=== PATIENT | female | born 1960 | race Caucasian/White ===

== ENCOUNTER → 2018-07-17 07:42 | Outpatient (CLI) | payer OTHER, SELFPAY ==
--- NOTE | 2018-07-17 07:45 | BI_ITS ---
MAMMOGRAPHY - BILATERAL SCREENING REASON FOR EXAM: Female, 57 years old. Routine annual screening examination. PERTINENT HISTORY: Aunt with breast cancer. TECHNIQUE: Digital bilateral breast tomasa (3D mammographic acquisition) in the CC and MLO projections. 2-D mediolateral oblique (MLO) and craniocaudad (CC) views of both breasts were obtained. CAD: Full Field Digital Mammography with Computer Added Detection was performed. COMPARISON: Comparison is made with prior examination of July 05, 2016 and April 12, 2012. FINDINGS: Breast Composition: The breasts are heterogeneously dense, which may obscure small masses. There are no dominant masses or suspicious calcifications. No other significant abnormalities are identified. There has been no significant change since the prior study. BI/SCREENING MAMM (CAD), BILAT IMPRESSION: Stable bilateral screening mammogram. Yearly follow-up mammogram recommended. (A) ASSESSMENT CATEGORY: BIRADS Category 1: Negative. A letter regarding these results will be sent to the patient by the facility within 30 days. Approximately 10% of breast cancers are not detected by mammography. A normal mammogram should not delay biopsy of a clinically suspicious abnormality. [id number] Electronically Signed: Willy Wheat MD at 9:36 EDT Tel [phone], Service support ,
--- NOTE | 2018-07-17 08:08 | BD_ITS ---
STUDY: DUAL ENERGY X-RAY ABSORPTIOMETRY / DXA REASON FOR EXAM: Female, 57 years old. The patient is postmenopausal. Loss of height. TECHNIQUE: Bone Mineral Density (BMD) measurements of lumbar spine and bilateral hips were obtained. COMPARISON: Comparison is made with prior study dated July 05, 2016. FINDINGS: Lumbar Spine (L1-L4): g/cm2 (0.990) / T-score (-1.5) / Z-score (-0.5) Findings are suggestive of osteopenia with a moderate fracture risk. Left Femur Total: g/cm2 (0.915) / T-score (-0.7) / Z-score (0.1) Left Femoral Neck: g/cm2 (0.883) / T-score (-1.1) / Z-score (0.0) Right Femur Total: g/cm2 (0.863) / T-score (-1.1) / Z-score (-0.3) Right Femoral Neck: g/cm2 (0.839) / T-score (-1.4) / Z-score (-0.3) The T-Scores on the most recent prior examination were: Lumbar Spine (L1-L4): There has been worsening of bone density since the previous examination. Left Femur Total: which represents a worsening of 8.1%. Right Femur Total: which represents a worsening of 5.7%. BD/Dexa Bone Density Study IMPRESSION: The patient is considered osteopenic as outlined below according to World Aram Organization (WHO) criteria with a moderate fracture risk. There has been worsening of bone density since the previous examination. Reference Information: The T-score is the number of standard deviations above or below the standard which is normal for young adults at their peak bone mineral density. The World Health Organization (WHO) interprets the T-scores as follows: Above -1 Normal bone density Between -1 and -2.5 Osteopenia Equal to / or below -2.5 Osteoporosis As a practical clinical guideline, osteopenia may be graded as follows: Mild -1 through -1.5 Moderate -1.6 through -2.0 Severe -2.1 through -2.4 The Z-score is the number of standard deviations above or below age-matched controls. A Z-score of less than -1.5 would be considered abnormal. References: 1. NIH Osteoporosis and Related Bone Diseases http://www.osteo.org 2. International Society for Clinical Densitometry http://www.iscd.org 3. National Osteoporosis Foundation http://www.nof.org Electronically Signed: Willy Wheat MD at 13:56 EDT Tel [phone], Service support ,
== END ==
PROVIDERS: Family Provider Internal Medicine; PCP Internal Medicine; Referring Provider Internal Medicine; Visit Provider Internal Medicine
DX: Z12.31 Encounter for screening mammogram for malignant neoplasm of breast (principal); Z78.0 Asymptomatic menopausal state
CPT/HCPCS: 77063; 77067; 77080

== ENCOUNTER → 2021-04-06 15:44 | Outpatient (CLI) | payer OTHER, SELFPAY ==
--- NOTE | 2021-04-06 15:47 | BI_ITS ---
MAMMOGRAPHY - BILATERAL SCREENING 3-D TOMOSYNTHESIS REASON FOR EXAM: Female, 60 years old. SCREENING PERTINENT HISTORY: No significant family history. TECHNIQUE: 2-D mammograms and 3-D Tomosynthesis of the breast (s) were performed. CAD was performed. COMPARISON: 07/17/2018. FINDINGS: Again noted heterogeneous prominence of the fibroglandular tissue without evidence of any spiculated lesion, microcalcifications, skin thickening or nipple retraction. No significant lymph nodes noted in the axillary areas on either side. The previously seen calcifications on the left are no longer detected in today''s examination BI/SCRN MAMM (CAD)W/YAHAIRA BILAT IMPRESSION: No mammographic signs of malignancy. Routine yearly mammograms recommended. ASSESSMENT CATEGORY: BIRADS Category 1: Negative. A letter regarding these results will be sent to the patient by the facility within 30 days. FOLLOW UP RECOMMENDATION: Yearly follow up mammogram recommended. (A) Approximately 10% of breast cancers are not detected by mammography. A normal mammogram should not delay biopsy of a clinically suspicious abnormality. Electronically Signed: Colten Brice, at 12:35 EDT Tel , Service support ,
--- NOTE | 2021-04-06 15:56 | BD_ITS ---
STUDY: DUAL ENERGY X-RAY ABSORPTIOMETRY / DXA REASON FOR EXAM: Female, 60 years old. Z780. Patient is postmenopausal. Loss of height. TECHNIQUE: Bone Mineral Density (BMD) measurements of lumbar spine and bilateral hips were obtained. COMPARISON: Comparison is made with prior study 07/17/2018. FINDINGS: Lumbar Spine (L1-L4): g/cm2 (0.945) / T-score (-2.0) / Z-score (-0.7) Findings are suggestive of osteopenia with a moderate fracture risk. Left Femur Total: g/cm2 (0.845) / T-score (-1.3) / Z-score (-0.3) Left Femoral Neck: g/cm2 (0.808) / T-score (-1.7) / Z-score (-0.4) Right Femur Total: g/cm2 (0.817) / T-score (-1.5) / Z-score (-0.6) Right Femoral Neck: g/cm2 (0.748) / T-score (-2.1) / Z-score (-0.8) The T-Scores on the most recent prior examination were: Lumbar Spine (L1-L4): There has been worsening of bone density since the previous examination. Left Femur Total: which represents a worsening of 7.7%. Right Femur Total: which represents a worsening of 5.3%. BD/Dexa Bone Density Study IMPRESSION: The patient is considered osteopenic as outlined below according to World Aram Organization (WHO) criteria with a moderate fracture risk. There has been worsening of bone density since the previous examination. Reference Information: The T-score is the number of standard deviations above or below the standard which is normal for young adults at their peak bone mineral density. The World Health Organization (WHO) interprets the T-scores as follows: Above -1 Normal bone density Between -1 and -2.5 Osteopenia Equal to / or below -2.5 Osteoporosis As a practical clinical guideline, osteopenia may be graded as follows: Mild -1 through -1.5 Moderate -1.6 through -2.0 Severe -2.1 through -2.4 The Z-score is the number of standard deviations above or below age-matched controls. A Z-score of less than -1.5 would be considered abnormal. References: 1. NIH Osteoporosis and Related Bone Diseases www osteo.org 2. International Society for Clinical Densitometry www iscd.org 3. National Osteoporosis Foundation www nof.org Electronically Signed: Willy Wheat MD at 8:31 EDT , Service support ,
== END ==
PROVIDERS: PCP Internal Medicine; Referring Provider Internal Medicine; Visit Provider Internal Medicine
DX: Z12.31 Encounter for screening mammogram for malignant neoplasm of breast (principal); Z78.0 Asymptomatic menopausal state
CPT/HCPCS: 77063; 77067; 77080

== ENCOUNTER → 2021-07-26 15:56 | Outpatient (CLI) | payer OTHER, SELFPAY ==
--- NOTE | 2021-07-26 15:59 | RAD_ITS ---
HISTORY: COUGH. TECHNIQUE: XR Chest 2 Views. # of images incl. paperwork: 2. COMPARISON: None. FINDINGS: CARDIOMEDIASTINAL STRUCTURES: Cardiac silhouette not enlarged. Mediastinal contour unremarkable. LUNGS: Radiographically clear. PLEURA: No pleural effusion or pneumothorax. OSSEOUS STRUCTURES: Unremarkable. RAD/Chest PA and Lateral IMPRESSION: No radiographic evidence of acute cardiopulmonary disease. at 1522 Reported and signed by: Bella Soares MD Electronically Signed: Bella Soares MD at 15:21 EDT Tel , Service support ,
== END ==
PROVIDERS: PCP Internal Medicine; Referring Provider Internal Medicine; Visit Provider Internal Medicine
DX: R05.9 Cough, unspecified (principal)
CPT/HCPCS: 71046

== ENCOUNTER → 2021-08-26 15:38 | Outpatient (CLI) | payer OTHER, SELFPAY ==
--- NOTE | 2021-08-26 15:45 | CT_ITS ---
STUDY: CTA CHEST REASON FOR EXAM: Female, 61 years old. PLEURITIC CHEST PAIN -- PE SUSPECTED,LOW/INTERMEDIATE PROB,NEG DDIMER RADIATION DOSAGE (If Supplied By Facility): CTDIvol = ( 4.27 ) mGy, DLP = ( 139.89 ) mGycm TECHNIQUE: The examination was performed with the intravenous administration of IV 75mL Isovue-370. Post-processing of the angiographic images was performed, with multiplanar reformation and 3D reconstruction. Individualized dose optimization techniques were used for this CT. COMPARISON: None. FINDINGS: Normal enhancement of the main pulmonary artery and right and left pulmonary arteries. Normal enhancement of the bilateral peripheral pulmonary arteries. There is no demonstrated pulmonary embolism. Normal thoracic aorta and visualized great vessels. There is no demonstrated aortic dissection. Normal heart and pericardium. Normal mediastinum. Normal hilar regions. Normal visualized trachea and bronchi. The lungs are well expanded. Mild right middle lobe scarring/atelectasis medially. Normal pleura. Normal chest wall structures. Normal osseous structures. Normal visualized upper abdomen. CT/CTA Chest W/WO Contrast IMPRESSION: No demonstrated pulmonary embolism or arterial dissection. Electronically Signed: Otis Hicks DO at 16:22 EST Tel [phone], Service support ,
[2021-08-26 16:01] LABS: CREATININE FINGERSTICK < 0.6 mg/dL (0.55-1.02); EGFR FINGERSTICK > 60.0000 mL/min (>60)
== END ==
PROVIDERS: PCP Internal Medicine; Referring Provider Internal Medicine; Visit Provider Internal Medicine
DX: R07.81 Pleurodynia (principal)
CPT/HCPCS: 71275; Q9967

== ENCOUNTER 2021-12-22 06:48 | Outpatient (CLI) | payer OTHER, SELFPAY ==
[2021-12-22] MEDS: Methacholine Chloride 18 ml neb kit INHALATION (07:06)
--- NOTE | 2021-12-22 12:59 | BRONCHALL_ITS ---
Bronchoprovocation Challenge Bronchoprovocation Challenge Bronchoprovocation Challenge: INTRODUCTION: The patient is a 61-year-old female who presents for a methacholine challenge secondary to a diagnosis of chronic cough. Respiratory therapy reported good patient effort. Contraindications for testing was reviewed with the patient. INTERPRETATION: Initial spirometry did not show any large airways obstructive ventilatory defect and preserved airflows throughout. The patient was then given progressively in creasing doses of methacholine in a standardized fashion. At no point during testing did the patient's FEV1 drop to the threshold criteria to be considered a positive test. IMPRESSION: Negative methacholine challenge.
== END 2021-12-22 23:59 | disposition home or self-care (01) ==
LOC: PSN 06:50
PROVIDERS: PCP Internal Medicine
DX: R05.3 Chronic cough (principal)
CPT/HCPCS: 94070; 95070

== ENCOUNTER → 2022-08-26 | Outpatient (CLI) | payer OTHER, SELFPAY ==
--- NOTE | 2022-08-26 13:16 | BI_ITS ---
MAMMOGRAPHY - BILATERAL SCREENING REASON FOR EXAM: Female, 62 years old. Routine annual screening examination. PERTINENT HISTORY: Mother with breast cancer. Aunts with breast cancer. TECHNIQUE: Digital bilateral breast yahaira (3D mammographic acquisition) in the CC and MLO projections. 2-D mediolateral oblique (MLO) and craniocaudad (CC) views of both breasts were obtained. CAD: Full Field Digital Mammography with Computer Added Detection was performed. COMPARISON: Comparison is made with prior study dated 04/06/2021 and 07/17/2008. FINDINGS: Breast Composition: The breasts are heterogeneously dense, which may obscure small masses. There are no dominant masses or suspicious calcifications. Stable small benign appearing bilateral axillary nodes. No other significant abnormalities are identified. There has been no significant change since the prior study. BI/SCRN MAMM (CAD)W/YAHAIRA BILAT IMPRESSION: Stable bilateral screening mammogram. Yearly follow-up mammogram recommended. (A) ASSESSMENT CATEGORY: BIRADS Category 2: Benign. A letter regarding these results will be sent to the patient by the facility within 30 days. Approximately 10% of breast cancers are not detected by mammography. A normal mammogram should not delay biopsy of a clinically suspicious abnormality. [id number] Electronically Signed: Willy Wheat MD at 14:51 EST ,
== END | disposition home or self-care (01) ==
LOC: OPBI 13:04
PROVIDERS: PCP Internal Medicine; Visit Provider Internal Medicine
DX: Z12.31 Encounter for screening mammogram for malignant neoplasm of breast (principal); Z80.3 Family history of malignant neoplasm of breast
CPT/HCPCS: 77063; 77067

== ENCOUNTER → 2022-09-12 | Outpatient (CLI) | payer SELFPAY ==
--- NOTE | 2022-09-12 15:51 | CT_ITS ---
INDICATION: Chronic cough for 14 months. Previous smoker (quit 22 years ago). EXAMINATION: CT CHEST WITH CONTRAST - CT Chest W/ Contrast Injection TECHNIQUE: Helically acquired images were obtained of the chest following IV contrast. A radiation dose optimization technique was used for this scan. IV Contrast dosage and agent: 100 mL of Isovue-300 COMPARISON: CTA of the chest, August 26, 2021. FINDINGS: LUNGS, PLEURA AND LARGE AIRWAYS: Lungs are well-expanded. There is minimal pleural thickening in the lung apices. There is a small nodular density in the left upper lobe along the horizontal fissure measuring approximately 6 mm in diameter (image 60, series 4). At the same level there is a smaller nodular density measuring 3 mm slightly more lateral. Minimal dependent changes in the anterior lingula. Lungs are otherwise clear. No focal mass or infiltrate No pleural effusion. THYROID: No thyroid lesions. HEART AND PERICARDIUM: Heart size is normal. No pericardial effusion. Minimal coronary artery calcifications. VESSELS: Thoracic aorta is not dilated. No aortic dissection. No obvious central pulmonary embolism although this study was not performed with the pulmonary embolism protocol. MEDIASTINUM AND GIOVANNI: No mediastinal or hilar adenopathy. Esophagus is unremarkable. No hiatal hernia. UPPER ABDOMEN: No acute pathology. BONES: No suspicious lytic or blastic abnormality. CT/Chest WITH Contrast IMPRESSION: Small nodular density in the left upper lobe. The area of consolidation.. Other smaller nodular densities are also noted. No evidence of acute cardiopulmonary disease. Electronically Signed: Alfredito De Jesus DO at 17:54 EST Reading Location ID and State: [address] [place] [address] Tel [phone], Service support ,
[2022-09-12 16:20] LABS: CREATININE FINGERSTICK < 0.9 mg/dL (0.55-1.02); EGFR FINGERSTICK > 60.0000 mL/min (>60)
== END | disposition home or self-care (01) ==
LOC: CT 15:50
PROVIDERS: PCP Internal Medicine; Referring Provider Internal Medicine; Visit Provider Internal Medicine
DX: R05.9 Cough, unspecified (principal)
CPT/HCPCS: 71260; Q9967

== ENCOUNTER → 2022-10-03 | Outpatient (CLI) | payer OTHER, SELFPAY ==
[2022-10-03 08:20] LABS: Erythrocyte Sedimentation Rate 5 mm/hr (0-30)
[2022-10-03 08:22] LABS: Absolute Lymphocyte Count 2.74 X10^3/uL (0.83-4.51); Absolute Neutrophil Count 3.6 X10^3/uL (2.0-7.7); Basophil# 0.03 X10^3/uL; Basophil% 0.4 % (0-1); Eosinophil# 0.14 X10^3/uL; Hematocrit 40.6 % (37-47); Hemoglobin 13.4 g/dL (12.0-15.0); Lymphocyte # 2.74 X10^3/ul (0.83-4.51); Lymphocyte % 38.5 % (19-41); Mean Corpuscular Hgb 29.2 pg (27.0-32.0); Mean Corpuscular Volume 88.5 fL (81-99); Mean Platelet Vol. 9.7 fl (6.2-12.0); Monocyte# 0.55 X10^3/uL; Monocyte% 7.7 % (0-10); NRBC Flagged by Analyzer 0 % (0-5); Neutrophil % 50.7 % (47-70); Platelet Count 311 K/mm3 (150-450); RBC Distribution Width CV 12.2 % (11.6-14.6); RBC Distribution Width SD 39.6 fl (35.1-43.9); Red Blood Count 4.59 M/mm3 (4.2-5.4); White Blood Count 7.1 K/mm3 (4.4-11.0)
[2022-10-05 22:06] LABS: Alternaria tenuis <0.10 kU/L (Class 0); Ash, White <0.10 kU/L (Class 0); Aspergillus fumigatus <0.10 kU/L (Class 0); Bermuda Grass <0.10 kU/L (Class 0); Birch <0.10 kU/L (Class 0); Black Walnut <0.10 kU/L (Class 0); Cat Hair / Dander,Stand <0.10 kU/L (Class 0); Cedar, Mountain <0.10 kU/L (Class 0); Cladosporium herbarum <0.10 kU/L (Class 0); Cockroach, American <0.10 kU/L (Class 0); Cottonwood <0.10 kU/L (Class 0); D farinae Mite <0.10 kU/L (Class 0); D pteronyssinus <0.10 kU/L (Class 0); Dog Epithelia <0.10 kU/L (Class 0); Elm, American White <0.10 kU/L (Class 0); Immunoglobulin E < 2 IU/mL (6-495); Maple/Box Elder <0.10 kU/L (Class 0); Mouse Urine <0.10 kU/L (Class 0); Mulberry, White <0.10 kU/L (Class 0); Oak, White <0.10 kU/L (Class 0); Pecan <0.10 kU/L (Class 0); Penicillium Notatum <0.10 kU/L (Class 0); Pigweed, Rough <0.10 kU/L (Class 0); Ragweed, Short/Common <0.10 kU/L (Class 0); Russian Thistle <0.10 kU/L (Class 0); Sheep Sorrel <0.10 kU/L (Class 0); Sycamore, American <0.10 kU/L (Class 0); Timothy Grass <0.10 kU/L (Class 0)
[2022-10-05 23:18] LABS: ANTINUCLEAR ANTIBODIES DIRECT Negative (Negative)
[2022-10-06 00:06] LABS: QNTFERON TB Mitogen Value > 10.00 IU/mL (.); QNTFERON TB Nil Value 0.01 IU/mL (.); QNTFERON TB1+ Ag Value 0.01 IU/mL (.); QNTFERON TB2+ Ag Value 0.01 IU/mL (.)
[2022-10-06 16:30] LABS: B. pertussis IgA < 1.0 index (0.0-0.9); B. pertussis IgM < 1.0 index (0.0-0.9); Immunoglobulin E < 2 IU/mL (6-495); QNTIFERON TB Positive Criteria Negative (Negative)
== END | disposition home or self-care (01) ==
LOC: PSN 08:02
PROVIDERS: PCP Internal Medicine; Referring Provider Internal Medicine; Visit Provider Internal Medicine
DX: R05.3 Chronic cough (principal); J47.9 Bronchiectasis, uncomplicated
CPT/HCPCS: 36415; 82785; 85025; 85652; 86003; 86038; 86225; 86235; 86480; 86615; 87633; C9803

== ENCOUNTER → 2022-10-26 | Outpatient (CLI) | payer OTHER, SELFPAY ==
--- NOTE | 2022-10-14 10:27 | ST.MBS ---
Modified Barium Swallow - Patient Information Study Date: 10/14/22 Study Time: 13:00 Diagnosis: Chronic cough (R05.3) Referring Physician: Ryan Turcios Reason for Referral: Objectively assess swallow function, assess risk for aspiration, and determine recommendations for least restrictive diet textures and compensatory strategies to improve safety of swallow. Medical History: The patient is a 62-year-old female with PMH including chronic cough and bronchiectasis. Due to chronic cough, modified barium swallow was recommended during her most recent pulmonology visit on 09/27/2022 to rule out microaspiration. - Penetration-Aspiration Scale Penetration-Aspiration Scale: OBJECTIVE ASSESSMENT OF SWALLOW FUNCTION (QUANTITATIVE ? PER TRIAL): PENETRATION / ASPIRATION SCALE (DAUGHERTY): 1 = does not enter airway 2 = enters airway/above vocal folds/ejected 3 = enters airway/above vocal folds/not ejected 4 = enters airway/contacts vocal folds/ejected 5 = enters airway/contacts vocal folds/not ejected 6 = enters airway/below vocal folds/ejected 7 = enters airway/below vocal folds/not ejected despite effort 8 = enters airway/below vocal folds/no effort VIDEOFLOROSCOPIC SCALE SCORE (DAUGHERTY): Grade I = aspiration of material that has penetrated into the laryngeal vestibule, intact cough reflex Grade II = aspiration < 10 % of the bolus, intact cough reflex Grade III = aspiration of < 10 % of the bolus, reduced cough reflex or aspiration of > 10 % of the bolus, intact cough reflex Grade IV = aspiration of > 10 % of the bolus, reduced cough reflex - Status Active ST Patient: Active - Contact Information [facility] Speech Therapy:: Marialuisa Claire M.A. [facility]-STORY ANALYST Speech-Language Pathologist [facility] [address] [place] [address] [email or web address] [phone] 10/14/22 10:28
--- NOTE | 2022-10-26 13:27 | ST.MBS ---
Modified Barium Swallow - Patient Information Study Date: 10/26/22 Study Time: 13:00 Direct Billable Minutes: 40 Total Minutes procedure & reportin Diagnosis: bronchiectasis; chronic cough Referring Physician: Ryan Turcios Reason for Referral: Chronic cough, with a small amount of bronchiectasis and scarring of the anterior peripheral right middle lobe. Cough occurred every winter for several years prior to developing a constant and mostly dry cough in June 2021. Referred for MBSS to r/o microaspiration. Medical History: chronic cough Current Diet Ordered: regular/thin Dentition: WNL Mental Status: WNL Respiratory Status: Oxygenating on Room Air - Penetration-Aspiration Scale Penetration-Aspiration Scale: OBJECTIVE ASSESSMENT OF SWALLOW FUNCTION (QUANTITATIVE ? PER TRIAL): PENETRATION / ASPIRATION SCALE (DAUGHERTY): 1 = does not enter airway 2 = enters airway/above vocal folds/ejected 3 = enters airway/above vocal folds/not ejected 4 = enters airway/contacts vocal folds/ejected 5 = enters airway/contacts vocal folds/not ejected 6 = enters airway/below vocal folds/ejected 7 = enters airway/below vocal folds/not ejected despite effort 8 = enters airway/below vocal folds/no effort VIDEOFLOROSCOPIC SCALE SCORE (DAUGHERTY): Grade I = aspiration of material that has penetrated into the laryngeal vestibule, intact cough reflex Grade II = aspiration < 10 % of the bolus, intact cough reflex Grade III = aspiration of < 10 % of the bolus, reduced cough reflex or aspiration of > 10 % of the bolus, intact cough reflex Grade IV = aspiration of > 10 % of the bolus, reduced cough reflex - Oral Phase Labial Seal: No Labial Escape Tongue Control During Bolus Hold: Cohesive bolus between tongue to palatal seal Bolus Preparation/Mastication: Slow prolonged chewing/mashing with complete recollection Bolus Transport/Lingual Motion: Slowed tongue motion Oral Residue: Residue collection on oral structures - Pharyngeal Phase Initiation of Pharyngeal Swallow: Bolus head at posterior angle of ramus at first hyoid excursion Soft Palate Elevation: No bolus between soft palate and pharyngeal wall Laryngeal Elevation: Comp. Superior move thyroid cart w/comp. apprx arytenoid cart-epig pet Anterior Hyoid Excursion: Partial anterior movement Epiglottic Movement: Complete inversion Laryngeal Vestibule Closure at Height of Swallow: Complete; no air/contrast in laryngeal vestibule Pharyngeal Stripping Wave: Present - complete Pharyngoesophageal Segment Opening: Complete distension and complete duration; no obstruction of flow Tongue Base Retraction: Trace column of contrast between tongue base & post. pharyngeal wall Pharyngeal Residue: Trace residue within or on pharyngeal structures - Esophageal Phase Esophageal Clearance: Esophageal retention - Diagnosis/Impression Diagnosis: oropharyngeal swallow is grossly WNL Impression: The oral phase is characterized by: -mildly prolonged mastication w/ slowed lingual motion for A-P bolus transportation -piecemeal deglutition pattern utilized w/ solid texture trial (functional) The pharyngeal phase is characterized by: -mild reduction in anterior hyoid excursion w/ resulting trace-mild vallecular residue retention -complete laryngeal vestibule closure during and after deglutition w/ no penetration or aspiration occurring across all trials assessed The esophageal phase is characterized by: -esophageal retention of pudding bolus noted, would consider further assessment via GI referral Chronic cough does not appear to be related to swallow function. Overall swallow function is grossly WNL. - Recommendations Diet: Regular Textures, Thin Liquids Recommend Repeat Modified Barium Swallow: No Need for Skilled Speech Therapy Services: No Recommended Referrals: GI Consult Education Completed: 1. Described result of evaluation., 2. Pt understands evaluation & agrees with goals and treatment plan. - Status Active ST Patient: Active - Contact Information [facility] Speech Therapy:: Karina Munson M.A., CCC-[employer] [place] [address] [place] [address] x [phone] [email or web address]
== END | disposition home or self-care (01) ==
LOC: RAD 12:45
PROVIDERS: PCP Internal Medicine; Referring Provider Internal Medicine; Visit Provider Internal Medicine
DX: R05.3 Chronic cough (principal); J47.9 Bronchiectasis, uncomplicated
CPT/HCPCS: 74230; 92611

== ENCOUNTER → 2022-12-02 | Outpatient (CLI) | payer OTHER, SELFPAY ==
--- NOTE | 2022-12-02 12:48 | CT_ITS ---
STUDY: CT CHEST WITHOUT CONTRAST REASON FOR EXAM: Female, 62 years old. Follow up lung nodule RADIATION DOSAGE (If Supplied By Facility): CTDIvol = ( 6.13 ) mGy, DLP = ( 205.36 ) mGycm TECHNIQUE: Transaxial imaging was performed without the administration of intravenous contrast material. Multiplanar coronal and sagittal images were reformatted. Individualized dose optimization techniques were used for this CT. COMPARISON: Comparison is made with prior study 09/12/2022. FINDINGS: CHEST Stable mild scarring at the lung apices slightly more prominent on the right side. The previously seen nodular densities in the anterior medial aspect of the right middle lobe have improved. Minimal residual scarring is seen at that site. There is also evidence of mild degree of bronchiectasis in the medial aspect of the right middle lobe. Stable mild scarring in the anterior medial aspect of the lingular segment of the left upper lobe. The previously seen tiny nodules in the posterior aspect of the lingular segment of the left upper lobe have resolved. There is no demonstrated pleural abnormality. There are calcifications of the coronary arteries. There are multiple small lymph nodes within the mediastinum, which are normal in size and morphology most compatible with reactive lymph hyperplasia. Normal hilar regions. Normal unenhanced pulmonary arteries. There is atherosclerotic calcification of the aortic arch. There are multi-level degenerative changes of the thoracic spine. Small hiatal hernia. CT/Chest without Contrast IMPRESSION: Since prior study, there is been improved aeration as described. No new abnormality is seen. Electronically Signed: Willy Wheat MD at 14:48 EST ,
== END | disposition home or self-care (01) ==
LOC: CT 12:46
PROVIDERS: PCP Internal Medicine; Referring Provider Internal Medicine; Visit Provider Internal Medicine
DX: R91.1 Solitary pulmonary nodule (principal)
CPT/HCPCS: 71250

== ENCOUNTER → 2023-08-02 | Outpatient (CLI) | payer OTHER, SELFPAY ==
[2023-08-02 10:30] LABS: Erythrocyte Sedimentation Rate 7 mm/hr (0-30)
[2023-08-02 10:31] LABS: Absolute Lymphocyte Count 1.44 X10^3/uL (0.83-4.51); Absolute Neutrophil Count 3.1 X10^3/uL (2.0-7.7); Basophil# 0.04 X10^3/uL; Basophil% 0.8 % (0-1); Eosinophil# 0.11 X10^3/uL; Eosinophils% 2.1 % (0-5); Hematocrit 41.4 % (37-47); Hemoglobin 13.2 g/dL (12.0-15.0); Lymphocyte # 1.44 X10^3/ul (0.83-4.51); Lymphocyte % 27.7 % (19-41); Mean Corp Hgb Conc 31.9 g/dL (32-36); Mean Corpuscular Hgb 28.8 pg (27.0-32.0); Mean Corpuscular Volume 90.4 fL (81-99); Mean Platelet Vol. 11.2 fl (6.2-12.0); Monocyte# 0.54 X10^3/uL; Monocyte% 10.4 % (0-10); NRBC Flagged by Analyzer 0 % (0-5); Neutrophil # 3.05 X10^3/uL (2.7-7.7); Neutrophil % 58.6 % (47-70); Platelet Count 280 K/mm3 (150-450); RBC Distribution Width CV 12.3 % (11.6-14.6); RBC Distribution Width SD 40.5 fl (35.1-43.9); Red Blood Count 4.58 M/mm3 (4.2-5.4); White Blood Count 5.2 K/mm3 (4.4-11.0)
[2023-08-02 10:47] LABS: Vitamin B12 370 pg/mL (211-911); Vitamin D,25 Hydroxy 27.3 ng/mL
[2023-08-02 11:03] LABS: AST(SGOT) 24 U/L (15-37); Alanine Aminotransfer ALT/SGPT 32 U/L (13-56); Albumin, Serum 3.4 g/dL (3.2-5.0); Alkaline Phosphatase 96 U/L (45-117); Anion Gap 4 (5-15); BUN 7 mg/dL (7-18); BUN/Creat Ratio 10.2 RATIO (10-20); CRP < 2.90 mg/L (0.0-3.0); Calcium,Total 8.7 mg/dL (8.5-10.1); Chloride 108 mmol/L (98-107); Cholesterol 201 mg/dL (200); Creatinine, Serum 0.69 mg/dL (0.55-1.02); EST Glomerular Filtration Rate 92 mL/min (>60); Est Glom Filt Rate - Afr Amer 111 mL/min (>60); Globulin 3.4 g/dL (2.2-4.2); Glucose 96 mg/dL (74-106); High Density Lipoprotein 71 mg/dL; Potassium 3.7 mmol/L (3.5-5.1); Protein, Total 6.8 g/dL (6.4-8.2); Rheumatoid Factor < 10.0 IU/mL (<15); Sodium Level 141 mmol/L (136-145); Thyroid Stim Hormone (TSH) 2.59 uIU/mL (0.358-3.74); Triglycerides 84 mg/dL; Very Low Density Lipoprotein 17 mg/dL (5-40)
[2023-08-03 13:08] LABS: ANTINUCLEAR ANTIBODIES DIRECT Negative (Negative)
[2023-08-04 16:09] LABS: Lyme IgG P18 Ab Absent (.); Lyme IgG P23 Ab Absent (.); Lyme IgG P28 Ab Absent (.); Lyme IgG P30 Ab Absent (.); Lyme IgG P39 Ab Absent (.); Lyme IgG P41 Ab Absent (.); Lyme IgG P45 Ab Absent (.); Lyme IgG P58 Ab Absent (.); Lyme IgG P66 Ab Absent (.); Lyme IgG P93 Ab Absent (.); Lyme IgG WB Interpretation Negative (.); Lyme IgM P23 Ab Absent (.); Lyme IgM P39 Ab Absent (.); Lyme IgM P41 Ab Absent (.); Lyme IgM WB Interpretation Negative (.)
== END | disposition home or self-care (01) ==
PROVIDERS: PCP Internal Medicine; Referring Provider Internal Medicine; Visit Provider Internal Medicine
DX: Z00.01 Encounter for general adult medical examination with abnormal findings (principal); E55.9 Vitamin D deficiency, unspecified; R53.83 Other fatigue; S10.96XA Insect bite of unspecified part of neck, initial encounter
CPT/HCPCS: 36415; 80053; 80061; 82306; 82607; 84443; 85025; 85652; 86038; 86140; 86431; 86617

== ENCOUNTER → 2023-11-22 | Outpatient (CLI) | payer OTHER, SELFPAY ==
--- NOTE | 2023-11-22 07:09 | BI_ITS ---
MAMMOGRAPHY - BILATERAL SCREENING REASON FOR EXAM: Female, 63 years old. Routine annual screening examination. PERTINENT HISTORY: Mother with breast cancer. Aunt with breast cancer. TECHNIQUE: Digital bilateral breast yahaira (3D mammographic acquisition) in the CC and MLO projections. 2-D mediolateral oblique (MLO) and craniocaudad (CC) views of both breasts were obtained. CAD: Full Field Digital Mammography with Computer Added Detection was performed. COMPARISON: Comparison is made with prior examination dated August 26, 2022 and April 06, 2021. FINDINGS: Breast Composition: The breasts are heterogeneously dense, which may obscure small masses. There are no dominant masses or suspicious calcifications. No other significant abnormalities are identified. There has been no significant change since the prior study. BI/SCRN MAMM (CAD)W/YAHAIRA BILAT IMPRESSION: Stable bilateral screening mammogram. Yearly follow-up mammogram recommended. (A) ASSESSMENT CATEGORY: BIRADS Category 1: Negative. A letter regarding these results will be sent to the patient by the facility within 30 days. Approximately 10% of breast cancers are not detected by mammography. A normal mammogram should not delay biopsy of a clinically suspicious abnormality. [id number] Electronically Signed: Willy Wheat MD at 8:49 EST ,
--- OUTSIDE RECORDS SUMMARY | 2023-11-22 07:11 | XMS RPT_ITS | CCD ---
Author Name Unknown Address [address] [place] [address] Organization [facility] Care Team Providers Care Outside Medical Sales Representative Name Role Phone Gisselle Huggins Unavailable Jonathan Rob Unavailable Sugey Peters Unavailable Unavailable Mirta Sanchez Unavailable Unavailable Unavailable Unavailable Ching Murphy Unavailable Unavailable Gisselle Huggins DO Unavailable Dr. Jonathan Rob Unavailable Luisa Naylor LPN Unavailable Unavailable Ching Murphy RN Unavailable Unavailable Fran LONDONO Sugey Unavailable Unavailable Mirta Sanchez Unavailable Unavailable Unavailable Unavailable Eve Bean CMA Unavailable Unavailable Gisselle Huggins DO Primary Care Provider GISSELLE HUGGINS DO Consulting Unavailable MOHAN, DR NESTOR Delaney Primary Care Unavaila ble MOHAN, DR NESTOR Delaney Attending Unavaila ble MOHAN, DR NESTOR Delaney Admitting Unavaila ble PROVIDER, UNKNOWN Consulting Unavailable MOHAN, DR NESTOR Delaney Admitting Unavaila ble GISSELLE HUGGINS DO Consulting Unavailable MOHAN, DR NESTOR Delaney Primary Care Unavaila ble MOHAN, DR NESTOR Delaney Attending Unavaila ble PROVIDER, UNKNOWN Consulting Unavailable MOHAN, DR NESTOR Delaney Admitting Unavaila ble MOHAN, DR NESTOR Delaney Primary Care Unavaila ble MOHAN, DR NESTOR Delaney Attending Unavaila ble MOHAN, DR NESTOR Delaney Primary Care Unavaila ble GISSELLE HUGGINS DO Consulting Unavailable MOHAN, DR NESTOR Delaney Attending Unavaila ble MOHAN, DR NESTOR Delaney Admitting Unavaila ble PROVIDER, UNKNOWN Consulting Unavailable Gisselle Huggins DO Unavailable Maurizio GATEHOUSE ATTENDANT, Jamari Unavailable Unavailable Fany Rivera Unavailable Fany Rivera Unavailable Too VÁZQUEZ, Kaylen Unavailable Unavailable Gisselle Huggins DO Primary Care Provider Kuldeep HEATH Dagmar Unavailable Unavailable Hamilton CEMENT OR CONCRETE FINISHING SUPERVISOR, Kayela Unavailable Unavailable Gisselle Huggins DO Attending Unavailable Gisselle Huggins DO Referring Unavailable Gisselle Huggins DO Consulting Unavailable Maciel Gerard Unavailable UNKNOWN, PROVIDER Attending Unavailable [place] GATEHOUSE ATTENDANT, Justin Unavailable Unavailable Luis VÁZQUEZ, JORGE Unavailable Unavailable JONAH GARIBAY Referring Unavailable GISSELLE HUGGISN Primary Care Unavailab JONAH Amado Attending Unavailable GISSELLE HUGGINS Primary Care Unavailab le Allergies Allergy Classification Reported Allergen(s) Allergy Type Date of Onset Reaction(s) Facility NEGATED: Highlighted row has been ruled out! (1 source) allergy to substance [facility] Work Phone: NEGATED: Highlighted row has been ruled out! (1 source) drug allergy 7 [facility] Work Phone: NEGATED: Highlighted row has been ruled out! (1 source) allergy to substance [facility] Work Phone: NEGATED: Highlighted row has been ruled out! (1 source) drug allergy 7 [facility] Work Phone: NEGATED: Highlighted row has been ruled out! (1 source) allergy to substance [facility] Work Phone: NEGATED: Highlighted row has been ruled out! (1 source) drug allergy 7 [facility] Work Phone: NEGATED: Highlighted row has been ruled out! (1 source) allergy to substance [facility] Work Phone: NEGATED: Highlighted row has been ruled out! (1 source) drug allergy 7 [facility] Work Phone: Medications Current Medications Medication Drug Class(es) Dates Sig (Normalized) Sig (Original) 14 actuat fluticasone furoate 0.1 mg/actuat / vilanterol 0.025 mg/actuat dry powder inhaler (13 sources) Corticosteroid, beta2-Adrenergic Agonist Start: 08-18-2022 End: 11-16-2022 fluticasone-vilant lit (BREO ELLIPTA) 100-25 mcg/dose inhaler Inhale 1 Inhalation as instructed once daily. 180 Each 3 08/18/2022 11/16/2022 Active Completed/Discontinued Medications Medication Drug Class(es) Dates Sig (Normalized) Sig (Original) [id number] 200 actuat albuterol 0.09 mg/actuat metered dose inhaler (18 sources) beta2-Adrenergic Agonist Start: 2021 End: 10-14-2021 ProAir HFA 108 (90 Base) MCG/ACT Inhalation Aerosol Solution 2 (two) Puff q6hr as needed cough and sob for 0 days Quantity: 1 {Unspecified} Refills: 1 Ordered: 14-Oct-2021 Melany Talbert LPN Start : 11-Aug-2021 End : 14-Oct-2021 Inactive Comments: Medication taken as needed. one inhaler Problems Active Problems Problem Classification Problem Date Documented Date Episodic/Chronic Chronic obstructive pulmonary disease and bronchiectasis (9 sources) Bronchiectasis; Translations: [Bronchiectasis, uncomplicated] Resolved: 07-31-2023 Chronic Chronic obstructive pulmonary disease and bronchiectasis (20 sources) Bronchitis; Translations: [Bronchitis] Resolved: 08-09-2021 07-27-2018 Episodic Coronary atherosclerosis and other heart disease (20 sources) Coronary atherosclerosis and other heart disease Fever of unknown origin (3 sources) Fever, unspecified; Translations: [Fever, unspecified] Onset: 10-05-2021 Episodic Headache, including migraine (20 sources) Headache; Translations: [Headache] Resolved: 11-26-2009 11-12-2014 Episodic Headache, including migraine (5 sources) Headache, including migraine; Translations: [Headache, unspecified] Onset: 10-05-2021 Immunizations and screening for infectious disease (20 sources) Need for prophylactic vaccination and inoculation against influenza; Translations: [Needs influenza immunization] 08-30-2018 Episodic Malaise and fatigue (20 sources) Fatigue; Translations: [Fatigue] 03-12-2021 Episodic Menopausal disorders (20 sources) Menopausal syndrome; Translations: [Menopausal flushing] Resolved: 11-12-2014 07-27-2018 Chronic Neoplasms of unspecified nature or uncertain behavior (20 sources) Neoplasm of uncertain behavior of skin; Translations: [Neoplasm of uncertain behavior of skin] Resolved: 04-06-2012 08-31-2015 Episodic Nutritional deficiencies (20 sources) Vitamin D deficiency, unspecified; Translations: [Unspecified vitamin D deficiency] 07-27-2018 Chronic Past or Other Problems Problem Classification Problem Date Documented Da te Episodic/Chronic Acute bronchitis (18 sources) Acute bronchitis Unclassified (19 sources) Influenza vaccination declined (Renamed from Refused influenza vaccine); Translations: [Influenza vaccination declined] 08-30-2018 Results Test Name Value Interpretation Reference Range Facil ity Vital Signs Date Time Vital Sign Value Performing Clinician Facility 07-31-2023 08:43-0400 Body height 152.4 cm JORGE Smith LPN [facility]; [facility] Work Phone: 07-31-2023 08:43-0400 Body mass index (BMI) [Ratio] 22.46 kg/m2 JORGE Smith LPN [facility]; [facility] Work Phone: 07-31-2023 08:43-0400 Body surface area Derived from formula 1.48 m2 JORGE Smith LPN [facility]; [facility] Work Phone: 07-31-2023 08:43-0400 Body temperature 97.9 [degF] JORGE Smith LPN [facility]; [facility] Work Phone: Encounters Encounter Date Encounter Type Care Provider Facility Start: 11-13-2023 End: 11-14-2023 [facility] Start: 11-08-2023 End: 11-08-2023 ambulatory JONAH GARIBAY Facility:[facility] Start: 07-31-2023 End: 07-31-2023 Office outpatient visit 25 minutes Gisselle Huggins DO Work Phone: [facility] Start: 07-31-2023 End: 07-31-2023 Patient encounter status Gisselle Huggins DO Work Phone: [facility]; [facility] Work Phone: Start: 07-31-2023 Review Gisselle Mccann n DO Work Phone: [facility] Start: 09-24-2022 End: 09-24-2022 ambulatory PROVIDER UNKNOWN Facility: Start: 09-21-2022 End: 09-22-2022 Office outpatient visit 10 minutes Gisselle Huggins DO Work Phone: [facility] Start: 09-19-2022 ambulatory Gissellehai Huggins DO [facility] Start: 09-16-2022 End: 09-16-2022 Annotation/Addendum Gisselle Huggins DO Work Phone: [facility] Start: 09-15-2022 Review Gisselle Cohno n DO Work Phone: [facility] Start: 09-15-2022 End: 09-16-2022 Office outpatient visit 10 minutes Gisselle Huggins DO Work Phone: [facility] Start: 08-18-2022 End: 08-18-2022 Patient encounter procedure Alba Cuellar CCC-CLINICAL PHLEBOTOMIST Work Phone: Otolaryngology Procedures Date Procedure Procedure Detail Performing Clinician Start: 12-02-2022 End: 12-02-2022 Chest without Contrast Procedure Note: See Note; NOTES: [facility] Imaging Services [address] [place] [id number] Chest without Contrast MR#: [id number] Acct: [id number] Name: SELENE ARGUETA Rep #: [id number] : 1960 F 62 From: Willy wynn MD PCP: Dr. Gisselle Huggins, DO Status: REG CLI Study: Chest without Contrast Date of Exam: 12/02/22 Exam# [id number] Ordering Dr: Ryan Turcios MD STUDY: CT CHEST WITHOUT CONTRAST REASON FOR EXAM: Female, 62 years old. Follow up lung nodule RADIATION DOSAGE (If Supplied By Facility): CTDIvol = ( 6.13 ) mGy, DLP = ( 205.36 ) mGycm TECHNIQUE: Transaxial imaging was performed without the administration of intravenous contrast material. Multiplanar coronal and sagittal images were reformatted. Individualized dose optimization techniques were used for this CT. COMPARISON: Comparison is made with prior study 09/12/2022. FINDINGS: CHEST Stable mild scarring at the lung apices slightly more prominent on the right side. The previously seen nodular densities in the anterior medial aspect of the right middle lobe have improved. Minimal residual scarring is seen at that site. There is also evidence of mild degree of bronchiectasis in the medial aspect of the right middle lobe. Stable mild scarring in the anterior medial aspect of the lingular segment of the left upper lobe. The previously seen tiny nodules in the posterior aspect of the lingular segment of the left upper lobe have resolved. There is no demonstrated pleural abnormality. There are calcifications of the coronary arteries. There are multiple small lymph nodes within the mediastinum, which are normal in size and morphology most compatible with reactive lymph hyperplasia. Normal hilar regions. Normal unenhanced pulmonary arteries. There is atherosclerotic calcification of the aortic arch. There are multi-level degenerative changes of the thoracic spine. Small hiatal hernia. CT/Chest without Contrast IMPRESSION: Since prior study, there is been improved aeration as described. No new abnormality is seen. Electronically Signed: Willy Wheat MD at 14:48 EST Reading Location ID and State: [address] [place] [address] , Service support , CC: Dr. Gisselle Huggins DO; Dr. Ryan Turcios MD Sequins Spooler: Signed Gisselle Huggins DO Work Phone: Start: 11-21-2022 End: 11-21-2022 Pulmonary Visit Report Procedure Note: See Note; NOTES: [facility] [place] [address] [place] [address] OFFICE VISIT Date of Service: 11/21/22 MR#: [id number] Acct: [id number] Name: SELENE ARGUETA Rep #: [id number] : 1960 Provider: Dr. Ryan figueroa MD Age/Sex: 62/F Location: [facility] Status: Signed Assessment and Plan Assessment and Plan (1) Bronchiectasis: Status: Chronic Comment: mild anteromedial right middle lobe (RML) bronchiectasis and <5mm probable inflammatory nodule in the anterior peripheral right middle lobe. Plan: Negative evaluation as summarized above. No further testing is necessary. Follow up here as needed a.? Stop inhalers including inhaled corticosteroids, which have not been effective, and increase her risk of recurrent pneumonia b.? Patient has been immunized for flu and pneumonia.??? Continue to have yearly recommended respiratory immunizations c.? Selene was advised to seek care for purulent respiratory infections within a few days of starting to produce more and/or purulent sputum, and early sputum C S followed by appropriate antibiotics, in order to rule out presence of resistant organisms and avoid progression of the small bronchiectatic area in the RML.??? She should have a lower threshold for use of antibiotics for acute bronchitis episodes with increased sputum, due to the presence of bronchiectasis d. Maintain smoke free. e. I would evaluate for cystic fibrosis variant if she declares herself with recurrent infections over the next 1-2 years, but do not think it is necessary at this time. f. Safe swallowing was reviewed with her today g. She was encouraged to remain smoke free. (2) Chronic cough: Status: Chronic Comment: 1.No evidence of swallowing disorder, except perhaps esophageal motility slowing. I don???t recommend GI evaluation at this time unless it becomes symptomatic. 2.No evidence of COPD, asthma, respiratory viral infection, tuberculosis, allergic or autoimmune disease (3) Lung nodule seen on imaging study: Status: Acute Comment: Less than 5 cm right middle lobe inflammatory infiltrate/nodule, This should be followed with a low dose chest CT in another year, due to her smoking history. I will review her old CT in radiology to assess stability. HPI 1 M FU Chief Complaint: cough follow up, no significant change since last visit, nonproductive. Details: 62-year-old female former [id number] smoker, quit 1999, patient of Gisselle Huggins DO returns for follow-up of anteromedial right middle lung mild bronchiectasis, anterior RML lung nodule and recurrent choking episodes/dry cough. ???Pulmonary and E[facility] evaluation at [facility] included a normal laryngoscopy and exhaled nitric oxide test.??? Methacholine challenge test was negative.??? Trial of prednisone August 2022 did not improve her cough. She was first seen here on 09/27/2022, when she was hoping that the cough would go away.? I prescribed AirDuo digihaler /14, 2 puffs BID, and continue fluticasone and salmeterol.?She never filled that but instead she tried Breo (from her brother) x 30 days and Trilogy (also from her brother) x 14 days, followed by a ???generic ellipta??? x 7 days, which did not produce any lasting relief.??? Currently, she still has an occasional dry cough, no sputum production (she was not able to produce a sputum for C S as I requested).??? Summarizing her extensive workup here since last visit: Modified barium swallow on October 26, 2022 ruled out aspiration.??? It showed overall swallowing function grossly normal. ???There was prolonged mastication, slowed lingual motion, piecemeal swallowing.??? Functional.??? Pharyngeal phase showed trace to mild vallecular residue retention but no penetration or aspiration.??? There was brief esophageal retention of pudding bolus, overall swallowing function was normal and likely not associated with chronic cough. Speech recommended regular textures, thin liquids, no need for speech therapy, but GI consult was recommended because of decreased esophageal phase. Sputum C S was not done.??? Full respiratory PCR was negative. Chest CT scan 09/12/2022 showed: ???Small nodular density in the left upper lobe. Other smaller nodular densities are also noted. No evidence of acute cardiopulmonary disease.??? IgG for pertussis was positive, but IgA and IgM were negative consistent with prior infection with pertussis.??? CBC differential including eosinophils, IgE. ESR, KESHAV RAST region 5, pertussis IgG and IgM, QuantiFERON gold TB, were negative.??? KESHAV and ESR were negative She had influenza and pneumonia immunization last visit. ??? PMFSH and allergies and meds reviewed for this visit. Intake Vital Signs 11/21/22 09:55 11/21/22 09:59 Height 5 ft 1 in 5 ft 1 in Weight: 113 lb BMI 21.3 BP 118/81 H Blood Pressure Location Lt brachial Position Sitting Respiration 18 Pulse 56 L Pulse Source Monitor Temp 97.5 F L Temperature Source Temporal Artery Pulse Oximetry (%) 98 Oxygen Delivery Method room air Intake Visit Reasons: 1 M FU Chief Complaint: bronchietisis 15 months Accompanied by: Self Allergies No Known Allergies Allergy (Verified 11/21/22 09:57) Medications ascorbic acid (vitamin C) 100 mg tablet 100 mg PO DAILY 09/27/22 [History Confirmed 11/21/22] cholecalciferol (vitamin D3) 25 mcg (1,000 unit) capsule 25 mcg PO DAILY 09/27/22 [History Confirmed 11/21/22] multivitamin 1 tab PO DAILY 09/27/22 [History Confirmed 11/21/22] PFSH Medical History (Updated 11/21/22 @ 11:[address] Ryan Turcios MD) Adult bronchiectasis BMI 20.0-20.9, adult BMI 21.0-21.9, adult Body mass index [BMI] 21.0-21.9, adult Breast cancer screening Chronic cough Cough Current non-smoker Disorders of magnesium metabolism Encounter for screening for malignant neoplasm of colon Encounter for screening mammogram for breast cancer Encounter for well adult exam with abnormal findings Fatigue Influenza vaccination declined Lung nodule seen on imaging study Menopause Need for prophylactic vaccination and inoculation against influenza Non-smoker Osteopenia Pharyngitis Post-menopausal Screening for hyperlipidemia Sinusitis, acute Vitamin D deficiency, unspecified Social History pets and animals: No history of recent travel: No (adriano 11-23 ) Smoking Status: Never smoker details: occ alchol use caffeine: Yes what type of physical activity do you participate in: other details: light exercise Review of Systems EETM Ear Nose Throat Mouth: No nasal discharge Resp Respiratory: Yes as per HPI, No shortness of breath at rest, No pain with cough, No chest congestion and Yes cough nonproductive, no response to recent inhaler trials with Trilogy and Breo Gastro Gastrointestional: Positive other (no aspiration) Exam Const Constitutional: Positive conversant, in no acute respiratory distress, healthy appearing and good hygiene; Negative dyspenic no cough throughout the visit. Head Head: Yes normocephalic mmm Eyes Eye: Positive clear conjunctiva Nose Nose: Yes external nose normal and Yes no nasal discharge Resp lung sounds: Positive clear to auscultation, good air exchange, normal expiratory time, normal respiratory effort and other; Negative wheezes, wheeze present on forced exhalation, rhonchi, rales or use of accessory muscles No cough during all respiratory maneuvers, including FVC. Cardio Cardiac: Positive regular rate Genitourinary: Positive deferred Musc Musculoskeletal: Positive other grossly normal, good coordination, able to get on/off exam table without difficulty. Skin Pulmonary Skin Exam: Positive intact; Negative rash Neuro Neurologic: Yes no focal neuro deficits, Yes conversant, Yes cooperative, Yes normal cognition, Yes normal concentration and Yes understands questions Psych Appearance: Positive grossly normal Affect: Positive normal affect (pleasant and appropriate, good insight.) Coding Level of Care Code Off vis,est,level 3 Diagnoses Bronchiectasis J47.9 Chronic cough R05.3 Lung nodule seen on imaging study R91.1 Time Spent (min) 45 Comment including at bedside, review of test results, personal review of imaging documentation 11/21/22 1126 <Electronically signed by Ryan Turcios MD> Date Ryan Turcios MD Cosigner Signature: Date (if applicable) CC: Dr. Gisselle Huggins, DO Gisselle Huggins DO Work Phone: Start: 10-26-2022 End: 10-26-2022 Modified Barium Swallow Study Procedure Note: See Note; NOTES: [facility] Speech Pathology [address] [place] [address] Modified Barium Swallow Study MR#: [id number] Acct: [id number] Name: SELENE ARGUETA Rep #: [id number] : 1960 62 From: Karina Munson M.A. [facility]- CLINICAL PHLEBOTOMIST Modified Barium Swallow - Patient Information Study Date: 10/26/22 Study Time: 13:00 Direct Billable Minutes: 40 Total Minutes procedure reportin Diagnosis: bronchiectasis; chronic cough Referring Physician: Ryan Turcios Reason for Referral: Chronic cough, with a small amount of bronchiectasis and scarring of the anterior peripheral right middle lobe. Cough occurred every winter for several years prior to developing a constant and mostly dry cough in June 2021. Referred for MBSS to r/o microaspiration. Medical History: chronic cough Current Diet Ordered: regular/thin Dentition: WNL Mental Status: WNL Respiratory Status: Oxygenating on Room Air - Penetration-Aspiration Scale Penetration-Aspiration Scale: OBJECTIVE ASSESSMENT OF SWALLOW FUNCTION (QUANTITATIVE ??? PER TRIAL): PENETRATION / ASPIRATION SCALE (DAUGHERTY): 1 = does not enter airway 2 = enters airway/above vocal folds/ejected 3 = enters airway/above vocal folds/not ejected 4 = enters airway/contacts vocal folds/ejected 5 = enters airway/contacts vocal folds/not ejected 6 = enters airway/below vocal folds/ejected 7 = enters airway/below vocal folds/not ejected despite effort 8 = enters airway/below vocal folds/no effort VIDEOFLOROSCOPIC SCALE SCORE (DAUGHERTY): Grade I = aspiration of material that has penetrated into the laryngeal vestibule, intact cough reflex Grade II = aspiration < 10 % of the bolus, intact cough reflex Grade III = aspiration of < 10 % of the bolus, reduced cough reflex or aspiration of > 10 % of the bolus, intact cough reflex Grade IV = aspiration of > 10 % of the bolus, reduced cough reflex - Oral Phase Labial Seal: No Labial Escape Tongue Control During Bolus Hold: Cohesive bolus between tongue to palatal seal Bolus Preparation/Mastication: Slow prolonged chewing/mashing with complete recollection Bolus Transport/Lingual Motion: Slowed tongue motion Oral Residue: Residue collection on oral structures - Pharyngeal Phase Initiation of Pharyngeal Swallow: Bolus head at posterior angle of ramus at first hyoid excursion Soft Palate Elevation: No bolus between soft palate and pharyngeal wall Laryngeal Elevation: Comp. Superior move thyroid cart w/comp. apprx arytenoid cart-epig pet Anterior Hyoid Excursion: Partial anterior movement Epiglottic Movement: Complete inversion Laryngeal Vestibule Closure at Height of Swallow: Complete; no air/contrast in laryngeal vestibule Pharyngeal Stripping Wave: Present - complete Pharyngoesophageal Segment Opening: Complete distension and complete duration; no obstruction of flow Tongue Base Retraction: Trace column of contrast between tongue base post. pharyngeal wall Pharyngeal Residue: Trace residue within or on pharyngeal structures - Esophageal Phase Esophageal Clearance: Esophageal retention - Diagnosis/Impression Diagnosis: oropharyngeal swallow is grossly WNL Impression: The oral phase is characterized by: -mildly prolonged mastication w/ slowed lingual motion for A-P bolus transportation -piecemeal deglutition pattern utilized w/ solid texture trial (functional) The pharyngeal phase is characterized by: -mild reduction in anterior hyoid excursion w/ resulting trace-mild vallecular residue retention -complete laryngeal vestibule closure during and after deglutition w/ no penetration or aspiration occurring across all trials assessed The esophageal phase is characterized by: -esophageal retention of pudding bolus noted, would consider further assessment via GI referral Chronic cough does not appear to be related to swallow function. Overall swallow function is grossly WNL. - Recommendations Diet: Regular Textures, Thin Liquids Recommend Repeat Modified Barium Swallow: No Need for Skilled Speech Therapy Services: No Recommended Referrals: GI Consult Education Completed: 1. Described result of evaluation., 2. Pt understands evaluation agrees with goals and treatment plan. - Status Active ST Patient: Active - Contact Information [facility] Speech Therapy:: Karina Munson M.A., CCC-CLINICAL PHLEBOTOMIST [address] [address] [phone] [email or web address] 10/26/22 1330 <Electronically signed by YOU Wolf M.A. C-CLINICAL PHLEBOTOMIST> Date/Time Karina Munson M.A. CCC-CLINICAL PHLEBOTOMIST Co-Signature Required for all Medicare patients Date/Time Co-Signature CC: Gisselle Huggins DO Work Phone: Start: 09-27-2022 End: 09-27-2022 Pulmonary Visit Report Procedure Note: See Note; NOTES: [facility] [place] [address] [place] [address] OFFICE VISIT Date of Service: 09/27/22 MR#: [id number] Acct: [id number] Name: SELENE ARGUETA Rep #: [id number] : 1960 Provider: Dr. Ryan figueroa MD Age/Sex: 62/F Location: [facility] [place].PMW Status: Signed Assessment and Plan Assessment and Plan (1) Chronic cough: Status: Chronic Comment: Chronic cough, with a small amount of bronchiectasis and scarring of the anterior peripheral right middle lobe. Cough occurred every winter for several years prior to developing a constant and mostly dry cough in June 2021. She also has a current aspiration history that needs further evaluation. Extensive work-up has been negative thus far, as has multiple clinical trials of various medications including steroids, Tessalon, omeprazole, and Cepacol. She is annoyed with the cough and would just like it to go away. She is interested in trying an inhaler, like Breo that was successful her brother. -Modified barium swallow with speech therapy, to rule out microaspiration. If found, may need further evaluation for abnormal swallowing in a 62-year-old -Sputum culture and sensitivity. -Respiratory PCR, CBCd to look for eosinophilia, IgE, ESR, KESHAV, RAST region 5, Pertussis IgG and IgM -QuantiFERON gold TB test, (my clinical suspicion of active TB is low) -Pneumonia and influenza vaccinations were given during today's visit -Inhaler training with a trial of Airduo Digihaler 113/14 2 puffs twice daily fluticasone and salmeterol. -Follow-up in 1 month -I like to compare her chest x-ray from 2002, as well as review her 2 CT scans with radiology here. I will call her if the testing above is abnormal If there is no clear cause identified, we will proceed to cystic fibrosis evaluation, esophageal pH testing and consider interstitial lung disease. I am mildly concerned about the subtle, diffuse interstitial pattern on her September 04, 2022 CT scan. (2) Bronchiectasis: Status: Acute Comment: As above Orders: Orders Influenza Immunization Today Z23 - Encounter for immunization Pneumonia Immunization Today J47.9 - Bronchiectasis, uncomplicated, R05.3 - Chronic cough, Z23 - Encounter for immunization Inhaler Training Today R05.3 - Chronic cough Erythrocyte Sed Rate Today J47.9 - Bronchiectasis, uncomplicated, R05.3 - Chronic cough CBC W/Diff, Automated Today J47.9 - Bronchiectasis, uncomplicated, R05.3 - Chronic cough Allergen Resp. Area 5 Today J47.9 - Bronchiectasis, uncomplicated, R05.3 - Chronic cough KESHAV w/ Reflex Mult Confirm Today J47.9 - Bronchiectasis, uncomplicated, R05.3 - Chronic cough Culture, Sputum Today J47.9 - Bronchiectasis, uncomplicated, R05.3 - Chronic cough Swallowing Function w/Video 1 Week J47.9 - Bronchiectasis, uncomplicated, R05.3 - Chronic cough B.PERT B.PARAPERTUSSIS PCR Today J47.9 - Bronchiectasis, uncomplicated, R05.3 - Chronic cough RESPIRATORY PANEL MOLECULAR Today J47.9 - Bronchiectasis, uncomplicated, R05.3 - Chronic cough Immunoglobulin E Today J47.9 - Bronchiectasis, uncomplicated, R05.3 - Chronic cough Quantiferon TB-Gold+ Today J47.9 - Bronchiectasis, uncomplicated, R05.3 - Chronic cough B pertussis AB IgG, M, A Today J47.9 - Bronchiectasis, uncomplicated, R05.3 - Chronic cough Medications: New fluticasone propion-salmeterol 113 mcg-14 mcg/actuation (AirDuo Digihaler) 1 month trial only, 2 office samples provided 2 inhalations inhalation BID 1 ea 0RF chronic cough, bronchiectasis MDD 4 inhalations J47.9 - Bronchiectasis, uncomplicated, R05.3 - Chronic cough Discontinued prednisone Discontinued Reason: Order Completed 20 mg PO BID HPI Cough Details: This pleasant 62-year-old F former [id number] smoker who quit in 1999, patient of Dr. Gisselle Huggins DO, is here for a fourth opinion regarding chronic cough. She has noted seasonal cough every winter for several years.??? She has no known precipitant for that. She developed continuous cough beginning June 2021 after an intake evaluation with a personal service representative.??? She did not exercise during that single visit.??? There was nothing unusual about the environment or the air quality at the gym.??? 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 She has been seen by [facility] [place] Dr. Jennifer Gerard on December 10, 2021 February 21, [address] Armando Guillen at [facility] ENT on August 18, 2022.??? She had normal exhaled nitric oxide testing 04/13 and 12/10/2021 at [facility], ENT evaluation including laryngoscopy by Dr. Vidal Stoll of [facility] showing normal pharynx, vocal cords with no polyps or vocal cord motion abnormalities. Interestingly, she has had multiple episodes of severe aspiration and choking, including once in a restaurant with her daughter when she required a Heimlich maneuver.??? She has a severe choking episode about once a year, and has many small episodes intermittently that made her learn to sit up and chew carefully and swallow carefully whenever she eats.??? This may explain some of the right lower lobe abnormalities.??? She denied prior swallowing studies. She is currently not on any bronchopulmonary hygiene for bronchiectasis. CTA chest 08/26/2021 at [facility] was normal except for mild right middle lobe scarring/atelectasis medially, and with no pulmonary embolism.??? Pulmonary function testing at [facility] was also reviewed and showed no airway obstruction.??? Methacholine challenge testing was negative. CT scan of the chest 09/12/2022 showed right middle lobe anterior mild scarring and anterior right lower lobe bronchiectatic change. This was personally reviewed.??? She has had trials of Tessalon, omeprazole, Mucinex, dextromethorphan polistirex (Delsym), vitamin D3, vitamin C, multivitamins, Cepacol, none of which have helped the cough.??? She has not had boosters of childhood vaccinations including pertussis.??? She thinks she may have a chronically positive PPD when she lived in [place], although she has no knowledge of tuberculosis exposure.??? She has had a trial of oral prednisone August 18, 20 milligrams daily x7 days, which made no difference in her symptoms.??? Her brother, who also has bronchiectasis, started Breo which helped him.??? She is interested in trying an inhaler like that. My review of records did not identify prior evaluation of possible pertussis, sputum culture, respiratory PCR, allergy testing, IgE, eosinophil count, sinus imaging, or collagen vascular disease.??? I did not identify prior trials of antibiotics for her episode of bronchitis August 2021.??? She does produce occasional yellow-green sputum, no hemoptysis.??? She deferred surgical option of laryngeal nerve block, and may have tried acupuncture. Past pulmonary history included pneumonia in early November 2001 which she contracted during her mother's 60th birthday green party with many smokers in the room.??? She was not treated with antibiotics or steroid, recovered spontaneously was not hospitalized.??? She has no passive smoke exposure.??? She denies history of DVT, pulmonary embolism, or family history of that.??? She denies chest trauma rib fractures pneumothorax polio and does not think she ever had COVID.??? She has had 2 Moderna vaccines and has never had a flu shot.??? Never had influenza.??? She denies prior pertussis, denies interstitial lung disease.??? She did get her primary childhood immunizations but is not listed. Her travel history she lived in the [place] between and and again in [id number].??? 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 However her cough preceded that job.??? There is no exposure to asbestos, dust or fumes in either her home or the buildings that she worked in.??? All of her workplaces have been fairly new buildings, and her home was completely renovated when she bought it 11 years ago with no significant changes in decorations or renovations since her chronic cough began.??? She has lived with her father of 84 years for 4 years and her partner 14 years.??? Her home has gas heat.??? No new pets, except for a dog that she obtained in March 2022.??? She has no allergies to animals that she knows of.??? No prior testing for allergies. Past medical, surgical, allergies, medications, family and social histories reviewed.??? She has never vaped, used marijuana, used drugs, snuff, and has no hobbies or other activities with exposure to respiratory irritants. Review of 10 systems is negative except as above. 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 was seen urgent care this weekend covid and influenza negative and given prednisone 40mg BID zpak as prescribed x5 days and is not taking is scheduled to pneumovax and influenza 09/28/2022 Intake Vital Signs 04/06/21 16:26 09/27/22 11:20 09/27/22 11:27 Height 5 ft 1 in 5 ft 1 in 5 ft 1 in Weight: 111 lb BMI 20.9 BP 120/72 Blood Pressure Location Rt brachial Position Sitting Respiration 18 Pulse 68 Pulse Source Monitor Temp 97.4 F L Temperature Source Temporal Artery Pulse Oximetry (%) 97 Oxygen Delivery Method room air Intake Visit Reasons: Cough Chief Complaint: bronchietisis 15 months Icu Rn Required: No DME Vendor: n/a Accompanied by: Self Is patient in pain?: No Allergies No Known Allergies Allergy (Verified 09/27/22 11:37) Medications ascorbic acid (vitamin C) 100 mg tablet 100 mg PO DAILY 09/27/22 [History Confirmed 09/27/22] cholecalciferol (vitamin D3) 25 mcg (1,000 unit) capsule 25 mcg PO DAILY 09/27/22 [History Confirmed 09/27/22] fluticasone 113mcg-salmeterol 14mcg/actuation breath act,powder sensor (AirDuo Digihaler) 2 inh inhalation BID chronic cough, bronchiectasis #1 ea 09/27/22 [Rx Confirmed 09/27/22] multivitamin 1 tab PO DAILY 09/27/22 [History Confirmed 09/27/22] PFS Medical History (Updated 09/27/22 @ 15:[address] Ryan Turcios MD) Chronic cough Exam Const Well-developed pleasant slender, well dressed woman in no acute distress.??? She did cough frequently, nonproductively, during the visit. HEENT left tympanic membrane obscured by wax, right normal.??? Extraocular is intact sclera anicteric and without injection.??? Nares were grossly normal with good patency.??? Mouth is normal with good dentition, no erythema or thrush, Mallampati 1 airway. Neck is supple with no JVD thyromegaly mass or adenopathy. Chest: Clear bilaterally with no wheezes rales or rhonchi crackles rub.??? Symmetrical, breath sounds equal bilaterally, good diaphragmatic excursion, unlabored respiration.??? No wheezing heard during forced vital capacity maneuver or coughing.??? Small amount of sputum was easily cleared with cough.??? Short paroxysm induced by deep breathing. Heart: Normal S1-S2 with no murmurs rubs or gallops Abdomen is soft, nondistended Extremities have no clubbing cyanosis or edema, pulses are 2+ Neurologic exam is grossly nonfocal, alert and oriented, articulate, good comprehension and insight. Skin is warm and dry, no rash on limited exam. Immunizations Flucelvax Quad 8990-6721 (PF) Performing Provider: Ryan Turcios MD Administered by: Radha Robin on 09/27/22 14:43 Dose Route Admin Location Lot Number Expiration Date [facility] Manufactu rer 0.5 mL IM Left Deltoid [id number] 03/22/23 80736-480-69 [employer] VIS Given Date VIS Provided VIS Publication Date 09/27/22 Single Vaccine 21 Eligibility Eligibility Date Funding Source Not Applicable Pneumovax-23 Performing Provider: Ryan Turcios MD Administered by: Radha Robin on 09/27/22 14:45 Dose Route Admin Location Lot Number Expiration Date NDC Manufactu rer 0.5 mL IM Right Deltoid [id number] 07/15/23 7442-5097-56 [employer] VIS Given Date VIS Provided VIS Publication Date 06/01/15 Single Vaccine 19 Eligibility Eligibility Date Funding Source Not Applicable Coding Level of Care Code Off vis,new,level 5 Diagnoses Chronic cough R05.3 Bronchiectasis J47.9 Time Spent (min) 90 09/27/22 1543 <Electronically signed by Ryan Turcios MD> Date Ryan Turcios MD Cosigner Signature: Date (if applicable) CC: DO Gisselle Haile DO Work Phone: Start: 09-12-2022 End: 09-19-2022 Chest WITH Contrast Procedure Note: See Note; NOTES: [facility] Services [address] [place] [address] Chest WITH Contrast MR#: [id number] Acct: [id number] Name: SELENE ARGUETA Rep #: [id number] : 1960 F 62 From: Alfredito De Jesus DO PCP: Dr. Gisselle Huggins DO Status: REG CLI Study: Chest WITH Contrast Date of Exam: 09/12/22 Exam# [id number] Ordering Dr: Gisselle Huggins DO INDICATION: Chronic cough for 14 months. Previous smoker (quit 22 years ago). EXAMINATION: CT CHEST WITH CONTRAST - CT Chest W/ Contrast Injection TECHNIQUE: Helically acquired images were obtained of the chest following IV contrast. A radiation dose optimization technique was used for this scan. IV Contrast dosage and agent: 100 mL of Isovue-300 COMPARISON: CTA of the chest, August 26, 2021. FINDINGS: LUNGS, PLEURA AND LARGE AIRWAYS: Lungs are well-expanded. There is minimal pleural thickening in the lung apices. There is a small nodular density in the left upper lobe along the horizontal fissure measuring approximately 6 mm in diameter (image 60, series 4). At the same level there is a smaller nodular density measuring 3 mm slightly more lateral. Minimal dependent changes in the anterior lingula. Lungs are otherwise clear. No focal mass or infiltrate No pleural effusion. THYROID: No thyroid lesions. HEART AND PERICARDIUM: Heart size is normal. No pericardial effusion. Minimal coronary artery calcifications. VESSELS: Thoracic aorta is not dilated. No aortic dissection. No obvious central pulmonary embolism although this study was not performed with the pulmonary embolism protocol. MEDIASTINUM AND GIOVANNI: No mediastinal or hilar adenopathy. Esophagus is unremarkable. No hiatal hernia. UPPER ABDOMEN: No acute pathology. BONES: No suspicious lytic or blastic abnormality. CT/Chest WITH Contrast IMPRESSION: Small nodular density in the left upper lobe. The area of consolidation.. Other smaller nodular densities are also noted. No evidence of acute cardiopulmonary disease. Electronically Signed: Alfredito De Jesus DO at 17:54 EST Reading Location ID and State: [address] [place] [address] Tel [phone], Service support , CC: Dr. Gisselle Huggins DO Sequins Spooler: Signed Gisselle Huggins DO Work Phone: Start: 08-26-2022 End: 08-26-2022 SCRN MAMM (CAD)W/YAHAIRA BILAT Procedure Note: See Note; NOTES: [facility] Imaging Services [address] [place] [address] SCRN MAMM (CAD)W/YAHAIRA BILAT MR#: [id number] Acct: [id number] Name: SELENE ARGUETA Rep #: [id number] : 1960 F 62 From: Willy wynn MD PCP: Dr. Gisselle Huggins DO Status: REG CLI Study: SCRN MAMM (CAD)W/YAHAIRA BILAT Date of Exam: 08/16 11/06 Exam# [id number] Ordering Dr: Gisselle Huggins DO MAMMOGRAPHY - BILATERAL SCREENING REASON FOR EXAM: Female, 62 years old. Routine annual screening examination. PERTINENT HISTORY: Mother with breast cancer. Aunts with breast cancer. TECHNIQUE: Digital bilateral breast yahaira (3D mammographic acquisition) in the CC and MLO projections. 2-D mediolateral oblique (MLO) and craniocaudad (CC) views of both breasts were obtained. CAD: Full Field Digital Mammography with Computer Added Detection was performed. COMPARISON: Comparison is made with prior study dated 04/06/2021 and 07/17/2008. FINDINGS: Breast Composition: The breasts are heterogeneously dense, which may obscure small masses. There are no dominant masses or suspicious calcifications. Stable small benign appearing bilateral axillary nodes. No other significant abnormalities are identified. There has been no significant change since the prior study. BI/SCRN MAMM (CAD)W/YAHAIRA BILAT IMPRESSION: Stable bilateral screening mammogram. Yearly follow-up mammogram recommended. (A) ASSESSMENT CATEGORY: BIRADS Category 2: Benign. A letter regarding these results will be sent to the patient by the facility within 30 days. Approximately 10% of breast cancers are not detected by mammography. A normal mammogram should not delay biopsy of a clinically suspicious abnormality. [id number] Electronically Signed: Willy Wheat MD at 14:51 EST , CC: Dr. Gisselle Huggins DO Sequins Spooler: Signed Gisselle Huggins DO Work Phone: Start: 04-13-2022 Nitric oxide gas determination Luis Hardwick MD Work Phone: Start: 04-13-2022 Brncdilat rspse spmtry pre&post-brncdilat admn Luis Hardwick MD Work Phone: Start: 12-22-2021 End: 12-22-2021 Bronchoprovocation Challenge Comments: See Note; NOTES: [facility]/Neurology [address] [place] [address] MR#: [id number] Acct: [id number] Name: SELENE ARGUETA Rep #: [id number] : 1960 61 From: Maciel Gerard DO Referring Dr: Status: REG [facility] Location: [facility] Date: 12/22/21 Sex: F C Bronchoprovocation Challenge Bronchoprovocation Challenge Bronchoprovocation Challenge: INTRODUCTION: The patient is a 61-year-old female who presents for a methacholine challenge secondary to a diagnosis of chronic cough. Respiratory therapy reported good patient effort. Contraindications for testing was reviewed with the patient. INTERPRETATION: Initial spirometry did not show any large airways obstructive ventilatory defect and preserved airflows throughout. The patient was then given progressively increasing doses of methacholine in a standardized fashion. At no point during testing did the patient's FEV1 drop to the threshold criteria to be considered a positive test. IMPRESSION: Negative methacholine challenge. 12/22/21 1301 <Electronically signed by Maciel Gerard DO> Date Maciel Gerard DO CC: Date Dictated: 12/22/21 1259 Date Transcribed: 12/22/21 1259 Sequins Spooler: DB Signed Gisselle Huggins DO Work Phone: Start: 08-26-2021 End: 08-26-2021 CTA Chest W/WO Contrast Comments: See Note; NOTES: [facility] Imaging Services [address] [place] [address] CTA Chest W/WO Contrast MR#: [id number] Acct: [id number] Name: SELENE ARGUETA Rep #: [id number] : 1960 F 61 From: Otis Hicks DO PCP: Dr. Gisselle Huggins DO Status: REG CLI Study: CTA Chest W/WO Contrast Date of Exam: 08/26/21 Exam# [id number] Ordering Dr: Gisselle Huggins DO STUDY: CTA CHEST REASON FOR EXAM: Female, 61 years old. PLEURITIC CHEST PAIN -- PE SUSPECTED,LOW/INTERMEDIATE PROB,NEG DDIMER RADIATION DOSAGE (If Supplied By Facility): CTDIvol = ( 4.27 ) mGy, DLP = ( 139.89 ) mGycm TECHNIQUE: The examination was performed with the intravenous administration of IV 75mL Isovue-370. Post-processing of the angiographic images was performed, with multiplanar reformation and 3D reconstruction. Individualized dose optimization techniques were used for this CT. COMPARISON: None. FINDINGS: Normal enhancement of the main pulmonary artery and right and left pulmonary arteries. Normal enhancement of the bilateral peripheral pulmonary arteries. There is no demonstrated pulmonary embolism. Normal thoracic aorta and visualized great vessels. There is no demonstrated aortic dissection. Normal heart and pericardium. Normal mediastinum. Normal hilar regions. Normal visualized trachea and bronchi. The lungs are well expanded. Mild right middle lobe scarring/atelectasis medially. Normal pleura. Normal chest wall structures. Normal osseous structures. Normal visualized upper abdomen. CT/CTA Chest W/WO Contrast IMPRESSION: No demonstrated pulmonary embolism or arterial dissection. Electronically Signed: Otis Hicks DO at 16:22 EST Tel [phone], Service support , CC: Dr. Gisselle Huggins DO Sequins Spooler: Signed Gisselle Huggins DO Work Phone: Start: 07-26-2021 End: 07-27-2021 Chest PA and Lateral Comments: See Note; NOTES: [facility] Imaging Services [address] [place] [address] Chest PA and Lateral MR#: [id number] Acct: [id number] Name: SELENE ARGUETA Rep #: [id number] : 1960 F 60 From: Bella cordero MD PCP: Dr. Gisselle Huggins DO Status: REG CLI Study: Chest PA and Lateral Date of Exam: 07/26/21 Exam# [id number] Ordering Dr: Gisselle Huggins DO HISTORY: COUGH. TECHNIQUE: XR Chest 2 Views. # of images incl. paperwork: 2. COMPARISON: None. FINDINGS: CARDIOMEDIASTINAL STRUCTURES: Cardiac silhouette not enlarged. Mediastinal contour unremarkable. LUNGS: Radiographically clear. PLEURA: No pleural effusion or pneumothorax. OSSEOUS STRUCTURES: Unremarkable. RAD/Chest PA and Lateral IMPRESSION: No radiographic evidence of acute cardiopulmonary disease. at 1522 Reported and signed by: Bella Soares MD Electronically Signed: Bella Soares MD at 15:21 EDT Tel , Service support , CC: Dr. Gisselle Huggins DO Sequins Spooler: Signed Gisselle Huggins DO Work Phone: Start: 04-06-2021 End: 04-13-2021 Dexa Bone Density Study Comments: See Note; NOTES: [facility] Imaging Services [address] [place] [address] Dexa Bone Density Study MR#: [id number] Acct: [id number] Name: SELENE ARGUETA Rep #: [id number] : 1960 F 60 From: Willy wynn MD PCP: Dr. Gisselle Huggins DO Status: REG CLI Study: Dexa Bone Density Study Date of Exam: 04/06/21 Exam# [id number] Ordering Dr: Gisselle Huggins DO STUDY: DUAL ENERGY X-RAY ABSORPTIOMETRY / DXA REASON FOR EXAM: Female, 60 years old. Z780. Patient is postmenopausal. Loss of height. TECHNIQUE: Bone Mineral Density (BMD) measurements of lumbar spine and bilateral hips were obtained. COMPARISON: Comparison is made with prior study 07/17/2018. FINDINGS: Lumbar Spine (L1-L4): g/cm2 (0.945) / T-score (-2.0) / Z-score (-0.7) Findings are suggestive of osteopenia with a moderate fracture risk. Left Femur Total: g/cm2 (0.845) / T-score (-1.3) / Z-score (-0.3) Left Femoral Neck: g/cm2 (0.808) / T-score (-1.7) / Z-score (-0.4) Right Femur Total: g/cm2 (0.817) / T-score (-1.5) / Z-score (-0.6) Right Femoral Neck: g/cm2 (0.748) / T-score (-2.1) / Z-score (-0.8) The T-Scores on the most recent prior examination were: Lumbar Spine (L1-L4): There has been worsening of bone density since the previous examination. Left Femur Total: which represents a worsening of 7.7%. Right Femur Total: which represents a worsening of 5.3%. BD/Dexa Bone Density Study IMPRESSION: The patient is considered osteopenic as outlined below according to World Aram Organization (WHO) criteria with a moderate fracture risk. There has been worsening of bone density since the previous examination. Reference Information: The T-score is the number of standard deviations above or below the standard which is normal for young adults at their peak bone mineral density. The World Health Organization (WHO) interprets the T-scores as follows: Above -1 Normal bone density Between -1 and -2.5 Osteopenia Equal to / or below -2.5 Osteoporosis As a practical clinical guideline, osteopenia may be graded as follows: Mild -1 through -1.5 Moderate -1.6 through -2.0 Severe -2.1 through -2.4 The Z-score is the number of standard deviations above or below age-matched controls. A Z-score of less than -1.5 would be considered abnormal. References: 1. NIH Osteoporosis and Related Bone Diseases www osteo.org 2. International Society for Clinical Densitometry www iscd.org 3. National Osteoporosis Foundation www nof.org Electronically Signed: Willy Wheat MD at 8:31 EDT , Service support , CC: Dr. Gisselle Huggins DO Sequins Spooler: Signed Gisselle Huggins DO Work Phone: Start: 04-06-2021 End: 04-08-2021 SCRN MAMM (CAD)W/YAHAIRA BILAT Comments: See Note; NOTES: [facility] Imaging Services [address] [place] [address] SCRN MAMM (CAD)W/YAHAIRA BILAT MR#: [id number] Acct: [id number] Name: SELENE ARGUETA Rep #: [id number] : 1960 F 60 From: Colten Brice MD PCP: Dr. Gisselle Huggins, Status: REG CLI Study: SCRN MAMM (CAD)W/YAHAIRA BILAT Date of Exam: 03/17 12/06 Exam# [id number] Ordering Dr: Gisselle Huggins DO MAMMOGRAPHY - BILATERAL SCREENING 3-D TOMOSYNTHESIS REASON FOR EXAM: Female, 60 years old. SCREENING PERTINENT HISTORY: No significant family history. TECHNIQUE: 2-D mammograms and 3-D Tomosynthesis of the breast (s) were performed. CAD was performed. COMPARISON: 07/17/2018. FINDINGS: Again noted heterogeneous prominence of the fibroglandular tissue without evidence of any spiculated lesion, microcalcifications, skin thickening or nipple retraction. No significant lymph nodes noted in the axillary areas on either side. The previously seen calcifications on the left are no longer detected in today''s examination BI/SCRN MAMM (CAD)W/YAHAIRA BILAT IMPRESSION: No mammographic signs of malignancy. Routine yearly mammograms recommended. ASSESSMENT CATEGORY: BIRADS Category 1: Negative. A letter regarding these results will be sent to the patient by the facility within 30 days. FOLLOW UP RECOMMENDATION: Yearly follow up mammogram recommended. (A) Approximately 10% of breast cancers are not detected by mammography. A normal mammogram should not delay biopsy of a clinically suspicious abnormality. Electronically Signed: Colten Brice, at 12:35 EDT Tel , Service support , CC: Dr. Gisselle Huggins DO Sequins Spooler: Signed Gisselle Huggins DO Work Phone: Start: 07-17-2018 End: 07-17-2018 Dexa Bone Density Study Comments: See Note; NOTES: [facility] Imaging Services [address] [place] [address] Dexa Bone Density Study MR#: [id number] Acct: [id number] Name: SELENE ARGUETA Rep #: [id number] : 1960 F 57 From: Willy Wheat MD PCP: Gisselle Huggins DO Status: [facility] Study: Dexa Bone Density Study Date of Exam: 07/17/18 Exam# [id number] Ordering Dr: Gisselle Huggins DO STUDY: DUAL ENERGY X-RAY ABSORPTIOMETRY / DXA REASON FOR EXAM: Female, 57 years old. The patient is postmenopausal. Loss of height. TECHNIQUE: Bone Mineral Density (BMD) measurements of lumbar spine and bilateral hips were obtained. COMPARISON: Comparison is made with prior study dated July 05, 2016. FINDINGS: Lumbar Spine (L1-L4): g/cm2 (0.990) / T-score (-1.5) / Z-score (-0.5) Findings are suggestive of osteopenia with a moderate fracture risk. Left Femur Total: g/cm2 (0.915) / T-score (-0.7) / Z-score (0.1) Left Femoral Neck: g/cm2 (0.883) / T-score (-1.1) / Z-score (0.0) Right Femur Total: g/cm2 (0.863) / T-score (-1.1) / Z-score (-0.3) Right Femoral Neck: g/cm2 (0.839) / T-score (-1.4) / Z-score (-0.3) The T-Scores on the most recent prior examination were: Lumbar Spine (L1-L4): There has been worsening of bone density since the previous examination. Left Femur Total: which represents a worsening of 8.1%. Right Femur Total: which represents a worsening of 5.7%. BD/Dexa Bone Density Study IMPRESSION: The patient is considered osteopenic as outlined below according to World Aram Organization (WHO) criteria with a moderate fracture risk. There has been worsening of bone density since the previous examination. Reference Information: The T-score is the number of standard deviations above or below the standard which is normal for young adults at their peak bone mineral density. The World Health Organization (WHO) interprets the T-scores as follows: Above -1 Normal bone density Between -1 and -2.5 Osteopenia Equal to / or below -2.5 Osteoporosis As a practical clinical guideline, osteopenia may be graded as follows: Mild -1 through -1.5 Moderate -1.6 through -2.0 Severe -2.1 through -2.4 The Z-score is the number of standard deviations above or below age-matched controls. A Z-score of less than -1.5 would be considered abnormal. References: 1. NIH Osteoporosis and Related Bone Diseases http://www.osteo.org 2. International Society for Clinical Densitometry http://www.iscd.org 3. National Osteoporosis Foundation http://www.nof.org Electronically Signed: Willy Wheat MD at 13:56 EDT Tel [phone], Service support , CC: Gisselle Huggins DO Sequins Spooler: Signed Gisselle Huggins Work Phone: Start: 07-17-2018 End: 07-17-2018 SCREENING MAMM (CAD), BILAT Comments: See Note; NOTES: [facility] Imaging Services [address] [place] [address] SCREENING MAMM (CAD), BILAT MR#: [id number] Acct: [id number] Name: SELENE ARGUETA Rep #: [id number] : 1960 F 57 From: Willy Wheat MD PCP: Gisselle Huggins DO Status: REG CLI Study: SCREENING MAMM (CAD), BILAT Date of Exam: 07/17/18 Exam# [id number] Ordering Dr: Gisselle Huggins DO MAMMOGRAPHY - BILATERAL SCREENING REASON FOR EXAM: Female, 57 years old. Routine annual screening examination. PERTINENT HISTORY: Aunt with breast cancer. TECHNIQUE: Digital bilateral breast yahaira (3D mammographic acquisition) in the CC and MLO projections. 2-D mediolateral oblique (MLO) and craniocaudad (CC) views of both breasts were obtained. CAD: Full Field Digital Mammography with Computer Added Detection was performed. COMPARISON: Comparison is made with prior examination of July 05, 2016 and April 12, 2012. FINDINGS: Breast Composition: The breasts are heterogeneously dense, which may obscure small masses. There are no dominant masses or suspicious calcifications. No other significant abnormalities are identified. There has been no significant change since the prior study. BI/SCREENING MAMM (CAD), BILAT IMPRESSION: Stable bilateral screening mammogram. Yearly follow-up mammogram recommended. (A) ASSESSMENT CATEGORY: BIRADS Category 1: Negative. A letter regarding these results will be sent to the patient by the facility within 30 days. Approximately 10% of breast cancers are not detected by mammography. A normal mammogram should not delay biopsy of a clinically suspicious abnormality. [id number] Electronically Signed: Willy Wheat MD at 9:36 EDT Tel [phone], Service support , CC: Gisselle Huggins DO Sequins Spooler: Signed Gisselle Huggins Work Phone: Start: 07-05-2016 End: 07-05-2016 Bilat Scrn Digital AND CAD Comments: See Note; NOTES: [facility] Imaging Services [address] [place] [address] Verdana 4d Bilat Scrn Digital AND CAD MR#: [id number] Acct: [id number] Name: SELENE ARGUETA Rep #: [id number] : 1960 F 55 From: Willy Wheat MD PCP: Gisselle Huggins DO Status: REG CLI Study: Bilat Scrn Digital AND CAD Date of Exam: 07/05/16 Exam# [id number] Ordering Dr: Gisselle Huggins DO MAMMOGRAPHY - BILATERAL SCREENING REASON FOR EXAM: Female, 55 years old. Routine annual screening examination. PERTINENT HISTORY: Aunt with breast cancer. TECHNIQUE: Digital bilateral breast yahaira (3D mammographic acquisition) in the CC and MLO projections. 2-D mediolateral oblique (MLO) and craniocaudad (CC) views of both breasts were obtained. CAD: Full Field Digital Mammography with Computer Added Detection was performed. COMPARISON: Comparison is made with prior study dated April 12, 2012. FINDINGS: Breast Composition: The breasts are heterogeneously dense, which may obscure small masses. There are no dominant masses or suspicious calcifications. No other significant abnormalities are identified. There has been no significant change since the prior study. HPBI/Bilat Scrn Digital AND CAD IMPRESSION: Stable bilateral screening mammogram. Yearly follow-up mammogram recommended. (A) ASSESSMENT CATEGORY: BIRADS Category 1: Negative. A letter regarding these results will be sent to the patient by the facility within 30 days. Approximately 10% of breast cancers are not detected by mammography. A normal mammogram should not delay biopsy of a clinically suspicious abnormality. [id number] Electronically Signed: Willy Wheat MD at 12:27 EDT Tel [phone], Service support [phone], CC: Gisselle Huggins DO Sequins Spooler: Signed Gisselle Huggins Work Phone: Start: 07-05-2016 End: 07-05-2016 Dexa Bone Density Study (HP) Comments: See Note; NOTES: [facility] Imaging Services [address] [place] [address] Verdana 4d Dexa Bone Density Study (HP) MR#: [id number] Acct: [id number] Name: SELENE ARGUETA Rep #: [id number] : 1960 F 55 From: Willy Wheat MD PCP: Gisselle Huggins DO Status: [facility] CLI Study: Dexa Bone Density Study (HP) Date of Exam: 07/05/16 Exam# [id number] Ordering Dr: Gisselle Huggins DO STUDY: DUAL ENERGY X-RAY ABSORPTIOMETRY / DXA REASON FOR EXAM: Female, 55 years old. Early menopause. Loss of height. TECHNIQUE: Bone Mineral Density (BMD) measurements of lumbar spine and bilateral hips were obtained. COMPARISON: None. FINDINGS: Lumbar Spine (L1-L4): g/cm2 (1.011) / T-score (-1.4) / Z-score (-0.5) Findings are suggestive of osteopenia with a moderate fracture risk. Left Femur Total: g/cm2 (0.996) / T-score (-0.1) / Z-score (0.6) Left Femoral Neck: g/cm2 (1.001) / T-score (-0.3) / Z-score (0.8) Right Femur Total: g/cm2 (0.915) / T-score (-0.7) / Z-score (0.0) Right Femoral Neck: g/cm2 (0.891) / T-score (-1.1) / Z-score (0.0) HPBD/Dexa Bone Density Study (HP) IMPRESSION: The patient is considered osteopenic as outlined below according to World Aram Organization (WHO) criteria with a moderate fracture risk. Reference Information: The T-score is the number of standard deviations above or below the standard which is normal for young adults at their peak bone mineral density. The World Health Organization (WHO) interprets the T-scores as follows: Above -1 Normal bone density Between -1 and -2.5 Osteopenia Equal to / or below -2.5 Osteoporosis As a practical clinical guideline, osteopenia may be graded as follows: Mild -1 through -1.5 Moderate -1.6 through -2.0 Severe -2.1 through -2.4 The Z-score is the number of standard deviations above or below age-matched controls. A Z-score of less than -1.5 would be considered abnormal. References: 1. NIH Osteoporosis and Related Bone Diseases http://www.osteo.org 2. International Society for Clinical Densitometry http://www.iscd.org 3. National Osteoporosis Foundation http://www.nof.org Electronically Signed: Willy Wheat MD at 10:58 EDT Tel [phone], Service support [phone], CC: Gisselle Huggins DO Sequins Spooler: Signed Gisselle Huggins Work Phone: Start: 05-10-2010 Adult depression screening assessment Jennifer Gerard MD Work Phone: Plan of Treatment Date Care Activity Detail Author Start: 07-31-2023 Procedure Education Eprescribed prescriptions (G8553) [facility] Work Phone: Start: 07-31-2023 Antibody borrelia burgdorferi confirmatory tst Lyme Disease,Serum, Western Blot (30980) [facility]; [facility] Work Phone: Start: 07-31-2023 Cyanocobalamin vitamin b-12 VITAMIN B-12 (CYANOCOBALAMIN) (59629) [facility]; [facility] Work Phone: Start: 07-31-2023 Assay of thyroid stimulating hormone tsh TSH (04669) [facility]; [facility] Work Phone: Start: 07-31-2023 Sedimentation rate rbc non-automated SED RATE ERYTHROCYTE (46504) [facility]; [facility] Work Phone: Start: 07-31-2023 Rheumatoid factor quantitative RHEUMATOID FACTOR-QUANT (35273) [facility]; [facility] Work Phone: Start: 07-31-2023 C-reactive protein C-REACTIVE PROTEIN (96469) [facility]; [facility] Work Phone: Start: 07-31-2023 Comprehensive metabolic panel METABOLIC PANEL, COMPREHENSIVE (43081) [facility]; [facility] Work Phone: Start: 07-31-2023 Blood count complete automated CBC (AUTO) (79374) [facility]; [facility] Work Phone: Start: 07-31-2023 Antinuclear antibodies keshav KESHAV (ANTINUCLEAR ANTIBODY) (31721) [facility]; [facility] Work Phone: Start: 07-31-2023 25 hydroxy includes fractions if performed CALCIFIDIOL (41731) VIT D 25 [facility]; [facility] Work Phone: Start: 07-31-2023 Lipid panel LIPID PANEL (21530) [facility]; [facility] Work Phone: Start: 09-21-2022 Procedure Education Eprescribed prescriptions (G8553) [facility]; [facility] Work Phone: Start: 09-21-2022 Provider Instructions for Treatment [facility]; [facility] Work Phone: Start: 09-15-2022 Procedure Education Eprescribed prescriptions (G8553) [facility]; [facility] Work Phone: Start: 09-15-2022 Provider Instructions for Treatment Reviewed Diagnostic Tests [facility]; [facility] Work Phone: Start: 08-01-2022 Glucose quantitative blood xcpt reagent strip GLUCOSE (25511) [facility]; [facility] Work Phone: Start: 08-01-2022 Lipid panel LIPID PANEL (20909) [facility]; [facility] Work Phone: Start: 08-01-2022 Procedure Education Eprescribed prescriptions (G8553) [facility]; [facility] Work Phone: Start: 06-16-2022 Influenza vaccination [facility] Start: 04-13-2022 End: 05-12-2023 SPIROMETRY WITH DILATOR IF OBSTRUCTED [facility] Work Phone: Immunizations Immunization Date Immunization Notes Care Provider Jocelynn telles 01-14-2021 COVID-19 (Moderna) Gisselle Huggins DO Work Phone: [facility] Work Phone: 12-14-2020 COVID-19 (Moderna) Gisselle Huggins DO Work Phone: [facility] Work Phone: Payers Date Payer Category Payer Private Health Insurance [employer] OAP [id number] 2021-Present [phone] [address] [place] [address] Open Access [id number] 2021 Private Health Insurance [id number] 2021 Private Health Insurance [id number] 2020 Private Health Insurance [id number] Private Health Insurance [id number] 1960 Unknown [id number] 1960 Unknown [id number] 1960 Unknown [id number] 1960 Unknown [id number] Private Health Insurance [id number] Unknown Unknown [id number] Unknown [id number] Social History Date Type Detail Facility Start: 12-10-2021 End: 08-18-2022 Alcohol Use [facility] Work Phone: Clinical Notes 04-13-2022 to 11-08-2023 Patient InstructionsEmtereso Cuellar CCC-EDDIE - 08/18/2022 9:19 AM EDTTelephone Encounter - Toshia Roque Ma - 07/26/2022 7:49 AM EDTPatient Susan Chemo DO Lucinda - 04/13/2022 2:24 PM EDT Note Date & Type Note Facility 11-08-2023 Note HNO ID: [id number] Author: JONAH GARIBAY MD Service: ? Author Type: Physician Type: Progress Notes Filed: 11/08/2023 22:40 Note Text: [facility] Date: November 08, 2023 Patient Name: Selene Argueta Ms Argueta self referred to the [facility] for memory concerns. Reason for Evaluation/Chief complaint: memory concerns Accompanied by: Self -------- SUBJECTIVE: HPI: Ms. Selene Argueta is a 63 year old right handed female who presents to the [facility] for an initial evaluation. Patient has been seen and referred by self has a pertinent PMHx significant for bronchiectasis and prior smoking hx. Symptoms Cognition Memory problems include forgetting events. Short-term memory impairment, long-term memory impairment, impaired learning ability, rapid forgetting and repeating statements and questions are not present. Difficulty coming up with common words contribute to communication problems. There is no impaired reasoning or judgment. There are no major fluctuations in cognitive status. In daily life, she needs no assistance. Behavior Mood is described as anxious. Personality is the same. She is sleeping normally. Appetite is the same as usual. Physical/Motor The patient has had normal balance. Gait is normal. She has no motor abnormalities. There is no incontinence. Symptoms started 13 ago, difficulty with coming up with words at work, very stressful. Unclear duration. 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 Left shortly after with improvement. Given symptoms of transient word finding difficulty, underwent EEG by an outside neurologist with concern for R sharp transient discharges in her right temporal lobe. Was recommended to start on levetiracetam and topiramate at that time but did not do. Was evaluated here by epilepsy for these events with 2 brain MRIs without definitive structural features to suggest an underlying possibly epilepsy syndrome. Repeat EEG done here with plan to possibly trial ASM if symptoms were to reoccur and compare EEGs to see if any changes. 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 No obvious issues with word finding, but sometimes coworkers noted some issues with remembering recent events/details. Has been under some stress taking care of her father with Parkinson's disease (has been living with her since 2018), and diagnosed in 2019. No obvious parkinsonian features with herself or signs of memory impairement in her father. 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 Has additionally had boderline low B12 reportedly in the 200's now on supplementation. Neuropsychiatric symptoms Memory: Some issues with recalling some half-way memories Language: N/A Executive functioning: N/A Change in personality: N/A Socially inappropriate behavior: N/A Perseverative behaviors: N/A Change in eating habits:N/A Physical changes: N/A Depressive symptoms: N/A Anxiety symptoms: Yes Apathy: N/A Hallucinations/Delusions: N/A Other symptoms Parkinsonism: N/A Weakness N/A Sleep: Sleeps 7-8 hours Living Arrangement / Ability to function: Selene Argueta currently resides with half-way partner and father and takes care of him ADLs: Yes Driving:Yes Finances:Yes Medications: Yes Cooking:Yes Previous work-up: AB40/42 testing via [employer] -------- OUTPATIENT MEDICATIONS Current Outpatient Medications on File Prior to Visit Medication Sig Cyanocobalamin-Cobamamide (B12) 5,000-100 mcg lozg [id number]-mins 200 mg-5 mcg-75 mg-200 mcg DFE tab valACYclovir (VALTREX) 1 gram TAKE 2 TABLETS BY MOUTH TWICE DAILY FOR ONE DAY NEEDED Ascorbic Acid (VITAMIN C) 100 mg tablet Take 100 mg by mouth once daily. fluticasone-vilanterol (BREO ELLIPTA) 100-25 mcg/dose inhaler Inhale 1 Inhalation as instructed once daily. cholecalciferol (VITAMIN D3) 1,000 unit tab tablet dextromethorphan polistirex ER (DELSYM) 30 mg/5 mL oral liquid Take by mouth. guaiFENesin (MUCINEX) 600 mg 12 hr tablet Take by mouth. omeprazole (PRILOSEC) 20 mg capsule Take 20 mg by mouth once daily. benzonatate (TESSALON PERLES) 100 mg capsule Take 1 capsule by mouth three times daily as needed. FOR COUGHING. MULTIVITAMIN TAB Take one(1) tablet daily. calcium citrate/vitamin d3(CITRACAL + D 315 MG-200 UNIT TAB) Take one(1) tablet daily. No current facility-administered medications on file prior to visit. MEDICAL HISTORY PAST MEDICAL HISTORY (more content not included)... [facility] 08-18-2022 Instructions Alba Cuellar [facility] - 08/18/2022 9:36 AM EDT Vocal Hygiene Strategies for Chronic Cough Reducing irritation in your throat and airway is an important component of treatment for chronic cough. Coughing is triggered once irritation builds up to a certain level. Increasing irritation can trigger cough whereas reducing irritation reduces coughing. A cough is less likely to be triggered if the rate of irritation can be slowed. There are several strategies for reduced irritation, which are described below. Drink adequate quantities of water If you are not well hydrated your vocal folds will have to work a lot harder whenever you talk. Drinking adequate water will also promote healing and reduce risk of injury. Many people with chronic cough are poorly hydrated. Aim to drink at least 2 litres of water a day and more during hot weather or exercise. Drink water frequently throughout the day, e.g. take small sips every 15 minutes. Drink water when your throat feels irritated rather than coughing and clearing your throat. If you do not like water try adding small amounts of lemon, mashpee or orange juice, mint leaves, and experiment with different temperatures. Avoid exposure to smoke Smoking is irritating, damaging, and drying to the larynx. Smoking is one of the leading causes of cancer in the lungs, and larynx. Reducing exposure to smoking and smokey environments can reduce irritation. Breathe through your nose Your nose has three important functions. Your nose Warms the air, Cleans the air, and Humidifies the air. Therefore, if you breathe through your nose the air will be warm, clean, and moist when it reaches your throat and lungs. However if you breathe through your mouth, the air will be cold, dirty, and dry. It is no surprise that cold, dry and dirty air causes irritation. Breathing through your nose will reduce irritation. It can be difficulty to breathe through your nose if you are in the habit of mouth breathing. The best strategy is to breathe through your nose whenever you remember. Minimize intake of dehydrating substances Substances containing alcohol (e.g. wine, beer, and spirits) and caffeine (e.g. tea, coffee, cola) are very drying and can increase irritation that leads to coughing. It would be ideal to eliminate or minimize these until you get your cough under control. Lifestyle strategies for reflux Reflux can be associated with cough. The following strategies are important if you have suspected reflux. Raise the head of your bed when sleeping. This reduces the chance of stomach acid reaching the level of the vocal folds while you are lying down. Propping yourself up on cushions is not sufficient. Reduce the intake of foods that can trigger reflux such as chocolate, spicy food, fatty food, caffeine, and alcohol. Lose weight if you are overweight. Eat smaller meals rather than larger meals. Avoid eating or drinking before going to bed. Inhale steam Research has shown that inhaling steam adds moisture to the surface of you vocal folds. This promotes healing and reduced risk of injury. Fill your kitchen sink with hot or boiling water Breathe in the moist air or steam Do not add anything to the water. Most substances that you add to the water will cause dryness and irritation. Suck on non-medicated lozenges, chewing gum, or honey. Sucking on non-medicated lozenges causes you to produce more saliva and swallow more frequently, which can be very soothing to the throat. Avoid medicated cough lollipops; in particular, those which contain menthol can be drying to the throat and should be avoided. Similarly, chewing gum or swallowing whole teaspoons of honey increase the rate of swallowing and have a soothing effect. This information was obtain directly from Speech Pathology Management of Chronic Refractory Cough, Disha Hwang & Laney Plummer (p.[phone]). Strategies for Cough Reduction These strategies can be used proactively (before) and retroactively (once cough has already started) or interactively (interchange strategies back and forth) Cough Suppression Swallow: Swallow hard with effort. You can do this with just your saliva or small sips of water. If you want to generate more pressure, you can tuck your chin and swallow. Sniff and Blow Breath Sniff in through the nose, out through the mouth. Alternatively, you can sniff through the nose then round the lips and pulse the exhalation. Sniff and Hiss Sniff in through the nose, his out on sssss sound, like a snake. Alternatively, you can sniff through the nose and use a pulsed hiss on exhalation. Straw Breath Breathe in and out through rounded lips or through a straw. Pursed lip cough Dampening cough with rounded lips and cough to decrease severity and intensity of cough. ~~~~~~~~~~~~~~~~~~~~~~~~~~~~~~~~~~ ~~~~~~~~~~~~~~~~~~~~~~~~~~~~~ Other helpful items: Gargle with seltzer water: 5 gargles of sparkling water. Gargle back and spit out. 2-3x/day or as needed. Non-Medicated Cough Drops for increasing oral moisture: Ludens or Merritt's Breezers (cheaper and easier to get); Gerther's Pastilles (more expensive and harder to get) these cough drops are made with glycerin, which doesn't dry you out like menthol or eucalyptus. Amazon has them. Diabetics show caution, they are not sugar free. Xylimelts: xylitol cough drops for oral moistening. At the Drugstore. Cepacol Lozenges: numbing drops. Biotene products: gel or mouthwash. In the oral care aisle. Sipping water to increase hydration: Keep a small bottle of water with you. Take small sips of water throughout the day. This keeps you swallowing. When you are swallowing, you are not coughing. documented in this encounter [facility] 08-18-2022 History of Present illness Narrative [facility] Alba Cuellar MS, CCC-CLINICAL PHLEBOTOMIST NAME: Selene Argueta DATE OF SERVICE: August 18, 2022 Onset of Illness: 10/2020 Initial Day of Treatment: August 18, 2022 Treatment Plan Date: August 18, 2022 IMPRESSION AND PLAN Consultation requested by Dr. Guillen for evaluation and recommendations regarding management of chronic cough in [facility]. Selene Argueta is a 62 year old patient who presented with complaints of chronic cough in the setting of bronchiectasis. Patient has been followed by Dr. Jane. Treatment to this date has not relieved her of her cough. Patient saw Dr. 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 Patient opted to trial 2 weeks of prednisone and Breo inhaler prior to neuromodulators and SLN injection. Instructed patient in cough suppression strategies, including but not limited to, swallowing, sipping water, sniff-blow breathing, pursed lip breathing gargling, and using non-mentholated throat lozanges. Counseled the patient that implementation of these behaviors are largely dependent on conscious awareness of when she feels she is going to cough, or implementation after she has already started coughing. Patient indicated understanding and will begin to implement strategies on her own. Patient was able to stop 2 boughs of coughing with sniff-blow breathing in the office today. Patient will update with with her progress and reach out with any questions. Patient to follow-up PRN. Goals: 1. Patient will independently execute strategies for cough reduction 80-90% of the time. 2. Patient will increase understanding of sensory motor response patterns, in order to facilitate implementation of cough reduction strategies in 8 out of 10 opportunities. 3. Patient will decrease laryngeal hyperresponsiveness via behavioral strategies in 8 out of 10 opportunities. [facility] SPEECH-LANGUAGE PATHOLOGY ASSESSMENT QUALITATIVE VOICE ASSESSMENT Voice Quality/GRBAS (0= normal, 1 = mild, 2= moderate, 3= severe): GRADE 0: rough 0/3, breathy 0/3, strained 0/3, weak/asthenic 0/3, glottal new 0/3 Pitch: WNL. Intonation: WNL. Volume: WNL. Resonance: WNL. Articulation: WNL. Fluency: WNL. Rate: WNL. BEHAVIORAL VOICE ASSESSMENT Phonotraumatic behaviors: WNL. Job requires increased voice demands: Yes. Cough/Throat Clear: chronic cough for several years. VOICE-RELATED MEDICAL HISTORY History of reflux: Trialed reflux medication without benefit History of TMJD:No History of surgery of the neck or back:- History of SANJU:- History of asthma: H/o bronchiectasis History of allergies: - Trauma to the larynx: - LCQ- 13.795 VIDEOSTROBOSCOPY PROCEDURE (Procedure performed by Dr. Guillen on 08/18/22 and reviewed by CLINICAL PHLEBOTOMIST today): Per Dr. Guillen's Note on 08/18/22: Flexible laryngoscopy was performed because of the following indication: Poor visualization with mirror and/or the need for high resolution imaging of laryngeal function and dynamic airway. After spraying the nose with xylocaine/neosynephrine, the flexible scope was placed in a transnasal fashion. The nasopharynx, oropharynx, hypopharynx including the pyriform sinuses were normal. The base of tongue showed no gross lesions. The larynx itself showed no lesions Right VC motion: nl Left VC motion:nl Closure: complete HISTORY OF PRESENT ILLNESS HPI per Dr. Guillen's Note on 08/18/22; Assessment and Plan (Medical Decision Making): Selene Argueta is a 62 y/o female w/ hx of chronic cough in setting of bronchiectasis. Today she notes her cough has been refractory to delsym, acid reduction, and inhaler therapy. She has not had a formal course of steroids or ICS/LABA that I could discern. Today's exam revealed no trigger points in the neck. Her larynx appears healthy with no structural etiology for the cough. 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 We discussed several treatment options and approaches included neuromodulators, SLN block, and laryngeal botox. Her brother also has diagnosis and bronchiectasis and chronic cough and received benefit from combination ICS/ LABA. We talked about a two week trial of prednisone as well as a trial of Breo. She is inclined to try prednisone and breo before considering a nerve block or other neuromodulators. She will reports back to me in a few weeks to a month with an update. Surgery - discussed option of SLN block, will defer for now. Drug management - prescribed prednisone and she will let me know if she wants me to prescribe breo. Labs and Imaging ordered - none Consults - none Follow up - electronically 2-4 week HPI: In her recent visit with Pulmonary Dr. 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 She discussed getting a sputum sample, antibiotics, and neuromodulator therapy. Patient declined pharmacologic therapy. Provided list of over the counter remedies and consulted speech therapy and patient would like to pursue acupuncture. She noted cough started in June of 2021. She began to start working with a personal service representative but then began to start coughing it wasn't severe at first but got worse over time. She got Bronchitis in August of 2021. Every time she gets sick her cough flares up. She notes she rarely goes 30 minutes without coughing. She will bring up yellowish green phlegm occasionally while coughing. She notes talking a lot can trigger her cough. Today she noted nothing has worked for her cough. Her brother diagnosed with same thing and breo ellipta was able to stop his bronchiectasis but her insurance would not cover this medicine and she had to pay out of pocket. No past medical history on file. Current Outpatient Medications on File Prior to Visit Medication Sig predniSONE (DELTASONE) 10 mg tablet Take 2 tablets by mouth once daily for 14 days. fluticasone-vilanterol (BREO ELLIPTA) 100-25 mcg/dose inhaler Inhale 1 Inhalation as instructed once daily. cholecalciferol (VITAMIN D3) 1,000 unit tab tablet dextromethorphan polistirex ER (DELSYM) 30 mg/5 mL oral liquid Take by mouth. valACYclovir (VALTREX) 1 gram TAKE 2 TABLETS BY MOUTH TWICE DAILY FOR ONE DAY NEEDED guaiFENesin (MUCINEX) 600 mg 12 hr tablet Take by mouth. omeprazole (PRILOSEC) 20 mg capsule Take 20 mg by mouth once daily. benzonatate (TESSALON PERLES) 100 mg capsule Take 1 capsule by mouth three times daily as needed. FOR COUGHING. Ascorbic Acid (VITAMIN C) 100 mg tablet Take 100 mg by mouth once daily. MULTIVITAMIN TAB Take one(1) tablet daily. calcium citrate/vitamin d3(CITRACAL + D 315 MG-200 UNIT TAB) Take one(1) tablet daily. No current facility-administered medications on file prior to visit. Alba Cuellar MS, CCC-CLINICAL PHLEBOTOMIST Speech-Language Pathologist [facility] documented in this encounter [facility] 07-26-2022 Miscellaneous Notes Please see message below, is there anything else I can help her with? Thank you Toshia Roque Ma documented in this encounter [facility] 04-13-2022 Instructions Migdalia Jane DO - 04/13/2022 3:05 PM EDT Our plan: Your cough is likely due to a combination of bronchiectasis (dilated airways) and cough hypersensitivity syndrome (nerve-induced cough) The cough from bronchiectasis is almost always productive - bring up phlegm. This is the cough that is likely waking you up in the middle of the night. The cough from nerves is dry and can be severe and is often preceded by a tickle sensation The current cough seems to be more from bronchiectasis. We can try a course of antibiotics and/or get a sputum sample Additional options: Speech therapy Over the counter lozenges: [place] brothers, Cepacol You can try tumeric Holden water (no flavor) Yogi tea Acupuncture documented in this encounter [facility] 04-13-2022 History of Present illness Narrative IMPRESSION: Refractory Chronic Cough, most likely due to a combination of bronchiectasis and cough hypersensitivity syndrome We discussed how the contribution of each of these to the overall burden of her cough can vary over time. Her current cough seems to be more from bronchiectasis as it is productive in nature. 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) and this is likely responsible for the intermittent/episodic severe coughing episodes RECOMMENDATIONS: We discussed options for treatment aimed at the underlying cause of her cough including obtaining a sputum sample, antibiotics, and neuromodulator therapy She is understandably concerned about side effects and declines any pharmacologic therapy at this time I provided a list of over the counter remedies and consulted speech therapy She would like to pursue acupuncture as well She will send me an update via [employer] Total visit time: 50 minutes, > 50% of the visit was spent in counseling and discussion of treatment plan Consult requested by Jennifer Gerard for an opinion regarding chronic cough My final recommendations will be communicated back to the requesting physician by way of shared Medical record or letter to requesting physician via [place] mail. HPI: Cough started in June of last year She started working with a person link trainer, made it through two sessions and started coughing She ignored it at first and it wasn't severe Got bronchitis (COVID negative) in August or September The cough never went away Since then she has had a sinus infection and another URI Every time she gets sick this flares the cough Filled out a cough diary There were very few days where she went 30 minutes without coughing Could not find any patterns in her diary related to meals Diet hasn't changed Stopped eating at night before bed, no difference Cut out soda and acidic foods When she stands up she feels like she coughs less Triggers: talking and laughing Points to her neck as the source of her cough Gets a tickle sensation and fullness that occurs before a severe coughing jag Bringing up yellowish green phlegm 60% of the time Thick in consistency and about a quarter in size, maybe three times a day This started four weeks ago Has not had any antibiotics this year Cough is typically dry Can gag from coughing Cough can wake her up in the middle of the night, not always What she has tried: Prilosec - still on this, no benefit, has been on this for three months Delsym syrup and pills - this gives her some relief Inhaler therapy - tried this for one to two weeks, cannot recall which one was prescribed MCT was negative CT chest from August of 2021 showed mild bronchiectasis in RML and lingula Immunoglobulin levels checked and wnl No shortness of breath or wheezing Review of Systems: GENERAL: no fever/night sweats/weight loss HEENT: no sinus issues NECK: See HPI RESPIRATORY: See HPI CARDIOVASCULAR: no chest pain GASTROINTESTINAL: See HPI MUSCULOSKELETAL: Negative for joint pain or swelling, back pain or muscle pain SKIN: Negative for lesions, rash, and itching PSYCH: no new sleep issues NEURO: no headaches All other reviewed and negative other than HPI. 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 Physical Exam: BP 105/70 Pulse 75 Temp 36.6 C (97.8 F) (Temporal) Wt 49.8 kg (109 lb 12.6 oz) SpO2 97% BMI 20.74 kg/m GENERAL: No acute resp distress EYES: No icterus HEENT: No thrush. Nasal mucosa appears normal LYMPHATIC: No neck lymphadenopathy HEART: HR regular with no obvious murmur LUNGS: clear b/l EXTREMITIES: No LE edema or clubbing PERIPHERAL PULSES: Normal Any available spirometry and chest radiography reviewed personally. Migdalia Jane DO documented in this encounter [facility] 04-13-2022 History of Present illness Narrative PULM FUNCTION SMARTBLOCK: Provider: Migdalia Jane DO Spirometry: 1 Exhaled Nitric Oxide: 1 System: [id number] documented in this encounter [facility] 04-13-2022 Procedure note Associated Order(s): NITRIC OXIDE, EXHALED RESPIRATORY THERAPY ORAL EXHALED NITRIC OXIDE SERVICE DATE: 04/13/2022 SERVICE TIME: 1:28 PM Oral Exhaled Nitric Oxide measurement: 18.0 (ppb) Normal: Adult 5-20 ppb, pediatric (<12 years) 5-15 ppb High Normal / Increased: Adult 20-35 ppb, pediatric (<12 years) 15-25 ppb Moderately raised exhaled Nitric Oxide may indicate underlying inflammation, but note that: Cold and influenza can raise exhaled Nitric Oxide and some patients have higher baseline exhaled Nitric Oxide levels than others. High: Adult >35 ppb, pediatric (<12 years) >25 ppb Indicative of ongoing eosinophilic inflammation. Symptomatic patient likely to respond to steroids. Possible causes (if already on steroids): Poor compliance, recent allergen exposure, steroid dose inadequate, and steroid resistance. Note that not all patients with high exhaled nitric oxide levels display symptoms. Oral Exhaled Nitric Oxide measurement (Previous Encounters) Test Date Oral Exhaled Nitric Oxide (ppb) 04/13/2022 18.0 12/10/2021 12.0 NAME: Radha Renee RRT PATIENT NAME: Selene Argueta DATE: April 13, 2022 TIME: 1:28 PM documented in this encounter [facility] Shortness of breath- Primary [facility] Diagnosis Shortness of breath [facility] Diagnosis Shortness of breath [facility] Diagnosis Chronic cough- Primary Cough Cough 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 Bronchiectasis without complication (HCC) Bronchiectasis without acute exacerbation [facility] Diagnosis Other diseases of vocal cords- Primary Chronic cough Cough Laryngeal spasm Vagal nerve sensitivity 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 [facility] [place] Name Dates Details How to Access [facility] Online using Patient Portal and Prim[employer] Apps Indication:Non-smoker Start:12-Mar-2021 Instruction Type:Patient Education Patient Instructions Indication:Non-smoker Start:12-Mar-2021 Instruction Type:Provider Instructions for Treatment How to access health informa tion online Indication:Non-smoker Start:30-Aug-2018 Instruction Type:Patient Education How to access health informa tion online - Detail Indication:Non-smoker Start:30-Aug-2018 Instruction Type:Patient Education Patient Instructions Indication:Non-smoker Start:30-Aug-2018 Instruction Type:Provider Instructions for Treatment How to access health informa tion online Indication:Non-smoker Start:27-Jul-2018 Instruction Type:Patient Education How to access health informa tion online - Detail Indication:Non-smoker Start:27-Jul-2018 Instruction Type:Patient Education Patient Instructions Indication:Non-smoker Start:27-Jul-2018 Instruction Type:Provider Instructions for Treatment Patient Instructions Indication:Breast cancer screening Start:08-Jun-2018 Instruction Type:Provider Instructions for Treatment How to access health informa tion online Indication:Osteopenia Start:08-Jun-2018 Instruction Type:Patient Education How to access health informa tion online - Detail Indication:Osteopenia Start:08-Jun-2018 Instruction Type:Patient Education How to access health informa tion online Indication:Cough Start:15-Aug-2017 Instruction Type:Patient Education How to access health informa tion online - Detail Indication:Cough Start:15-Aug-2017 Instruction Type:Patient Education Patient Instructions Indication:Cough Start:15-Aug-2017 Instruction Type:Provider Instructions for Treatment How to access health informa tion online Indication:Current non-smoker Start:28-Nov-2016 Instruction Type:Patient Education How to access health informa tion online - Detail Indication:Current non-smoker Start:28-Nov-2016 Instruction Type:Patient Education Patient Instructions Indication:Current non-smoker Start:28-Nov-2016 Instruction Type:Provider Instructions for Treatment How to access health informa tion online Indication:Cough Start:11-Oct-2016 Instruction Type:Patient Education How to access health informa tion online - Detail Indication:Cough Start:11-Oct-2016 Instruction Type:Patient Education Patient Instructions Indication:Cough Start:11-Oct-2016 Instruction Type:Provider Instructions for Treatment How to access health informa tion online Indication:Vitamin D deficiency, unspecified Start:12-Jul-2016 Instruction Type:Patient Education How to access health informa tion online - Detail Indication:Vitamin D deficiency, unspecified Start:12-Jul-2016 Instruction Type:Patient Education Patient Instructions Indication:Vitamin D deficiency, unspecified Start:12-Jul-2016 Instruction Type:Provider Instructions for Treatment How to access health informa tion online 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-2016 Instruction Type:Patient Education How to access health informa tion online - Detail 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-2016 Instruction Type:Patient Education Patient Instructions 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-2016 Instruction Type:Provider Instructions for Treatment How to access health informa tion online Indication:Recurrent cold sores Start:12-Nov-2014 Instruction Type:Patient Education How to access health informa tion online - Detail Indication:Recurrent cold sores Start:12-Nov-2014 Instruction Type:Patient Education [facility]; [facility] Work Phone: Instructions* Name Dates Details How to Access Health Informa tion Online using Patient Portal and [employer] Apps Indication:Non-smoker Start:12-Mar-2021 Instruction Type:Patient Education Patient Instructions Indication:Non-smoker Start:12-Mar-2021 Instruction Type:Provider Instructions for Treatment How to access health informa tion online Indication:Non-smoker Start:30-Aug-2018 Instruction Type:Patient Education How to access health informa tion online - Detail Indication:Non-smoker Start:30-Aug-2018 Instruction Type:Patient Education Patient Instructions Indication:Non-smoker Start:30-Aug-2018 Instruction Type:Provider Instructions for Treatment How to access health informa tion online Indication:Non-smoker Start:27-Jul-2018 Instruction Type:Patient Education How to access health informa tion online - Detail Indication:Non-smoker Start:27-Jul-2018 Instruction Type:Patient Education Patient Instructions Indication:Non-smoker Start:27-Jul-2018 Instruction Type:Provider Instructions for Treatment Patient Instructions Indication:Breast cancer screening Start:08-Jun-2018 Instruction Type:Provider Instructions for Treatment How to access health informa tion online Indication:Osteopenia Start:08-Jun-2018 Instruction Type:Patient Education How to access health informa tion online - Detail Indication:Osteopenia Start:08-Jun-2018 Instruction Type:Patient Education How to access health informa tion online Indication:Cough Start:15-Aug-2017 Instruction Type:Patient Education How to access health informa tion online - Detail Indication:Cough Start:15-Aug-2017 Instruction Type:Patient Education Patient Instructions Indication:Cough Start:15-Aug-2017 Instruction Type:Provider Instructions for Treatment How to access health informa tion online Indication:Current non-smoker Start:28-Nov-2016 Instruction Type:Patient Education How to access health informa tion online - Detail Indication:Current non-smoker Start:28-Nov-2016 Instruction Type:Patient Education Patient Instructions Indication:Current non-smoker Start:28-Nov-2016 Instruction Type:Provider Instructions for Treatment How to access health informa tion online Indication:Cough Start:11-Oct-2016 Instruction Type:Patient Education How to access health informa tion online - Detail Indication:Cough Start:11-Oct-2016 Instruction Type:Patient Education Patient Instructions Indication:Cough Start:11-Oct-2016 Instruction Type:Provider Instructions for Treatment How to access health informa tion online Indication:Vitamin D deficiency, unspecified Start:12-Jul-2016 Instruction Type:Patient Education How to access health informa tion online - Detail Indication:Vitamin D deficiency, unspecified Start:12-Jul-2016 Instruction Type:Patient Education Patient Instructions Indication:Vitamin D deficiency, unspecified Start:12-Jul-2016 Instruction Type:Provider Instructions for Treatment How to access health informa tion online 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-2016 Instruction Type:Patient Education How to access health informa tion online - Detail 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-2016 Instruction Type:Patient Education Patient Instructions 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-2016 Instruction Type:Provider Instructions for Treatment How to access health informa tion online Indication:Recurrent cold sores Start:12-Nov-2014 Instruction Type:Patient Education How to access health informa tion online - Detail Indication:Recurrent cold sores Start:12-Nov-2014 Instruction Type:Patient Education [facility]; [facility] Work Phone: Instructions* Name Dates Details How to Access Health Informa tion Online using Patient Portal and [employer] Apps Indication:Non-smoker Start:08-Apr-2021 Instruction Type:Patient Education Patient Instructions Indication:Non-smoker Start:08-Apr-2021 Instruction Type:Provider Instructions for Treatment How to Access Health Informa tion Online using Patient Portal and [employer] Apps Indication:Non-smoker Start:12-Mar-2021 Instruction Type:Patient Education Patient Instructions Indication:Non-smoker Start:12-Mar-2021 Instruction Type:Provider Instructions for Treatment How to access health informa tion online Indication:Non-smoker Start:30-Aug-2018 Instruction Type:Patient Education How to access health informa tion online - Detail Indication:Non-smoker Start:30-Aug-2018 Instruction Type:Patient Education Patient Instructions Indication:Non-smoker Start:30-Aug-2018 Instruction Type:Provider Instructions for Treatment How to access health informa tion online Indication:Non-smoker Start:27-Jul-2018 Instruction Type:Patient Education How to access health informa tion online - Detail Indication:Non-smoker Start:27-Jul-2018 Instruction Type:Patient Education Patient Instructions Indication:Non-smoker Start:27-Jul-2018 Instruction Type:Provider Instructions for Treatment Patient Instructions Indication:Breast cancer screening Start:08-Jun-2018 Instruction Type:Provider Instructions for Treatment How to access health informa tion online Indication:Osteopenia Start:08-Jun-2018 Instruction Type:Patient Education How to access health informa tion online - Detail Indication:Osteopenia Start:08-Jun-2018 Instruction Type:Patient Education How to access health informa tion online Indication:Cough Start:15-Aug-2017 Instruction Type:Patient Education How to access health informa tion online - Detail Indication:Cough Start:15-Aug-2017 Instruction Type:Patient Education Patient Instructions Indication:Cough Start:15-Aug-2017 Instruction Type:Provider Instructions for Treatment How to access health informa tion online Indication:Current non-smoker Start:28-Nov-2016 Instruction Type:Patient Education How to access health informa tion online - Detail Indication:Current non-smoker Start:28-Nov-2016 Instruction Type:Patient Education Patient Instructions Indication:Current non-smoker Start:28-Nov-2016 Instruction Type:Provider Instructions for Treatment How to access health informa tion online Indication:Cough Start:11-Oct-2016 Instruction Type:Patient Education How to access health informa tion online - Detail Indication:Cough Start:11-Oct-2016 Instruction Type:Patient Education Patient Instructions Indication:Cough Start:11-Oct-2016 Instruction Type:Provider Instructions for Treatment How to access health informa tion online Indication:Vitamin D deficiency, unspecified Start:12-Jul-2016 Instruction Type:Patient Education How to access health informa tion online - Detail Indication:Vitamin D deficiency, unspecified Start:12-Jul-2016 Instruction Type:Patient Education Patient Instructions Indication:Vitamin D deficiency, unspecified Start:12-Jul-2016 Instruction Type:Provider Instructions for Treatment How to access health informa tion online 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-2016 Instruction Type:Patient Education How to access health informa tion online - Detail 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-2016 Instruction Type:Patient Education Patient Instructions 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-2016 Instruction Type:Provider Instructions for Treatment How to access health informa tion online Indication:Recurrent cold sores Start:12-Nov-2014 Instruction Type:Patient Education How to access health informa tion online - Detail Indication:Recurrent cold sores Start:12-Nov-2014 Instruction Type:Patient Education [facility]; [facility] Work Phone: Instructions* Name Dates Details How to Access Health Informa tion Online using Patient Portal and [employer] Apps Indication:Non-smoker Start:08-Apr-2021 Instruction Type:Patient Education Patient Instructions Indication:Non-smoker Start:08-Apr-2021 Instruction Type:Provider Instructions for Treatment How to Access Health Informa tion Online using Patient Portal and [employer] Apps Indication:Non-smoker Start:12-Mar-2021 Instruction Type:Patient Education Patient Instructions Indication:Non-smoker Start:12-Mar-2021 Instruction Type:Provider Instructions for Treatment How to access health informa tion online Indication:Non-smoker Start:30-Aug-2018 Instruction Type:Patient Education How to access health informa tion online - Detail Indication:Non-smoker Start:30-Aug-2018 Instruction Type:Patient Education Patient Instructions Indication:Non-smoker Start:30-Aug-2018 Instruction Type:Provider Instructions for Treatment How to access health informa tion online Indication:Non-smoker Start:27-Jul-2018 Instruction Type:Patient Education How to access health informa tion online - Detail Indication:Non-smoker Start:27-Jul-2018 Instruction Type:Patient Education Patient Instructions Indication:Non-smoker Start:27-Jul-2018 Instruction Type:Provider Instructions for Treatment Patient Instructions Indication:Breast cancer screening Start:08-Jun-2018 Instruction Type:Provider Instructions for Treatment How to access health informa tion online Indication:Osteopenia Start:08-Jun-2018 Instruction Type:Patient Education How to access health informa tion online - Detail Indication:Osteopenia Start:08-Jun-2018 Instruction Type:Patient Education How to access health informa tion online Indication:Cough Start:15-Aug-2017 Instruction Type:Patient Education How to access health informa tion online - Detail Indication:Cough Start:15-Aug-2017 Instruction Type:Patient Education Patient Instructions Indication:Cough Start:15-Aug-2017 Instruction Type:Provider Instructions for Treatment How to access health informa tion online Indication:Current non-smoker Start:28-Nov-2016 Instruction Type:Patient Education How to access health informa tion online - Detail Indication:Current non-smoker Start:28-Nov-2016 Instruction Type:Patient Education Patient Instructions Indication:Current non-smoker Start:28-Nov-2016 Instruction Type:Provider Instructions for Treatment How to access health informa tion online Indication:Cough Start:11-Oct-2016 Instruction Type:Patient Education How to access health informa tion online - Detail Indication:Cough Start:11-Oct-2016 Instruction Type:Patient Education Patient Instructions Indication:Cough Start:11-Oct-2016 Instruction Type:Provider Instructions for Treatment How to access health informa tion online Indication:Vitamin D deficiency, unspecified Start:12-Jul-2016 Instruction Type:Patient Education How to access health informa tion online - Detail Indication:Vitamin D deficiency, unspecified Start:12-Jul-2016 Instruction Type:Patient Education Patient Instructions Indication:Vitamin D deficiency, unspecified Start:12-Jul-2016 Instruction Type:Provider Instructions for Treatment How to access health informa tion online 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-2016 Instruction Type:Patient Education How to access health informa tion online - Detail 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-2016 Instruction Type:Patient Education Patient Instructions 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-2016 Instruction Type:Provider Instructions for Treatment How to access health informa tion online Indication:Recurrent cold sores Start:12-Nov-2014 Instruction Type:Patient Education How to access health informa tion online - Detail Indication:Recurrent cold sores Start:12-Nov-2014 Instruction Type:Patient Education [facility]; [facility] Work Phone: Instructions* Name Dates Details Patient Instructions Indication:Non-smoker Start:28-Jan-2022 Instruction Type:Provider Instructions for Treatment How to Access Health Informa tion Online using Patient Portal and [employer] Apps Indication:Non-smoker Start:28-Jan-2022 Instruction Type:Patient Education Patient Instructions Indication:Cough Start:16-Aug-2021 Instruction Type:Provider Instructions for Treatment How to Access Health Informa tion Online using Patient Portal and [employer] Apps Indication:Cough Start:16-Aug-2021 Instruction Type:Patient Education Patient Instructions Indication:Non-smoker Start:09-Aug-2021 Instruction Type:Provider Instructions for Treatment How to Access Health Informa tion Online using Patient Portal and [employer] Apps Indication:Non-smoker Start:09-Aug-2021 Instruction Type:Patient Education Patient Instructions Indication:Bronchitis Start:26-Jul-2021 Instruction Type:Provider Instructions for Treatment How to Access Health Informa tion Online using Patient Portal and [employer] Apps Indication:Bronchitis Start:26-Jul-2021 Instruction Type:Patient Education How to Access Health Informa tion Online using Patient Portal and [employer] Apps Indication:Non-smoker Start:22-Apr-2021 Instruction Type:Patient Education Patient Instructions Indication:Non-smoker Start:22-Apr-2021 Instruction Type:Provider Instructions for Treatment How to Access Health Informa tion Online using Patient Portal and [employer] Apps Indication:Non-smoker Start:08-Apr-2021 Instruction Type:Patient Education Patient Instructions Indication:Non-smoker Start:08-Apr-2021 Instruction Type:Provider Instructions for Treatment How to Access Health Informa tion Online using Patient Portal and [employer] Apps Indication:Non-smoker Start:12-Mar-2021 Instruction Type:Patient Education Patient Instructions Indication:Non-smoker Start:12-Mar-2021 Instruction Type:Provider Instructions for Treatment How to access health informa tion online Indication:Non-smoker Start:30-Aug-2018 Instruction Type:Patient Education How to access health informa tion online - Detail Indication:Non-smoker Start:30-Aug-2018 Instruction Type:Patient Education Patient Instructions Indication:Non-smoker Start:30-Aug-2018 Instruction Type:Provider Instructions for Treatment How to access health informa tion online Indication:Non-smoker Start:27-Jul-2018 Instruction Type:Patient Education How to access health informa tion online - Detail Indication:Non-smoker Start:27-Jul-2018 Instruction Type:Patient Education Patient Instructions Indication:Non-smoker Start:27-Jul-2018 Instruction Type:Provider Instructions for Treatment Patient Instructions Indication:Breast cancer screening Start:08-Jun-2018 Instruction Type:Provider Instructions for Treatment How to access health informa tion online Indication:Osteopenia Start:08-Jun-2018 Instruction Type:Patient Education How to access health informa tion online - Detail Indication:Osteopenia Start:08-Jun-2018 Instruction Type:Patient Education How to access health informa tion online Indication:Cough Start:15-Aug-2017 Instruction Type:Patient Education How to access health informa tion online - Detail Indication:Cough Start:15-Aug-2017 Instruction Type:Patient Education Patient Instructions Indication:Cough Start:15-Aug-2017 Instruction Type:Provider Instructions for Treatment How to access health informa tion online Indication:Current non-smoker Start:28-Nov-2016 Instruction Type:Patient Education How to access health informa tion online - Detail Indication:Current non-smoker Start:28-Nov-2016 Instruction Type:Patient Education Patient Instructions Indication:Current non-smoker Start:28-Nov-2016 Instruction Type:Provider Instructions for Treatment How to access health informa tion online Indication:Cough Start:11-Oct-2016 Instruction Type:Patient Education How to access health informa tion online - Detail Indication:Cough Start:11-Oct-2016 Instruction Type:Patient Education Patient Instructions Indication:Cough Start:11-Oct-2016 Instruction Type:Provider Instructions for Treatment How to access health informa tion online Indication:Vitamin D deficiency, unspecified Start:12-Jul-2016 Instruction Type:Patient Education How to access health informa tion online - Detail Indication:Vitamin D deficiency, unspecified Start:12-Jul-2016 Instruction Type:Patient Education Patient Instructions Indication:Vitamin D deficiency, unspecified Start:12-Jul-2016 Instruction Type:Provider Instructions for Treatment How to access health informa tion online 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-2016 Instruction Type:Patient Education How to access health informa tion online - Detail 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-2016 Instruction Type:Patient Education Patient Instructions 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-2016 Instruction Type:Provider Instructions for Treatment How to access health informa tion online Indication:Recurrent cold sores Start:12-Nov-2014 Instruction Type:Patient Education How to access health informa tion online - Detail Indication:Recurrent cold sores Start:12-Nov-2014 Instruction Type:Patient Education [facility]; [facility] Work Phone: Instructions* Name Dates Details Patient Instructions Indication:Non-smoker Start:28-Jan-2022 Instruction Type:Provider Instructions for Treatment How to Access Health Informa tion Online using Patient Portal and [employer] Apps Indication:Non-smoker Start:28-Jan-2022 Instruction Type:Patient Education Patient Instructions Indication:Cough Start:16-Aug-2021 Instruction Type:Provider Instructions for Treatment How to Access Health Informa tion Online using Patient Portal and [employer] Apps Indication:Cough Start:16-Aug-2021 Instruction Type:Patient Education Patient Instructions Indication:Non-smoker Start:09-Aug-2021 Instruction Type:Provider Instructions for Treatment How to Access Health Informa tion Online using Patient Portal and [employer] Apps Indication:Non-smoker Start:09-Aug-2021 Instruction Type:Patient Education Patient Instructions Indication:Bronchitis Start:26-Jul-2021 Instruction Type:Provider Instructions for Treatment How to Access Health Informa tion Online using Patient Portal and [employer] Apps Indication:Bronchitis Start:26-Jul-2021 Instruction Type:Patient Education How to Access Health Informa tion Online using Patient Portal and [employer] Apps Indication:Non-smoker Start:22-Apr-2021 Instruction Type:Patient Education Patient Instructions Indication:Non-smoker Start:22-Apr-2021 Instruction Type:Provider Instructions for Treatment How to Access Health Informa tion Online using Patient Portal and [employer] Apps Indication:Non-smoker Start:08-Apr-2021 Instruction Type:Patient Education Patient Instructions Indication:Non-smoker Start:08-Apr-2021 Instruction Type:Provider Instructions for Treatment How to Access Health Informa tion Online using Patient Portal and [employer] Apps Indication:Non-smoker Start:12-Mar-2021 Instruction Type:Patient Education Patient Instructions Indication:Non-smoker Start:12-Mar-2021 Instruction Type:Provider Instructions for Treatment How to access health informa tion online Indication:Non-smoker Start:30-Aug-2018 Instruction Type:Patient Education How to access health informa tion online - Detail Indication:Non-smoker Start:30-Aug-2018 Instruction Type:Patient Education Patient Instructions Indication:Non-smoker Start:30-Aug-2018 Instruction Type:Provider Instructions for Treatment How to access health informa tion online Indication:Non-smoker Start:27-Jul-2018 Instruction Type:Patient Education How to access health informa tion online - Detail Indication:Non-smoker Start:27-Jul-2018 Instruction Type:Patient Education Patient Instructions Indication:Non-smoker Start:27-Jul-2018 Instruction Type:Provider Instructions for Treatment Patient Instructions Indication:Breast cancer screening Start:08-Jun-2018 Instruction Type:Provider Instructions for Treatment How to access health informa tion online Indication:Osteopenia Start:08-Jun-2018 Instruction Type:Patient Education How to access health informa tion online - Detail Indication:Osteopenia Start:08-Jun-2018 Instruction Type:Patient Education How to access health informa tion online Indication:Cough Start:15-Aug-2017 Instruction Type:Patient Education How to access health informa tion online - Detail Indication:Cough Start:15-Aug-2017 Instruction Type:Patient Education Patient Instructions Indication:Cough Start:15-Aug-2017 Instruction Type:Provider Instructions for Treatment How to access health informa tion online Indication:Current non-smoker Start:28-Nov-2016 Instruction Type:Patient Education How to access health informa tion online - Detail Indication:Current non-smoker Start:28-Nov-2016 Instruction Type:Patient Education Patient Instructions Indication:Current non-smoker Start:28-Nov-2016 Instruction Type:Provider Instructions for Treatment How to access health informa tion online Indication:Cough Start:11-Oct-2016 Instruction Type:Patient Education How to access health informa tion online - Detail Indication:Cough Start:11-Oct-2016 Instruction Type:Patient Education Patient Instructions Indication:Cough Start:11-Oct-2016 Instruction Type:Provider Instructions for Treatment How to access health informa tion online Indication:Vitamin D deficiency, unspecified Start:12-Jul-2016 Instruction Type:Patient Education How to access health informa tion online - Detail Indication:Vitamin D deficiency, unspecified Start:12-Jul-2016 Instruction Type:Patient Education Patient Instructions Indication:Vitamin D deficiency, unspecified Start:12-Jul-2016 Instruction Type:Provider Instructions for Treatment How to access health informa tion online 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-2016 Instruction Type:Patient Education How to access health informa tion online - Detail 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-2016 Instruction Type:Patient Education Patient Instructions 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-2016 Instruction Type:Provider Instructions for Treatment How to access health informa tion online Indication:Recurrent cold sores Start:12-Nov-2014 Instruction Type:Patient Education How to access health informa tion online - Detail Indication:Recurrent cold sores Start:12-Nov-2014 Instruction Type:Patient Education [facility]; [facility] Work Phone: Instructions* Name Dates Details Patient Instructions Indication:Non-smoker Start:28-Jan-2022 Instruction Type:Provider Instructions for Treatment How to Access Health Informa tion Online using Patient Portal and [employer] Apps Indication:Non-smoker Start:28-Jan-2022 Instruction Type:Patient Education Patient Instructions Indication:Cough Start:16-Aug-2021 Instruction Type:Provider Instructions for Treatment How to Access Health Informa tion Online using Patient Portal and [employer] Apps Indication:Cough Start:16-Aug-2021 Instruction Type:Patient Education Patient Instructions Indication:Non-smoker Start:09-Aug-2021 Instruction Type:Provider Instructions for Treatment How to Access Health Informa tion Online using Patient Portal and [employer] Apps Indication:Non-smoker Start:09-Aug-2021 Instruction Type:Patient Education Patient Instructions Indication:Bronchitis Start:26-Jul-2021 Instruction Type:Provider Instructions for Treatment How to Access Health Informa tion Online using Patient Portal and [employer] Apps Indication:Bronchitis Start:26-Jul-2021 Instruction Type:Patient Education How to Access Health Informa tion Online using Patient Portal and [employer] Apps Indication:Non-smoker Start:22-Apr-2021 Instruction Type:Patient Education Patient Instructions Indication:Non-smoker Start:22-Apr-2021 Instruction Type:Provider Instructions for Treatment How to Access Health Informa tion Online using Patient Portal and [employer] Apps Indication:Non-smoker Start:08-Apr-2021 Instruction Type:Patient Education Patient Instructions Indication:Non-smoker Start:08-Apr-2021 Instruction Type:Provider Instructions for Treatment How to Access Health Informa tion Online using Patient Portal and [employer] Apps Indication:Non-smoker Start:12-Mar-2021 Instruction Type:Patient Education Patient Instructions Indication:Non-smoker Start:12-Mar-2021 Instruction Type:Provider Instructions for Treatment How to access health informa tion online Indication:Non-smoker Start:30-Aug-2018 Instruction Type:Patient Education How to access health informa tion online - Detail Indication:Non-smoker Start:30-Aug-2018 Instruction Type:Patient Education Patient Instructions Indication:Non-smoker Start:30-Aug-2018 Instruction Type:Provider Instructions for Treatment How to access health informa tion online Indication:Non-smoker Start:27-Jul-2018 Instruction Type:Patient Education How to access health informa tion online - Detail Indication:Non-smoker Start:27-Jul-2018 Instruction Type:Patient Education Patient Instructions Indication:Non-smoker Start:27-Jul-2018 Instruction Type:Provider Instructions for Treatment Patient Instructions Indication:Breast cancer screening Start:08-Jun-2018 Instruction Type:Provider Instructions for Treatment How to access health informa tion online Indication:Osteopenia Start:08-Jun-2018 Instruction Type:Patient Education How to access health informa tion online - Detail Indication:Osteopenia Start:08-Jun-2018 Instruction Type:Patient Education How to access health informa tion online Indication:Cough Start:15-Aug-2017 Instruction Type:Patient Education How to access health informa tion online - Detail Indication:Cough Start:15-Aug-2017 Instruction Type:Patient Education Patient Instructions Indication:Cough Start:15-Aug-2017 Instruction Type:Provider Instructions for Treatment How to access health informa tion online Indication:Current non-smoker Start:28-Nov-2016 Instruction Type:Patient Education How to access health informa tion online - Detail Indication:Current non-smoker Start:28-Nov-2016 Instruction Type:Patient Education Patient Instructions Indication:Current non-smoker Start:28-Nov-2016 Instruction Type:Provider Instructions for Treatment How to access health informa tion online Indication:Cough Start:11-Oct-2016 Instruction Type:Patient Education How to access health informa tion online - Detail Indication:Cough Start:11-Oct-2016 Instruction Type:Patient Education Patient Instructions Indication:Cough Start:11-Oct-2016 Instruction Type:Provider Instructions for Treatment How to access health informa tion online Indication:Vitamin D deficiency, unspecified Start:12-Jul-2016 Instruction Type:Patient Education How to access health informa tion online - Detail Indication:Vitamin D deficiency, unspecified Start:12-Jul-2016 Instruction Type:Patient Education Patient Instructions Indication:Vitamin D deficiency, unspecified Start:12-Jul-2016 Instruction Type:Provider Instructions for Treatment How to access health informa tion online 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-2016 Instruction Type:Patient Education How to access health informa tion online - Detail 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-2016 Instruction Type:Patient Education Patient Instructions 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-2016 Instruction Type:Provider Instructions for Treatment How to access health informa tion online Indication:Recurrent cold sores Start:12-Nov-2014 Instruction Type:Patient Education How to access health informa tion online - Detail Indication:Recurrent cold sores Start:12-Nov-2014 Instruction Type:Patient Education [facility]; [facility] Work Phone: Instructions* Name Dates Details Patient Instructions Indication:Non-smoker Start:28-Jan-2022 Instruction Type:Provider Instructions for Treatment How to Access Health Informa tion Online using Patient Portal and [employer] Apps Indication:Non-smoker Start:28-Jan-2022 Instruction Type:Patient Education Patient Instructions Indication:Cough Start:16-Aug-2021 Instruction Type:Provider Instructions for Treatment How to Access Health Informa tion Online using Patient Portal and [employer] Apps Indication:Cough Start:16-Aug-2021 Instruction Type:Patient Education Patient Instructions Indication:Non-smoker Start:09-Aug-2021 Instruction Type:Provider Instructions for Treatment How to Access Health Informa tion Online using Patient Portal and [employer] Indication:Non-smoker Start:09-Aug-2021 Instruction Type:Patient Education Patient Instructions Indication:Bronchitis Start:26-Jul-2021 Instruction Type:Provider Instructions for Treatment How to Access Health Informa tion Online using Patient Portal and [employer] Apps Indication:Bronchitis Start:26-Jul-2021 Instruction Type:Patient Education How to Access Health Informa tion Online using Patient Portal and [employer] Apps Indication:Non-smoker Start:22-Apr-2021 Instruction Type:Patient Education Patient Instructions Indication:Non-smoker Start:22-Apr-2021 Instruction Type:Provider Instructions for Treatment How to Access Health Informa tion Online using Patient Portal and [employer] Apps Indication:Non-smoker Start:08-Apr-2021 Instruction Type:Patient Education Patient Instructions Indication:Non-smoker Start:08-Apr-2021 Instruction Type:Provider Instructions for Treatment How to Access Health Informa tion Online using Patient Portal and [employer] Apps Indication:Non-smoker Start:12-Mar-2021 Instruction Type:Patient Education Patient Instructions Indication:Non-smoker Start:12-Mar-2021 Instruction Type:Provider Instructions for Treatment How to access health informa tion online Indication:Non-smoker Start:30-Aug-2018 Instruction Type:Patient Education How to access health informa tion online - Detail Indication:Non-smoker Start:30-Aug-2018 Instruction Type:Patient Education Patient Instructions Indication:Non-smoker Start:30-Aug-2018 Instruction Type:Provider Instructions for Treatment How to access health informa tion online Indication:Non-smoker Start:27-Jul-2018 Instruction Type:Patient Education How to access health informa tion online - Detail Indication:Non-smoker Start:27-Jul-2018 Instruction Type:Patient Education Patient Instructions Indication:Non-smoker Start:27-Jul-2018 Instruction Type:Provider Instructions for Treatment Patient Instructions Indication:Breast cancer screening Start:08-Jun-2018 Instruction Type:Provider Instructions for Treatment How to access health informa tion online Indication:Osteopenia Start:08-Jun-2018 Instruction Type:Patient Education How to access health informa tion online - Detail Indication:Osteopenia Start:08-Jun-2018 Instruction Type:Patient Education How to access health informa tion online Indication:Cough Start:15-Aug-2017 Instruction Type:Patient Education How to access health informa tion online - Detail Indication:Cough Start:15-Aug-2017 Instruction Type:Patient Education Patient Instructions Indication:Cough Start:15-Aug-2017 Instruction Type:Provider Instructions for Treatment How to access health informa tion online Indication:Current non-smoker Start:28-Nov-2016 Instruction Type:Patient Education How to access health informa tion online - Detail Indication:Current non-smoker Start:28-Nov-2016 Instruction Type:Patient Education Patient Instructions Indication:Current non-smoker Start:28-Nov-2016 Instruction Type:Provider Instructions for Treatment How to access health informa tion online Indication:Cough Start:11-Oct-2016 Instruction Type:Patient Education How to access health informa tion online - Detail Indication:Cough Start:11-Oct-2016 Instruction Type:Patient Education Patient Instructions Indication:Cough Start:11-Oct-2016 Instruction Type:Provider Instructions for Treatment How to access health informa tion online Indication:Vitamin D deficiency, unspecified Start:12-Jul-2016 Instruction Type:Patient Education How to access health informa tion online - Detail Indication:Vitamin D deficiency, unspecified Start:12-Jul-2016 Instruction Type:Patient Education Patient Instructions Indication:Vitamin D deficiency, unspecified Start:12-Jul-2016 Instruction Type:Provider Instructions for Treatment How to access health informa tion online 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-2016 Instruction Type:Patient Education How to access health informa tion online - Detail 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-2016 Instruction Type:Patient Education Patient Instructions 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-2016 Instruction Type:Provider Instructions for Treatment How to access health informa tion online Indication:Recurrent cold sores Start:12-Nov-2014 Instruction Type:Patient Education How to access health informa tion online - Detail Indication:Recurrent cold sores Start:12-Nov-2014 Instruction Type:Patient Education [facility]; [facility] Work Phone: Instructions* Name Dates Details Patient Instructions Indication:BMI 21.0-21.9, adult Start:01-Aug-2022 Instruction Type:Provider Instructions for Treatment How to Access Health Informa tion Online using Patient Portal and [employer] Indication:BMI 21.0-21.9, adult Start:01-Aug-2022 Instruction Type:Patient Education Patient Instructions Indication:Non-smoker Start:28-Jan-2022 Instruction Type:Provider Instructions for Treatment How to Access Health Informa tion Online using Patient Portal and [employer] Indication:Non-smoker Start:28-Jan-2022 Instruction Type:Patient Education Patient Instructions Indication:Cough Start:16-Aug-2021 Instruction Type:Provider Instructions for Treatment How to Access Health Informa tion Online using Patient Portal and [employer] Indication:Cough Start:16-Aug-2021 Instruction Type:Patient Education Patient Instructions Indication:Non-smoker Start:09-Aug-2021 Instruction Type:Provider Instructions for Treatment How to Access Health Informa tion Online using Patient Portal and [employer] Indication:Non-smoker Start:09-Aug-2021 Instruction Type:Patient Education Patient Instructions Indication:Bronchitis Start:26-Jul-2021 Instruction Type:Provider Instructions for Treatment How to Access Health Informa tion Online using Patient Portal and [employer] Apps Indication:Bronchitis Start:26-Jul-2021 Instruction Type:Patient Education How to Access Health Informa tion Online using Patient Portal and [employer] Apps Indication:Non-smoker Start:22-Apr-2021 Instruction Type:Patient Education Patient Instructions Indication:Non-smoker Start:22-Apr-2021 Instruction Type:Provider Instructions for Treatment How to Access Health Informa tion Online using Patient Portal and [employer] Apps Indication:Non-smoker Start:08-Apr-2021 Instruction Type:Patient Education Patient Instructions Indication:Non-smoker Start:08-Apr-2021 Instruction Type:Provider Instructions for Treatment How to Access Health Informa tion Online using Patient Portal and [employer] Apps Indication:Non-smoker Start:12-Mar-2021 Instruction Type:Patient Education Patient Instructions Indication:Non-smoker Start:12-Mar-2021 Instruction Type:Provider Instructions for Treatment How to access health informa tion online Indication:Non-smoker Start:30-Aug-2018 Instruction Type:Patient Education How to access health informa tion online - Detail Indication:Non-smoker Start:30-Aug-2018 Instruction Type:Patient Education Patient Instructions Indication:Non-smoker Start:30-Aug-2018 Instruction Type:Provider Instructions for Treatment How to access health informa tion online Indication:Non-smoker Start:27-Jul-2018 Instruction Type:Patient Education How to access health informa tion online - Detail Indication:Non-smoker Start:27-Jul-2018 Instruction Type:Patient Education Patient Instructions Indication:Non-smoker Start:27-Jul-2018 Instruction Type:Provider Instructions for Treatment Patient Instructions Indication:Breast cancer screening Start:08-Jun-2018 Instruction Type:Provider Instructions for Treatment How to access health informa tion online Indication:Osteopenia Start:08-Jun-2018 Instruction Type:Patient Education How to access health informa tion online - Detail Indication:Osteopenia Start:08-Jun-2018 Instruction Type:Patient Education How to access health informa tion online Indication:Cough Start:15-Aug-2017 Instruction Type:Patient Education How to access health informa tion online - Detail Indication:Cough Start:15-Aug-2017 Instruction Type:Patient Education Patient Instructions Indication:Cough Start:15-Aug-2017 Instruction Type:Provider Instructions for Treatment How to access health informa tion online Indication:Current non-smoker Start:28-Nov-2016 Instruction Type:Patient Education How to access health informa tion online - Detail Indication:Current non-smoker Start:28-Nov-2016 Instruction Type:Patient Education Patient Instructions Indication:Current non-smoker Start:28-Nov-2016 Instruction Type:Provider Instructions for Treatment How to access health informa tion online Indication:Cough Start:11-Oct-2016 Instruction Type:Patient Education How to access health informa tion online - Detail Indication:Cough Start:11-Oct-2016 Instruction Type:Patient Education Patient Instructions Indication:Cough Start:11-Oct-2016 Instruction Type:Provider Instructions for Treatment How to access health informa tion online Indication:Vitamin D deficiency, unspecified Start:12-Jul-2016 Instruction Type:Patient Education How to access health informa tion online - Detail Indication:Vitamin D deficiency, unspecified Start:12-Jul-2016 Instruction Type:Patient Education Patient Instructions Indication:Vitamin D deficiency, unspecified Start:12-Jul-2016 Instruction Type:Provider Instructions for Treatment How to access health informa tion online 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-2016 Instruction Type:Patient Education How to access health informa tion online - Detail 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-2016 Instruction Type:Patient Education Patient Instructions 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-2016 Instruction Type:Provider Instructions for Treatment How to access health informa tion online Indication:Recurrent cold sores Start:12-Nov-2014 Instruction Type:Patient Education How to access health informa tion online - Detail Indication:Recurrent cold sores Start:12-Nov-2014 Instruction Type:Patient Education [facility]; [facility] Work Phone: Instructions* Name Dates Details Patient Instructions Indication:BMI 21.0-21.9, adult Start:01-Aug-2022 Instruction Type:Provider Instructions for Treatment How to Access Health Informa tion Online using Patient Portal and [employer] Apps Indication:BMI 21.0-21.9, adult Start:01-Aug-2022 Instruction Type:Patient Education Patient Instructions Indication:Non-smoker Start:28-Jan-2022 Instruction Type:Provider Instructions for Treatment How to Access Health Informa tion Online using Patient Portal and [employer] Apps Indication:Non-smoker Start:28-Jan-2022 Instruction Type:Patient Education Patient Instructions Indication:Cough Start:16-Aug-2021 Instruction Type:Provider Instructions for Treatment How to Access Health Informa tion Online using Patient Portal and [employer] Apps Indication:Cough Start:16-Aug-2021 Instruction Type:Patient Education Patient Instructions Indication:Non-smoker Start:09-Aug-2021 Instruction Type:Provider Instructions for Treatment How to Access Health Informa tion Online using Patient Portal and [employer] Apps Indication:Non-smoker Start:09-Aug-2021 Instruction Type:Patient Education Patient Instructions Indication:Bronchitis Start:26-Jul-2021 Instruction Type:Provider Instructions for Treatment How to Access Health Informa tion Online using Patient Portal and [employer] Apps Indication:Bronchitis Start:26-Jul-2021 Instruction Type:Patient Education How to Access Health Informa tion Online using Patient Portal and [employer] Apps Indication:Non-smoker Start:22-Apr-2021 Instruction Type:Patient Education Patient Instructions Indication:Non-smoker Start:22-Apr-2021 Instruction Type:Provider Instructions for Treatment How to Access Health Informa tion Online using Patient Portal and [employer] Apps Indication:Non-smoker Start:08-Apr-2021 Instruction Type:Patient Education Patient Instructions Indication:Non-smoker Start:08-Apr-2021 Instruction Type:Provider Instructions for Treatment How to Access Health Informa tion Online using Patient Portal and [employer] Apps Indication:Non-smoker Start:12-Mar-2021 Instruction Type:Patient Education Patient Instructions Indication:Non-smoker Start:12-Mar-2021 Instruction Type:Provider Instructions for Treatment How to access health informa tion online Indication:Non-smoker Start:30-Aug-2018 Instruction Type:Patient Education How to access health informa tion online - Detail Indication:Non-smoker Start:30-Aug-2018 Instruction Type:Patient Education Patient Instructions Indication:Non-smoker Start:30-Aug-2018 Instruction Type:Provider Instructions for Treatment How to access health informa tion online Indication:Non-smoker Start:27-Jul-2018 Instruction Type:Patient Education How to access health informa tion online - Detail Indication:Non-smoker Start:27-Jul-2018 Instruction Type:Patient Education Patient Instructions Indication:Non-smoker Start:27-Jul-2018 Instruction Type:Provider Instructions for Treatment Patient Instructions Indication:Breast cancer screening Start:08-Jun-2018 Instruction Type:Provider Instructions for Treatment How to access health informa tion online Indication:Osteopenia Start:08-Jun-2018 Instruction Type:Patient Education How to access health informa tion online - Detail Indication:Osteopenia Start:08-Jun-2018 Instruction Type:Patient Education How to access health informa tion online Indication:Cough Start:15-Aug-2017 Instruction Type:Patient Education How to access health informa tion online - Detail Indication:Cough Start:15-Aug-2017 Instruction Type:Patient Education Patient Instructions Indication:Cough Start:15-Aug-2017 Instruction Type:Provider Instructions for Treatment How to access health informa tion online Indication:Current non-smoker Start:28-Nov-2016 Instruction Type:Patient Education How to access health informa tion online - Detail Indication:Current non-smoker Start:28-Nov-2016 Instruction Type:Patient Education Patient Instructions Indication:Current non-smoker Start:28-Nov-2016 Instruction Type:Provider Instructions for Treatment How to access health informa tion online Indication:Cough Start:11-Oct-2016 Instruction Type:Patient Education How to access health informa tion online - Detail Indication:Cough Start:11-Oct-2016 Instruction Type:Patient Education Patient Instructions Indication:Cough Start:11-Oct-2016 Instruction Type:Provider Instructions for Treatment How to access health informa tion online Indication:Vitamin D deficiency, unspecified Start:12-Jul-2016 Instruction Type:Patient Education How to access health informa tion online - Detail Indication:Vitamin D deficiency, unspecified Start:12-Jul-2016 Instruction Type:Patient Education Patient Instructions Indication:Vitamin D deficiency, unspecified Start:12-Jul-2016 Instruction Type:Provider Instructions for Treatment How to access health informa tion online 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-2016 Instruction Type:Patient Education How to access health informa tion online - Detail 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-2016 Instruction Type:Patient Education Patient Instructions 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-2016 Instruction Type:Provider Instructions for Treatment How to access health informa tion online Indication:Recurrent cold sores Start:12-Nov-2014 Instruction Type:Patient Education How to access health informa tion online - Detail Indication:Recurrent cold sores Start:12-Nov-2014 Instruction Type:Patient Education [facility]; [facility] Work Phone: Instructions* Name Dates Details Patient Instructions Indication:BMI 21.0-21.9, adult Start:01-Aug-2022 Instruction Type:Provider Instructions for Treatment How to Access Health Informa tion Online using Patient Portal and [employer] Apps Indication:BMI 21.0-21.9, adult Start:01-Aug-2022 Instruction Type:Patient Education Patient Instructions Indication:Non-smoker Start:28-Jan-2022 Instruction Type:Provider Instructions for Treatment How to Access Health Informa tion Online using Patient Portal and [employer] Apps Indication:Non-smoker Start:28-Jan-2022 Instruction Type:Patient Education Patient Instructions Indication:Cough Start:16-Aug-2021 Instruction Type:Provider Instructions for Treatment How to Access Health Informa tion Online using Patient Portal and [employer] Apps Indication:Cough Start:16-Aug-2021 Instruction Type:Patient Education Patient Instructions Indication:Non-smoker Start:09-Aug-2021 Instruction Type:Provider Instructions for Treatment How to Access Health Informa tion Online using Patient Portal and [employer] Apps Indication:Non-smoker Start:09-Aug-2021 Instruction Type:Patient Education Patient Instructions Indication:Bronchitis Start:26-Jul-2021 Instruction Type:Provider Instructions for Treatment How to Access Health Informa tion Online using Patient Portal and [employer] Apps Indication:Bronchitis Start:26-Jul-2021 Instruction Type:Patient Education How to Access Health Informa tion Online using Patient Portal and [employer] Apps Indication:Non-smoker Start:22-Apr-2021 Instruction Type:Patient Education Patient Instructions Indication:Non-smoker Start:22-Apr-2021 Instruction Type:Provider Instructions for Treatment How to Access Health Informa tion Online using Patient Portal and [employer] Apps Indication:Non-smoker Start:08-Apr-2021 Instruction Type:Patient Education Patient Instructions Indication:Non-smoker Start:08-Apr-2021 Instruction Type:Provider Instructions for Treatment How to Access Health Informa tion Online using Patient Portal and [employer] Apps Indication:Non-smoker Start:12-Mar-2021 Instruction Type:Patient Education Patient Instructions Indication:Non-smoker Start:12-Mar-2021 Instruction Type:Provider Instructions for Treatment How to access health informa tion online Indication:Non-smoker Start:30-Aug-2018 Instruction Type:Patient Education How to access health informa tion online - Detail Indication:Non-smoker Start:30-Aug-2018 Instruction Type:Patient Education Patient Instructions Indication:Non-smoker Start:30-Aug-2018 Instruction Type:Provider Instructions for Treatment How to access health informa tion online Indication:Non-smoker Start:27-Jul-2018 Instruction Type:Patient Education How to access health informa tion online - Detail Indication:Non-smoker Start:27-Jul-2018 Instruction Type:Patient Education Patient Instructions Indication:Non-smoker Start:27-Jul-2018 Instruction Type:Provider Instructions for Treatment Patient Instructions Indication:Breast cancer screening Start:08-Jun-2018 Instruction Type:Provider Instructions for Treatment How to access health informa tion online Indication:Osteopenia Start:08-Jun-2018 Instruction Type:Patient Education How to access health informa tion online - Detail Indication:Osteopenia Start:08-Jun-2018 Instruction Type:Patient Education How to access health informa tion online Indication:Cough Start:15-Aug-2017 Instruction Type:Patient Education How to access health informa tion online - Detail Indication:Cough Start:15-Aug-2017 Instruction Type:Patient Education Patient Instructions Indication:Cough Start:15-Aug-2017 Instruction Type:Provider Instructions for Treatment How to access health informa tion online Indication:Current non-smoker Start:28-Nov-2016 Instruction Type:Patient Education How to access health informa tion online - Detail Indication:Current non-smoker Start:28-Nov-2016 Instruction Type:Patient Education Patient Instructions Indication:Current non-smoker Start:28-Nov-2016 Instruction Type:Provider Instructions for Treatment How to access health informa tion online Indication:Cough Start:11-Oct-2016 Instruction Type:Patient Education How to access health informa tion online - Detail Indication:Cough Start:11-Oct-2016 Instruction Type:Patient Education Patient Instructions Indication:Cough Start:11-Oct-2016 Instruction Type:Provider Instructions for Treatment How to access health informa tion online Indication:Vitamin D deficiency, unspecified Start:12-Jul-2016 Instruction Type:Patient Education How to access health informa tion online - Detail Indication:Vitamin D deficiency, unspecified Start:12-Jul-2016 Instruction Type:Patient Education Patient Instructions Indication:Vitamin D deficiency, unspecified Start:12-Jul-2016 Instruction Type:Provider Instructions for Treatment How to access health informa tion online 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-2016 Instruction Type:Patient Education How to access health informa tion online - Detail 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-2016 Instruction Type:Patient Education Patient Instructions 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-2016 Instruction Type:Provider Instructions for Treatment How to access health informa tion online Indication:Recurrent cold sores Start:12-Nov-2014 Instruction Type:Patient Education How to access health informa tion online - Detail Indication:Recurrent cold sores Start:12-Nov-2014 Instruction Type:Patient Education [facility]; [facility] Work Phone: Instructions* Name Dates Details Patient Instructions Indication:Non-smoker Start:15-Sep-2022 Instruction Type:Provider Instructions for Treatment How to Access Health Informa tion Online using Patient Portal and [employer] Apps Indication:Non-smoker Start:15-Sep-2022 Instruction Type:Patient Education Patient Instructions Indication:BMI 21.0-21.9, adult Start:01-Aug-2022 Instruction Type:Provider Instructions for Treatment How to Access Health Informa tion Online using Patient Portal and [employer] Apps Indication:BMI 21.0-21.9, adult Start:01-Aug-2022 Instruction Type:Patient Education Patient Instructions Indication:Non-smoker Start:28-Jan-2022 Instruction Type:Provider Instructions for Treatment How to Access Health Informa tion Online using Patient Portal and [employer] Apps Indication:Non-smoker Start:28-Jan-2022 Instruction Type:Patient Education Patient Instructions Indication:Cough Start:16-Aug-2021 Instruction Type:Provider Instructions for Treatment How to Access Health Informa tion Online using Patient Portal and [employer] Apps Indication:Cough Start:16-Aug-2021 Instruction Type:Patient Education Patient Instructions Indication:Non-smoker Start:09-Aug-2021 Instruction Type:Provider Instructions for Treatment How to Access Health Informa tion Online using Patient Portal and [employer] Apps Indication:Non-smoker Start:09-Aug-2021 Instruction Type:Patient Education Patient Instructions Indication:Bronchitis Start:26-Jul-2021 Instruction Type:Provider Instructions for Treatment How to Access Health Informa tion Online using Patient Portal and [employer] Apps Indication:Bronchitis Start:26-Jul-2021 Instruction Type:Patient Education How to Access Health Informa tion Online using Patient Portal and [employer] Apps Indication:Non-smoker Start:22-Apr-2021 Instruction Type:Patient Education Patient Instructions Indication:Non-smoker Start:22-Apr-2021 Instruction Type:Provider Instructions for Treatment How to Access Health Informa tion Online using Patient Portal and [employer] Apps Indication:Non-smoker Start:08-Apr-2021 Instruction Type:Patient Education Patient Instructions Indication:Non-smoker Start:08-Apr-2021 Instruction Type:Provider Instructions for Treatment How to Access Health Informa tion Online using Patient Portal and [employer] Apps Indication:Non-smoker Start:12-Mar-2021 Instruction Type:Patient Education Patient Instructions Indication:Non-smoker Start:12-Mar-2021 Instruction Type:Provider Instructions for Treatment How to access health informa tion online Indication:Non-smoker Start:30-Aug-2018 Instruction Type:Patient Education How to access health informa tion online - Detail Indication:Non-smoker Start:30-Aug-2018 Instruction Type:Patient Education Patient Instructions Indication:Non-smoker Start:30-Aug-2018 Instruction Type:Provider Instructions for Treatment How to access health informa tion online Indication:Non-smoker Start:27-Jul-2018 Instruction Type:Patient Education How to access health informa tion online - Detail Indication:Non-smoker Start:27-Jul-2018 Instruction Type:Patient Education Patient Instructions Indication:Non-smoker Start:27-Jul-2018 Instruction Type:Provider Instructions for Treatment Patient Instructions Indication:Breast cancer screening Start:08-Jun-2018 Instruction Type:Provider Instructions for Treatment How to access health informa tion online Indication:Osteopenia Start:08-Jun-2018 Instruction Type:Patient Education How to access health informa tion online - Detail Indication:Osteopenia Start:08-Jun-2018 Instruction Type:Patient Education How to access health informa tion online Indication:Cough Start:15-Aug-2017 Instruction Type:Patient Education How to access health informa tion online - Detail Indication:Cough Start:15-Aug-2017 Instruction Type:Patient Education Patient Instructions Indication:Cough Start:15-Aug-2017 Instruction Type:Provider Instructions for Treatment How to access health informa tion online Indication:Current non-smoker Start:28-Nov-2016 Instruction Type:Patient Education How to access health informa tion online - Detail Indication:Current non-smoker Start:28-Nov-2016 Instruction Type:Patient Education Patient Instructions Indication:Current non-smoker Start:28-Nov-2016 Instruction Type:Provider Instructions for Treatment How to access health informa tion online Indication:Cough Start:11-Oct-2016 Instruction Type:Patient Education How to access health informa tion online - Detail Indication:Cough Start:11-Oct-2016 Instruction Type:Patient Education Patient Instructions Indication:Cough Start:11-Oct-2016 Instruction Type:Provider Instructions for Treatment How to access health informa tion online Indication:Vitamin D deficiency, unspecified Start:12-Jul-2016 Instruction Type:Patient Education How to access health informa tion online - Detail Indication:Vitamin D deficiency, unspecified Start:12-Jul-2016 Instruction Type:Patient Education Patient Instructions Indication:Vitamin D deficiency, unspecified Start:12-Jul-2016 Instruction Type:Provider Instructions for Treatment How to access health informa tion online 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-2016 Instruction Type:Patient Education How to access health informa tion online - Detail 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-2016 Instruction Type:Patient Education Patient Instructions 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-2016 Instruction Type:Provider Instructions for Treatment How to access health informa tion online Indication:Recurrent cold sores Start:12-Nov-2014 Instruction Type:Patient Education How to access health informa tion online - Detail Indication:Recurrent cold sores Start:12-Nov-2014 Instruction Type:Patient Education [facility]; [facility] Work Phone: Instructions* Name Dates Details Patient Instructions Indication:Non-smoker Start:15-Sep-2022 Instruction Type:Provider Instructions for Treatment How to Access Health Informa tion Online using Patient Portal and [employer] Apps Indication:Non-smoker Start:15-Sep-2022 Instruction Type:Patient Education Patient Instructions Indication:BMI 21.0-21.9, adult Start:01-Aug-2022 Instruction Type:Provider Instructions for Treatment How to Access Health Informa tion Online using Patient Portal and [employer] Apps Indication:BMI 21.0-21.9, adult Start:01-Aug-2022 Instruction Type:Patient Education Patient Instructions Indication:Non-smoker Start:28-Jan-2022 Instruction Type:Provider Instructions for Treatment How to Access Health Informa tion Online using Patient Portal and [employer] Apps Indication:Non-smoker Start:28-Jan-2022 Instruction Type:Patient Education Patient Instructions Indication:Cough Start:16-Aug-2021 Instruction Type:Provider Instructions for Treatment How to Access Health Informa tion Online using Patient Portal and [employer] Apps Indication:Cough Start:16-Aug-2021 Instruction Type:Patient Education Patient Instructions Indication:Non-smoker Start:09-Aug-2021 Instruction Type:Provider Instructions for Treatment How to Access Health Informa tion Online using Patient Portal and [employer] Apps Indication:Non-smoker Start:09-Aug-2021 Instruction Type:Patient Education Patient Instructions Indication:Bronchitis Start:26-Jul-2021 Instruction Type:Provider Instructions for Treatment How to Access Health Informa tion Online using Patient Portal and [employer] Apps Indication:Bronchitis Start:26-Jul-2021 Instruction Type:Patient Education How to Access Health Informa tion Online using Patient Portal and [employer] Apps Indication:Non-smoker Start:22-Apr-2021 Instruction Type:Patient Education Patient Instructions Indication:Non-smoker Start:22-Apr-2021 Instruction Type:Provider Instructions for Treatment How to Access Health Informa tion Online using Patient Portal and [employer] Apps Indication:Non-smoker Start:08-Apr-2021 Instruction Type:Patient Education Patient Instructions Indication:Non-smoker Start:08-Apr-2021 Instruction Type:Provider Instructions for Treatment How to Access Health Informa tion Online using Patient Portal and [employer] Apps Indication:Non-smoker Start:12-Mar-2021 Instruction Type:Patient Education Patient Instructions Indication:Non-smoker Start:12-Mar-2021 Instruction Type:Provider Instructions for Treatment How to access health informa tion online Indication:Non-smoker Start:30-Aug-2018 Instruction Type:Patient Education How to access health informa tion online - Detail Indication:Non-smoker Start:30-Aug-2018 Instruction Type:Patient Education Patient Instructions Indication:Non-smoker Start:30-Aug-2018 Instruction Type:Provider Instructions for Treatment How to access health informa tion online Indication:Non-smoker Start:27-Jul-2018 Instruction Type:Patient Education How to access health informa tion online - Detail Indication:Non-smoker Start:27-Jul-2018 Instruction Type:Patient Education Patient Instructions Indication:Non-smoker Start:27-Jul-2018 Instruction Type:Provider Instructions for Treatment Patient Instructions Indication:Breast cancer screening Start:08-Jun-2018 Instruction Type:Provider Instructions for Treatment How to access health informa tion online Indication:Osteopenia Start:08-Jun-2018 Instruction Type:Patient Education How to access health informa tion online - Detail Indication:Osteopenia Start:08-Jun-2018 Instruction Type:Patient Education How to access health informa tion online Indication:Cough Start:15-Aug-2017 Instruction Type:Patient Education How to access health informa tion online - Detail Indication:Cough Start:15-Aug-2017 Instruction Type:Patient Education Patient Instructions Indication:Cough Start:15-Aug-2017 Instruction Type:Provider Instructions for Treatment How to access health informa tion online Indication:Current non-smoker Start:28-Nov-2016 Instruction Type:Patient Education How to access health informa tion online - Detail Indication:Current non-smoker Start:28-Nov-2016 Instruction Type:Patient Education Patient Instructions Indication:Current non-smoker Start:28-Nov-2016 Instruction Type:Provider Instructions for Treatment How to access health informa tion online Indication:Cough Start:11-Oct-2016 Instruction Type:Patient Education How to access health informa tion online - Detail Indication:Cough Start:11-Oct-2016 Instruction Type:Patient Education Patient Instructions Indication:Cough Start:11-Oct-2016 Instruction Type:Provider Instructions for Treatment How to access health informa tion online Indication:Vitamin D deficiency, unspecified Start:12-Jul-2016 Instruction Type:Patient Education How to access health informa tion online - Detail Indication:Vitamin D deficiency, unspecified Start:12-Jul-2016 Instruction Type:Patient Education Patient Instructions Indication:Vitamin D deficiency, unspecified Start:12-Jul-2016 Instruction Type:Provider Instructions for Treatment How to access health informa tion online 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-2016 Instruction Type:Patient Education How to access health informa tion online - Detail 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-2016 Instruction Type:Patient Education Patient Instructions 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-2016 Instruction Type:Provider Instructions for Treatment How to access health informa tion online Indication:Recurrent cold sores Start:12-Nov-2014 Instruction Type:Patient Education How to access health informa tion online - Detail Indication:Recurrent cold sores Start:12-Nov-2014 Instruction Type:Patient Education [facility]; [facility] Work Phone: Instructions* Name Dates Details Patient Instructions Indication:Non-smoker Start:15-Sep-2022 Instruction Type:Provider Instructions for Treatment How to Access Health Informa tion Online using Patient Portal and [employer] Apps Indication:Non-smoker Start:15-Sep-2022 Instruction Type:Patient Education Patient Instructions Indication:BMI 21.0-21.9, adult Start:01-Aug-2022 Instruction Type:Provider Instructions for Treatment How to Access Health Informa tion Online using Patient Portal and [employer] Apps Indication:BMI 21.0-21.9, adult Start:01-Aug-2022 Instruction Type:Patient Education Patient Instructions Indication:Non-smoker Start:28-Jan-2022 Instruction Type:Provider Instructions for Treatment How to Access Health Informa tion Online using Patient Portal and [employer] Apps Indication:Non-smoker Start:28-Jan-2022 Instruction Type:Patient Education Patient Instructions Indication:Cough Start:16-Aug-2021 Instruction Type:Provider Instructions for Treatment How to Access Health Informa tion Online using Patient Portal and [employer] Apps Indication:Cough Start:16-Aug-2021 Instruction Type:Patient Education Patient Instructions Indication:Non-smoker Start:09-Aug-2021 Instruction Type:Provider Instructions for Treatment How to Access Health Informa tion Online using Patient Portal and [employer] Apps Indication:Non-smoker Start:09-Aug-2021 Instruction Type:Patient Education Patient Instructions Indication:Bronchitis Start:26-Jul-2021 Instruction Type:Provider Instructions for Treatment How to Access Health Informa tion Online using Patient Portal and [employer] Apps Indication:Bronchitis Start:26-Jul-2021 Instruction Type:Patient Education How to Access Health Informa tion Online using Patient Portal and [employer] Apps Indication:Non-smoker Start:22-Apr-2021 Instruction Type:Patient Education Patient Instructions Indication:Non-smoker Start:22-Apr-2021 Instruction Type:Provider Instructions for Treatment How to Access Health Informa tion Online using Patient Portal and [employer] Apps Indication:Non-smoker Start:08-Apr-2021 Instruction Type:Patient Education Patient Instructions Indication:Non-smoker Start:08-Apr-2021 Instruction Type:Provider Instructions for Treatment How to Access Health Informa tion Online using Patient Portal and [employer] Apps Indication:Non-smoker Start:12-Mar-2021 Instruction Type:Patient Education Patient Instructions Indication:Non-smoker Start:12-Mar-2021 Instruction Type:Provider Instructions for Treatment How to access health informa tion online Indication:Non-smoker Start:30-Aug-2018 Instruction Type:Patient Education How to access health informa tion online - Detail Indication:Non-smoker Start:30-Aug-2018 Instruction Type:Patient Education Patient Instructions Indication:Non-smoker Start:30-Aug-2018 Instruction Type:Provider Instructions for Treatment How to access health informa tion online Indication:Non-smoker Start:27-Jul-2018 Instruction Type:Patient Education How to access health informa tion online - Detail Indication:Non-smoker Start:27-Jul-2018 Instruction Type:Patient Education Patient Instructions Indication:Non-smoker Start:27-Jul-2018 Instruction Type:Provider Instructions for Treatment Patient Instructions Indication:Breast cancer screening Start:08-Jun-2018 Instruction Type:Provider Instructions for Treatment How to access health informa tion online Indication:Osteopenia Start:08-Jun-2018 Instruction Type:Patient Education How to access health informa tion online - Detail Indication:Osteopenia Start:08-Jun-2018 Instruction Type:Patient Education How to access health informa tion online Indication:Cough Start:15-Aug-2017 Instruction Type:Patient Education How to access health informa tion online - Detail Indication:Cough Start:15-Aug-2017 Instruction Type:Patient Education Patient Instructions Indication:Cough Start:15-Aug-2017 Instruction Type:Provider Instructions for Treatment How to access health informa tion online Indication:Current non-smoker Start:28-Nov-2016 Instruction Type:Patient Education How to access health informa tion online - Detail Indication:Current non-smoker Start:28-Nov-2016 Instruction Type:Patient Education Patient Instructions Indication:Current non-smoker Start:28-Nov-2016 Instruction Type:Provider Instructions for Treatment How to access health informa tion online Indication:Cough Start:11-Oct-2016 Instruction Type:Patient Education How to access health informa tion online - Detail Indication:Cough Start:11-Oct-2016 Instruction Type:Patient Education Patient Instructions Indication:Cough Start:11-Oct-2016 Instruction Type:Provider Instructions for Treatment How to access health informa tion online Indication:Vitamin D deficiency, unspecified Start:12-Jul-2016 Instruction Type:Patient Education How to access health informa tion online - Detail Indication:Vitamin D deficiency, unspecified Start:12-Jul-2016 Instruction Type:Patient Education Patient Instructions Indication:Vitamin D deficiency, unspecified Start:12-Jul-2016 Instruction Type:Provider Instructions for Treatment How to access health informa tion online 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-2016 Instruction Type:Patient Education How to access health informa tion online - Detail 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-2016 Instruction Type:Patient Education Patient Instructions 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-2016 Instruction Type:Provider Instructions for Treatment How to access health informa tion online Indication:Recurrent cold sores Start:12-Nov-2014 Instruction Type:Patient Education How to access health informa tion online - Detail Indication:Recurrent cold sores Start:12-Nov-2014 Instruction Type:Patient Education [facility]; [facility] Work Phone: Instructions* Name Dates Details Patient Instructions Indication:Non-smoker Start:21-Sep-2022 Instruction Type:Provider Instructions for Treatment How to Access Health Informa tion Online using Patient Portal and [employer] Apps Indication:Non-smoker Start:21-Sep-2022 Instruction Type:Patient Education Patient Instructions Indication:Non-smoker Start:15-Sep-2022 Instruction Type:Provider Instructions for Treatment How to Access Health Informa tion Online using Patient Portal and [employer] Apps Indication:Non-smoker Start:15-Sep-2022 Instruction Type:Patient Education Patient Instructions Indication:BMI 21.0-21.9, adult Start:01-Aug-2022 Instruction Type:Provider Instructions for Treatment How to Access Health Informa tion Online using Patient Portal and [employer] Apps Indication:BMI 21.0-21.9, adult Start:01-Aug-2022 Instruction Type:Patient Education Patient Instructions Indication:Non-smoker Start:28-Jan-2022 Instruction Type:Provider Instructions for Treatment How to Access Health Informa tion Online using Patient Portal and [employer] Apps Indication:Non-smoker Start:28-Jan-2022 Instruction Type:Patient Education Patient Instructions Indication:Cough Start:16-Aug-2021 Instruction Type:Provider Instructions for Treatment How to Access Health Informa tion Online using Patient Portal and [employer] Apps Indication:Cough Start:16-Aug-2021 Instruction Type:Patient Education Patient Instructions Indication:Non-smoker Start:09-Aug-2021 Instruction Type:Provider Instructions for Treatment How to Access Health Informa tion Online using Patient Portal and [employer] Apps Indication:Non-smoker Start:09-Aug-2021 Instruction Type:Patient Education Patient Instructions Indication:Bronchitis Start:26-Jul-2021 Instruction Type:Provider Instructions for Treatment How to Access Health Informa tion Online using Patient Portal and [employer] Apps Indication:Bronchitis Start:26-Jul-2021 Instruction Type:Patient Education How to Access Health Informa tion Online using Patient Portal and [employer] Apps Indication:Non-smoker Start:22-Apr-2021 Instruction Type:Patient Education Patient Instructions Indication:Non-smoker Start:22-Apr-2021 Instruction Type:Provider Instructions for Treatment How to Access Health Informa tion Online using Patient Portal and [employer] Apps Indication:Non-smoker Start:08-Apr-2021 Instruction Type:Patient Education Patient Instructions Indication:Non-smoker Start:08-Apr-2021 Instruction Type:Provider Instructions for Treatment How to Access Health Informa tion Online using Patient Portal and [employer] Apps Indication:Non-smoker Start:12-Mar-2021 Instruction Type:Patient Education Patient Instructions Indication:Non-smoker Start:12-Mar-2021 Instruction Type:Provider Instructions for Treatment How to access health informa tion online Indication:Non-smoker Start:30-Aug-2018 Instruction Type:Patient Education How to access health informa tion online - Detail Indication:Non-smoker Start:30-Aug-2018 Instruction Type:Patient Education Patient Instructions Indication:Non-smoker Start:30-Aug-2018 Instruction Type:Provider Instructions for Treatment How to access health informa tion online Indication:Non-smoker Start:27-Jul-2018 Instruction Type:Patient Education How to access health informa tion online - Detail Indication:Non-smoker Start:27-Jul-2018 Instruction Type:Patient Education Patient Instructions Indication:Non-smoker Start:27-Jul-2018 Instruction Type:Provider Instructions for Treatment Patient Instructions Indication:Breast cancer screening Start:08-Jun-2018 Instruction Type:Provider Instructions for Treatment How to access health informa tion online Indication:Osteopenia Start:08-Jun-2018 Instruction Type:Patient Education How to access health informa tion online - Detail Indication:Osteopenia Start:08-Jun-2018 Instruction Type:Patient Education How to access health informa tion online Indication:Cough Start:15-Aug-2017 Instruction Type:Patient Education How to access health informa tion online - Detail Indication:Cough Start:15-Aug-2017 Instruction Type:Patient Education Patient Instructions Indication:Cough Start:15-Aug-2017 Instruction Type:Provider Instructions for Treatment How to access health informa tion online Indication:Current non-smoker Start:28-Nov-2016 Instruction Type:Patient Education How to access health informa tion online - Detail Indication:Current non-smoker Start:28-Nov-2016 Instruction Type:Patient Education Patient Instructions Indication:Current non-smoker Start:28-Nov-2016 Instruction Type:Provider Instructions for Treatment How to access health informa tion online Indication:Cough Start:11-Oct-2016 Instruction Type:Patient Education How to access health informa tion online - Detail Indication:Cough Start:11-Oct-2016 Instruction Type:Patient Education Patient Instructions Indication:Cough Start:11-Oct-2016 Instruction Type:Provider Instructions for Treatment How to access health informa tion online Indication:Vitamin D deficiency, unspecified Start:12-Jul-2016 Instruction Type:Patient Education How to access health informa tion online - Detail Indication:Vitamin D deficiency, unspecified Start:12-Jul-2016 Instruction Type:Patient Education Patient Instructions Indication:Vitamin D deficiency, unspecified Start:12-Jul-2016 Instruction Type:Provider Instructions for Treatment How to access health informa tion online 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-2016 Instruction Type:Patient Education How to access health informa tion online - Detail 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-2016 Instruction Type:Patient Education Patient Instructions 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-2016 Instruction Type:Provider Instructions for Treatment How to access health informa tion online Indication:Recurrent cold sores Start:12-Nov-2014 Instruction Type:Patient Education How to access health informa tion online - Detail Indication:Recurrent cold sores Start:12-Nov-2014 Instruction Type:Patient Education [facility]; [facility] Work Phone: Instructions* Name Dates Details Patient Instructions Indication:Non-smoker Start:21-Sep-2022 Instruction Type:Provider Instructions for Treatment How to Access Health Informa tion Online using Patient Portal and [employer] Apps Indication:Non-smoker Start:21-Sep-2022 Instruction Type:Patient Education Patient Instructions Indication:Non-smoker Start:15-Sep-2022 Instruction Type:Provider Instructions for Treatment How to Access Health Informa tion Online using Patient Portal and [employer] Apps Indication:Non-smoker Start:15-Sep-2022 Instruction Type:Patient Education Patient Instructions Indication:BMI 21.0-21.9, adult Start:01-Aug-2022 Instruction Type:Provider Instructions for Treatment How to Access Health Informa tion Online using Patient Portal and [employer] Apps Indication:BMI 21.0-21.9, adult Start:01-Aug-2022 Instruction Type:Patient Education Patient Instructions Indication:Non-smoker Start:28-Jan-2022 Instruction Type:Provider Instructions for Treatment How to Access Health Informa tion Online using Patient Portal and [employer] Apps Indication:Non-smoker Start:28-Jan-2022 Instruction Type:Patient Education Patient Instructions Indication:Cough Start:16-Aug-2021 Instruction Type:Provider Instructions for Treatment How to Access Health Informa tion Online using Patient Portal and [employer] Apps Indication:Cough Start:16-Aug-2021 Instruction Type:Patient Education Patient Instructions Indication:Non-smoker Start:09-Aug-2021 Instruction Type:Provider Instructions for Treatment How to Access Health Informa tion Online using Patient Portal and [employer] Apps Indication:Non-smoker Start:09-Aug-2021 Instruction Type:Patient Education Patient Instructions Indication:Bronchitis Start:26-Jul-2021 Instruction Type:Provider Instructions for Treatment How to Access Health Informa tion Online using Patient Portal and [employer] Apps Indication:Bronchitis Start:26-Jul-2021 Instruction Type:Patient Education How to Access Health Informa tion Online using Patient Portal and [employer] Apps Indication:Non-smoker Start:22-Apr-2021 Instruction Type:Patient Education Patient Instructions Indication:Non-smoker Start:22-Apr-2021 Instruction Type:Provider Instructions for Treatment How to Access Health Informa tion Online using Patient Portal and [employer] Apps Indication:Non-smoker Start:08-Apr-2021 Instruction Type:Patient Education Patient Instructions Indication:Non-smoker Start:08-Apr-2021 Instruction Type:Provider Instructions for Treatment How to Access Health Informa tion Online using Patient Portal and [employer] Apps Indication:Non-smoker Start:12-Mar-2021 Instruction Type:Patient Education Patient Instructions Indication:Non-smoker Start:12-Mar-2021 Instruction Type:Provider Instructions for Treatment How to access health informa tion online Indication:Non-smoker Start:30-Aug-2018 Instruction Type:Patient Education How to access health informa tion online - Detail Indication:Non-smoker Start:30-Aug-2018 Instruction Type:Patient Education Patient Instructions Indication:Non-smoker Start:30-Aug-2018 Instruction Type:Provider Instructions for Treatment How to access health informa tion online Indication:Non-smoker Start:27-Jul-2018 Instruction Type:Patient Education How to access health informa tion online - Detail Indication:Non-smoker Start:27-Jul-2018 Instruction Type:Patient Education Patient Instructions Indication:Non-smoker Start:27-Jul-2018 Instruction Type:Provider Instructions for Treatment Patient Instructions Indication:Breast cancer screening Start:08-Jun-2018 Instruction Type:Provider Instructions for Treatment How to access health informa tion online Indication:Osteopenia Start:08-Jun-2018 Instruction Type:Patient Education How to access health informa tion online - Detail Indication:Osteopenia Start:08-Jun-2018 Instruction Type:Patient Education How to access health informa tion online Indication:Cough Start:15-Aug-2017 Instruction Type:Patient Education How to access health informa tion online - Detail Indication:Cough Start:15-Aug-2017 Instruction Type:Patient Education Patient Instructions Indication:Cough Start:15-Aug-2017 Instruction Type:Provider Instructions for Treatment How to access health informa tion online Indication:Current non-smoker Start:28-Nov-2016 Instruction Type:Patient Education How to access health informa tion online - Detail Indication:Current non-smoker Start:28-Nov-2016 Instruction Type:Patient Education Patient Instructions Indication:Current non-smoker Start:28-Nov-2016 Instruction Type:Provider Instructions for Treatment How to access health informa tion online Indication:Cough Start:11-Oct-2016 Instruction Type:Patient Education How to access health informa tion online - Detail Indication:Cough Start:11-Oct-2016 Instruction Type:Patient Education Patient Instructions Indication:Cough Start:11-Oct-2016 Instruction Type:Provider Instructions for Treatment How to access health informa tion online Indication:Vitamin D deficiency, unspecified Start:12-Jul-2016 Instruction Type:Patient Education How to access health informa tion online - Detail Indication:Vitamin D deficiency, unspecified Start:12-Jul-2016 Instruction Type:Patient Education Patient Instructions Indication:Vitamin D deficiency, unspecified Start:12-Jul-2016 Instruction Type:Provider Instructions for Treatment How to access health informa tion online 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-2016 Instruction Type:Patient Education How to access health informa tion online - Detail 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-2016 Instruction Type:Patient Education Patient Instructions 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-2016 Instruction Type:Provider Instructions for Treatment How to access health informa tion online Indication:Recurrent cold sores Start:12-Nov-2014 Instruction Type:Patient Education How to access health informa tion online - Detail Indication:Recurrent cold sores Start:12-Nov-2014 Instruction Type:Patient Education [facility]; [facility] Work Phone: Instructions* Name Dates Details How to Access Health Informa tion Online using Patient Portal and [employer] Indication:Non-smoker Start:31-Jul-2023 Instruction Type:Patient Education Patient Instructions Indication:Non-smoker Start:31-Jul-2023 Instruction Type:Provider Instructions for Treatment Patient Instructions Indication:Non-smoker Start:21-Sep-2022 Instruction Type:Provider Instructions for Treatment How to Access Health Informa tion Online using Patient Portal and [employer] Indication:Non-smoker Start:21-Sep-2022 Instruction Type:Patient Education Patient Instructions Indication:Non-smoker Start:15-Sep-2022 Instruction Type:Provider Instructions for Treatment How to Access Health Informa tion Online using Patient Portal and [employer] Indication:Non-smoker Start:15-Sep-2022 Instruction Type:Patient Education Patient Instructions Indication:BMI 21.0-21.9, adult Start:01-Aug-2022 Instruction Type:Provider Instructions for Treatment How to Access Health Informa tion Online using Patient Portal and [employer] Indication:BMI 21.0-21.9, adult Start:01-Aug-2022 Instruction Type:Patient Education Patient Instructions Indication:Non-smoker Start:28-Jan-2022 Instruction Type:Provider Instructions for Treatment How to Access Health Informa tion Online using Patient Portal and [employer] Indication:Non-smoker Start:28-Jan-2022 Instruction Type:Patient Education Patient Instructions Indication:Cough Start:16-Aug-2021 Instruction Type:Provider Instructions for Treatment How to Access Health Informa tion Online using Patient Portal and [employer] Apps Indication:Cough Start:16-Aug-2021 Instruction Type:Patient Education Patient Instructions Indication:Non-smoker Start:09-Aug-2021 Instruction Type:Provider Instructions for Treatment How to Access Health Informa tion Online using Patient Portal and [employer] Indication:Non-smoker Start:09-Aug-2021 Instruction Type:Patient Education Patient Instructions Indication:Bronchitis Start:26-Jul-2021 Instruction Type:Provider Instructions for Treatment How to Access Health Informa tion Online using Patient Portal and [employer] Indication:Bronchitis Start:26-Jul-2021 Instruction Type:Patient Education How to Access Health Informa tion Online using Patient Portal and [employer] Apps Indication:Non-smoker Start:22-Apr-2021 Instruction Type:Patient Education Patient Instructions Indication:Non-smoker Start:22-Apr-2021 Instruction Type:Provider Instructions for Treatment How to Access Health Informa tion Online using Patient Portal and [employer] Indication:Non-smoker Start:08-Apr-2021 Instruction Type:Patient Education Patient Instructions Indication:Non-smoker Start:08-Apr-2021 Instruction Type:Provider Instructions for Treatment How to Access Health Informa tion Online using Patient Portal and [employer] Indication:Non-smoker Start:12-Mar-2021 Instruction Type:Patient Education Patient Instructions Indication:Non-smoker Start:12-Mar-2021 Instruction Type:Provider Instructions for Treatment How to access health informa tion online Indication:Non-smoker Start:30-Aug-2018 Instruction Type:Patient Education How to access health informa tion online - Detail Indication:Non-smoker Start:30-Aug-2018 Instruction Type:Patient Education Patient Instructions Indication:Non-smoker Start:30-Aug-2018 Instruction Type:Provider Instructions for Treatment How to access health informa tion online Indication:Non-smoker Start:27-Jul-2018 Instruction Type:Patient Education How to access health informa tion online - Detail Indication:Non-smoker Start:27-Jul-2018 Instruction Type:Patient Education Patient Instructions Indication:Non-smoker Start:27-Jul-2018 Instruction Type:Provider Instructions for Treatment Patient Instructions Indication:Breast cancer screening Start:08-Jun-2018 Instruction Type:Provider Instructions for Treatment How to access health informa tion online Indication:Osteopenia Start:08-Jun-2018 Instruction Type:Patient Education How to access health informa tion online - Detail Indication:Osteopenia Start:08-Jun-2018 Instruction Type:Patient Education How to access health informa tion online Indication:Cough Start:15-Aug-2017 Instruction Type:Patient Education How to access health informa tion online - Detail Indication:Cough Start:15-Aug-2017 Instruction Type:Patient Education Patient Instructions Indication:Cough Start:15-Aug-2017 Instruction Type:Provider Instructions for Treatment How to access health informa tion online Indication:Current non-smoker Start:28-Nov-2016 Instruction Type:Patient Education How to access health informa tion online - Detail Indication:Current non-smoker Start:28-Nov-2016 Instruction Type:Patient Education Patient Instructions Indication:Current non-smoker Start:28-Nov-2016 Instruction Type:Provider Instructions for Treatment How to access health informa tion online Indication:Cough Start:11-Oct-2016 Instruction Type:Patient Education How to access health informa tion online - Detail Indication:Cough Start:11-Oct-2016 Instruction Type:Patient Education Patient Instructions Indication:Cough Start:11-Oct-2016 Instruction Type:Provider Instructions for Treatment How to access health informa tion online Indication:Vitamin D deficiency, unspecified Start:12-Jul-2016 Instruction Type:Patient Education How to access health informa tion online - Detail Indication:Vitamin D deficiency, unspecified Start:12-Jul-2016 Instruction Type:Patient Education Patient Instructions Indication:Vitamin D deficiency, unspecified Start:12-Jul-2016 Instruction Type:Provider Instructions for Treatment How to access health informa tion online 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-2016 Instruction Type:Patient Education How to access health informa tion online - Detail 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-2016 Instruction Type:Patient Education Patient Instructions 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-2016 Instruction Type:Provider Instructions for Treatment How to access health informa tion online Indication:Recurrent cold sores Start:12-Nov-2014 Instruction Type:Patient Education How to access health informa tion online - Detail Indication:Recurrent cold sores Start:12-Nov-2014 Instruction Type:Patient Education [facility]; [facility] Work Phone: Instructions* Name Dates Details How to Access Health Informa tion Online using Patient Portal and [employer] Indication:Non-smoker Start:31-Jul-2023 Instruction Type:Patient Education Patient Instructions Indication:Non-smoker Start:31-Jul-2023 Instruction Type:Provider Instructions for Treatment Patient Instructions Indication:Non-smoker Start:21-Sep-2022 Instruction Type:Provider Instructions for Treatment How to Access Health Informa tion Online using Patient Portal and [employer] Indication:Non-smoker Start:21-Sep-2022 Instruction Type:Patient Education Patient Instructions Indication:Non-smoker Start:15-Sep-2022 Instruction Type:Provider Instructions for Treatment How to Access Health Informa tion Online using Patient Portal and [employer] Indication:Non-smoker Start:15-Sep-2022 Instruction Type:Patient Education Patient Instructions Indication:BMI 21.0-21.9, adult Start:01-Aug-2022 Instruction Type:Provider Instructions for Treatment How to Access Health Informa tion Online using Patient Portal and [employer] Indication:BMI 21.0-21.9, adult Start:01-Aug-2022 Instruction Type:Patient Education Patient Instructions Indication:Non-smoker Start:28-Jan-2022 Instruction Type:Provider Instructions for Treatment How to Access Health Informa tion Online using Patient Portal and [employer] Indication:Non-smoker Start:28-Jan-2022 Instruction Type:Patient Education Patient Instructions Indication:Cough Start:16-Aug-2021 Instruction Type:Provider Instructions for Treatment How to Access Health Informa tion Online using Patient Portal and [employer] Indication:Cough Start:16-Aug-2021 Instruction Type:Patient Education Patient Instructions Indication:Non-smoker Start:09-Aug-2021 Instruction Type:Provider Instructions for Treatment How to Access Health Informa tion Online using Patient Portal and [employer] Indication:Non-smoker Start:09-Aug-2021 Instruction Type:Patient Education Patient Instructions Indication:Bronchitis Start:26-Jul-2021 Instruction Type:Provider Instructions for Treatment How to Access Health Informa tion Online using Patient Portal and [employer] Indication:Bronchitis Start:26-Jul-2021 Instruction Type:Patient Education How to Access Health Informa tion Online using Patient Portal and [employer] Apps Indication:Non-smoker Start:22-Apr-2021 Instruction Type:Patient Education Patient Instructions Indication:Non-smoker Start:22-Apr-2021 Instruction Type:Provider Instructions for Treatment How to Access Health Informa tion Online using Patient Portal and [employer] Indication:Non-smoker Start:08-Apr-2021 Instruction Type:Patient Education Patient Instructions Indication:Non-smoker Start:08-Apr-2021 Instruction Type:Provider Instructions for Treatment How to Access Health Informa tion Online using Patient Portal and [employer] Apps Indication:Non-smoker Start:12-Mar-2021 Instruction Type:Patient Education Patient Instructions Indication:Non-smoker Start:12-Mar-2021 Instruction Type:Provider Instructions for Treatment How to access health informa tion online Indication:Non-smoker Start:30-Aug-2018 Instruction Type:Patient Education How to access health informa tion online - Detail Indication:Non-smoker Start:30-Aug-2018 Instruction Type:Patient Education Patient Instructions Indication:Non-smoker Start:30-Aug-2018 Instruction Type:Provider Instructions for Treatment How to access health informa tion online Indication:Non-smoker Start:27-Jul-2018 Instruction Type:Patient Education How to access health informa tion online - Detail Indication:Non-smoker Start:27-Jul-2018 Instruction Type:Patient Education Patient Instructions Indication:Non-smoker Start:27-Jul-2018 Instruction Type:Provider Instructions for Treatment Patient Instructions Indication:Breast cancer screening Start:08-Jun-2018 Instruction Type:Provider Instructions for Treatment How to access health informa tion online Indication:Osteopenia Start:08-Jun-2018 Instruction Type:Patient Education How to access health informa tion online - Detail Indication:Osteopenia Start:08-Jun-2018 Instruction Type:Patient Education How to access health informa tion online Indication:Cough Start:15-Aug-2017 Instruction Type:Patient Education How to access health informa tion online - Detail Indication:Cough Start:15-Aug-2017 Instruction Type:Patient Education Patient Instructions Indication:Cough Start:15-Aug-2017 Instruction Type:Provider Instructions for Treatment How to access health informa tion online Indication:Current non-smoker Start:28-Nov-2016 Instruction Type:Patient Education How to access health informa tion online - Detail Indication:Current non-smoker Start:28-Nov-2016 Instruction Type:Patient Education Patient Instructions Indication:Current non-smoker Start:28-Nov-2016 Instruction Type:Provider Instructions for Treatment How to access health informa tion online Indication:Cough Start:11-Oct-2016 Instruction Type:Patient Education How to access health informa tion online - Detail Indication:Cough Start:11-Oct-2016 Instruction Type:Patient Education Patient Instructions Indication:Cough Start:11-Oct-2016 Instruction Type:Provider Instructions for Treatment How to access health informa tion online Indication:Vitamin D deficiency, unspecified Start:12-Jul-2016 Instruction Type:Patient Education How to access health informa tion online - Detail Indication:Vitamin D deficiency, unspecified Start:12-Jul-2016 Instruction Type:Patient Education Patient Instructions Indication:Vitamin D deficiency, unspecified Start:12-Jul-2016 Instruction Type:Provider Instructions for Treatment How to access health informa tion online 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-2016 Instruction Type:Patient Education How to access health informa tion online - Detail 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-2016 Instruction Type:Patient Education Patient Instructions 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-2016 Instruction Type:Provider Instructions for Treatment How to access health informa tion online Indication:Recurrent cold sores Start:12-Nov-2014 Instruction Type:Patient Education How to access health informa tion online - Detail Indication:Recurrent cold sores Start:12-Nov-2014 Instruction Type:Patient Education [facility]; [facility] Work Phone: reason for referral (narrative)* Outpatient Procedure (Routine) - Pending Review Specialty Diagnoses / Procedures Referred By Contyaima t Ref[facility] Diagnoses Coughing Procedures SPIROMETRY WITH DILATOR IF OBSTRUCTED BRNCDILAT RSPSE SPMTRY PRE&POST-BRNCDILAT Jennifer Mobley MD [address] [place] [address] Res[facility] [place] [address] [place] [address] Referral ID Status Reason Start Date Expiration Date Visits Requested Visits Authorized [id number] Pending Review Auto-Generat ed Referral 11/05/2021 12/04/2022 1 1 * Outpatient Procedure (Routine) - Pending Review Specialty Diagnoses / Procedures Referred By Contac t Referred To Contact [facility] Diagnoses Coughing Procedures NITRIC OXIDE, EXHALED NITRIC OXIDE GAS DETERMINATION Jennifer Gerard MD [address] [place] [address] [address] Referral ID Status Reason Start Date Expiration Date Visits Requested Visits Authorized [id number] Pending Review Auto-Generat ed Referral 11/05/2021 12/04/2022 1 1 [facility] for referral (narrative)* Outpatient Procedure (Routine) - Pending Review Specialty Diagnoses / Procedures Referred By Contac t Referred To Contact [facility] Diagnoses Shortness of breath Procedures SPIROMETRY WITH DILATOR IF OBSTRUCTED BRNCDILAT RSPSE SPMTRY PRE&POST-BRNCDILAT [facility] Migdalia Jane DO [address] [address] Res[facility] [place] [address] [place] [address] Referral ID Status Reason Start Date Expiration Date Visits Requested Visits Authorized [id number] Pending Review Auto-Generat ed Referral 04/13/2022 05/12/2023 1 1 * Outpatient Procedure (Routine) - Pending Review Specialty Diagnoses / Procedures Referred By Contac t Referred To [facility] [place] Diagnoses Shortness of breath Procedures NITRIC OXIDE, EXHALED NITRIC OXIDE GAS DETERMINATION Migdalia Jane DO [address] [address] Respiratory [place] [address] [place] [address] Referral ID Status Reason Start Date Expiration Date Visits Requested Visits Authorized [id number] Pending Review Auto-Generat ed Referral 04/12/2022 05/12/2023 1 1 [facility] Instructions Name Dates Details Non-smoker : How to access h ealth information online Indication:Non-smoker Non-smoker : How to access h ealth information online - Detail Indication:Non-smoker Non-smoker : Patient Instruc tions Indication:Non-smoker Breast cancer screening : Ty silva Instructions Indication:Breast cancer screening Osteopenia : How to access h ealth information online Indication:Osteopenia Osteopenia : How to access h ealth information online - Detail Indication:Osteopenia Cough : How to access health information online Indication:Cough Cough : How to access health information online - Detail Indication:Cough Cough : Patient Instructions Indication:Cough Current non-smoker : How to access health information online Indication:Current non-smoker Current non-smoker : How to access health information online - Detail Indication:Current non-smoker Current non-smoker : Patient Instructions Indication:Current non-smoker Vitamin D deficiency, unspec ified : How to access health information online Indication:Vitamin D deficiency, unspecified Vitamin D deficiency, unspec ified : How to access health information online - Detail Indication:Vitamin D deficiency, unspecified Vitamin D deficiency, unspec ified : Patient Instructions Indication:Vitamin D deficiency, unspecified Recurrent cold sores : How t o access health information online Indication:Recurrent cold sores Recurrent cold sores : How t o access health information online - Detail Indication:Recurrent cold sores Recurrent cold sores : Patie nt Instructions Indication:Recurrent cold sores Name Dates Details Non-smoker : How to access h ealth information online Indication:Non-smoker Non-smoker : How to access h ealth information online - Detail Indication:Non-smoker Non-smoker : Patient Instruc tions Indication:Non-smoker Breast cancer screening : Ty barnesnt Instructions Indication:Breast cancer screening Osteopenia : How to access h ealth information online Indication:Osteopenia Osteopenia : How to access h ealth information online - Detail Indication:Osteopenia Cough : How to access health information online Indication:Cough Cough : How to access health information online - Detail Indication:Cough Cough : Patient Instructions Indication:Cough Current non-smoker : How to access health information online Indication:Current non-smoker Current non-smoker : How to access health information online - Detail Indication:Current non-smoker Current non-smoker : Patient Instructions Indication:Current non-smoker Vitamin D deficiency, unspec ified : How to access health information online Indication:Vitamin D deficiency, unspecified Vitamin D deficiency, unspec ified : How to access health information online - Detail Indication:Vitamin D deficiency, unspecified Vitamin D deficiency, unspec ified : Patient Instructions Indication:Vitamin D deficiency, unspecified Recurrent cold sores : How t o access health information online Indication:Recurrent cold sores Recurrent cold sores : How t o access health information online - Detail Indication:Recurrent cold sores Recurrent cold sores : Patie nt Instructions Indication:Recurrent cold sores Summary Purpose Family History No Family History Records FoundNo Family History Records FoundNo Family History Records FoundNo Family History Records FoundNo Family History Records Found Advance Directives No Advanced Directives Records Found Name Dates Details Immunization Registry [place] - Effective on 03/12/2021. Expiration date unspecified Effective:12-Mar-2021 Name Dates Details Immunization Registry [place] - Effective on 03/12/2021. Expiration date unspecified Effective:12-Mar-2021 Name Dates Details Immunization Registry [place] - Effective on 03/12/2021. Expiration date unspecified Effective:12-Mar-2021 Name Dates Details Immunization Registry [place] - Effective on 03/12/2021. Expiration date unspecified Effective:12-Mar-2021 Name Dates Details Immunization Registry [place] - Effective on 03/12/2021. Expiration date unspecified Effective:12-Mar-2021 Name Dates Details Immunization Registry [place] - Effective on 03/12/2021. Expiration date unspecified Effective:12-Mar-2021 Name Dates Details Immunization Registry [place] - Effective on 03/12/2021. Expiration date unspecified Effective:12-Mar-2021 Name Dates Details Immunization Registry [place] - Effective on 03/12/2021. Expiration date unspecified Effective:12-Mar-2021 Name Dates Details Immunization Registry [place] - Effective on 03/12/2021. Expiration date unspecified Effective:12-Mar-2021 Name Dates Details Immunization Registry [place] - Effective on 03/12/2021. Expiration date unspecified Effective:12-Mar-2021 Name Dates Details Immunization Registry [place] - Effective on 03/12/2021. Expiration date unspecified Effective:12-Mar-2021 Name Dates Details Immunization Registry [place] - Effective on 03/12/2021. Expiration date unspecified Effective:12-Mar-2021 Name Dates Details Immunization Registry [place] - Effective on 03/12/2021. Expiration date unspecified Effective:12-Mar-2021 Name Dates Details Immunization Registry [place] - Effective on 03/12/2021. Expiration date unspecified Effective:12-Mar-2021 Name Dates Details Immunization Registry [place] - Effective on 03/12/2021. Expiration date unspecified Effective:12-Mar-2021 Name Dates Details Immunization Registry [place] - Effective on 03/12/2021. Expiration date unspecified Effective:12-Mar-2021 Reason for Referral Specialty Diagnoses / Procedures Referred By Kassandra viveros Referred To Contact [facility] Diagnoses Chronic cough Sensory neuropathy Procedures CONSULT TO SPEECH THERAPY OFFICE/OUTPATIENT CARE ONE AT [facility] 60-74 MINUTES Migdalia Jane DO [id number] [facility] [place] [address] Referral ID Status Reason Start Date Expiration Date Visits Requested Visits Authorized [id number] Pending Review Auto-Generat ed Referral 04/13/2022 04/13/2023 1 1 Additional Source Comments INFORMATION SOURCE (unrecogn ized section and content) DATE CREATED AUTHOR AUTHOR'S ORGANIZ ATION 11/16/2021 [facility] DATE CREATED AUTHOR AUTHOR'S ORGANIZ ATION 09/20/2022 [facility] DATE CREATED AUTHOR AUTHOR'S ORGANIZ ATION 10/05/2022 [facility] DATE CREATED AUTHOR AUTHOR'S ORGANIZ ATION 11/14/2023 [facility] Source Comments (unrecognize d section and content) In the event this informatio n is protected by the Federal Confidentiality of Alcohol and Drug Abuse Patient Records regulations: The Federal rules restrict any use of the information to criminally investigate or prosecute any alcohol or drug abuse patient.[facility] the event this information is protected by the Federal Confidentiality of Alcohol and Drug Abuse Patient Records regulations: The Federal rules restrict any use of the information to criminally investigate or prosecute any alcohol or drug abuse patient.[facility] the event this information is protected by the Federal Confidentiality of Alcohol and Drug Abuse Patient Records regulations: The Federal rules restrict any use of the information to criminally investigate or prosecute any alcohol or drug abuse patient.[facility] the event this information is protected by the Federal Confidentiality of Alcohol and Drug Abuse Patient Records regulations: The Federal rules restrict any use of the information to criminally investigate or prosecute any alcohol or drug abuse patient.[facility] the event this information is protected by the Federal Confidentiality of Alcohol and Drug Abuse Patient Records regulations: The Federal rules restrict any use of the information to criminally investigate or prosecute any alcohol or drug abuse patient.[facility] the event this information is protected by the Federal Confidentiality of Alcohol and Drug Abuse Patient Records regulations: The Federal rules restrict any use of the information to criminally investigate or prosecute any alcohol or drug abuse patient.[facility] the event this information is protected by the Federal Confidentiality of Alcohol and Drug Abuse Patient Records regulations: The Federal rules restrict any use of the information to criminally investigate or prosecute any alcohol or drug abuse patient.[facility] the event this information is protected by the Federal Confidentiality of Alcohol and Drug Abuse Patient Records regulations: The Federal rules restrict any use of the information to criminally investigate or prosecute any alcohol or drug abuse patient.[facility] Care Teams (unrecognized sec tion and content) Outside Medical Sales Representative Relationship Specialty Start Date End Date Gisselle Huggins, DO PCP - General 04/01/10 Outside Medical Sales Representative Relationship Specialty Start Date End Date Gisselle Huggins, DO PCP - General 04/01/10 Outside Medical Sales Representative Relationship Specialty Start Date End Date Gisselle Huggins, DO PCP - General 04/01/10 Outside Medical Sales Representative Relationship Specialty Start Date End Date Gisselle Huggins, DO PCP - General 04/01/10 Outside Medical Sales Representative Relationship Specialty Start Date End Date Gisselle Huggins, DO PCP - General 04/01/10 Reason for Visit (unrecogniz ed section and content) Specialty Diagnoses / Procedures Referred By Contac t Referred To Contact PULMONARY MEDICINE Diagnoses Cough, unspecified No Order LD Cough [R05.9] Procedures BRNCDILAT RSPSE SPMTRY PRE&POST-BRNCDILAT ADMN SPIROMETRY WITH DILATOR IF OBS Jennifer Gerard MD [address] [place] [address] [facility] [address] [place] [address] Referral ID Status Reason Start Date Expiration Date Visits Re quested Visits Authorized [id number] Closed 04/13/2022 10/15/2022 1 1 Specialty Diagnoses / Procedures Referred By Contac t Referred To Contact Pulmonary and Critical Care Medicine / INITIAL DEPT Diagnoses Cough Procedures CONSULT TO PULM/CRITICAL CARE OFFICE/OUTPATIENT CARE [facility] AT [facility] 60-74 MINUTES Jennifer Gerard MD [address] [place] [address] Migdalia Jane, DO [address] [facility] [address] [place] [address] Referral ID Status Reason Start Date Expiration Date Visits Requested Visits Authorized [id number] Authorized PCP Requested Referral 04/13/2022 10/15/2022 3 3 Reason Comments New Specialty Diagnoses / Procedures Referred By Kassandra t Referred To Contact Pulmonary and Critical Care Medicine / INITIAL DEPT Diagnoses Cough Procedures CONSULT TO PULM/CRITICAL CARE OFFICE/OUTPATIENT NEW HIGH MDM 60-74 MINUTES Jennifer Gerard MD [address] [place] [address] SumitMigdalia fuentes, DO [address] [place] [phone] Specialty Diagnoses / Procedures Referred By Kassandra t Referred To Contact Speech-Language Pathologist / SPEECH LANGUAGE PATHOLOGY Diagnoses speech therapy Procedures EVALUATION OF SPEECH FLUENCY (EG, STUTTERING, CLUTTERING) EVALUATION OF SPEECH SOUND PRODUCTION ARTICULATE NEW HNI PATIENT Migdalia Jane, DO [address] [place] [id number] Alba Cuellar, WOODY-CLINICAL PHLEBOTOMIST [address] [place] [address] Referral ID Status Reason Start Date Expiration Date Visits Re quested Visits Authorized [id number] Closed 08/18/2022 11/16/2022 1 1 FOR RECORDS PERTAINING TO PATIENTS WHO ARE OR HAVE BEEN ENROLLED IN A CHEMICAL DEPENDENCY/SUBSTANCEABUSE PROGRAM, SOME INFORMATION MAY BE OMITTED. This clinical summary was aggregated from multiple sources. Caution should be exercised in using it in the provision of clinical care. This summary normalizes information from multiple sources, and as a consequence, information in this document may materially change the coding, format and clinical context of patient data. In addition, data may be omitted in some cases. CLINICAL DECISIONS SHOULD BE BASED ON THE PRIMARY CLINICAL RECORDS. [facility] [employer] [facility]. provides no warranty or guarantee of the accuracy or completeness of information in this document.
== END | disposition home or self-care (01) ==
LOC: OPBI 07:07
PROVIDERS: PCP Internal Medicine; Referring Provider Internal Medicine; Visit Provider Internal Medicine
DX: Z12.31 Encounter for screening mammogram for malignant neoplasm of breast (principal); Z80.3 Family history of malignant neoplasm of breast
CPT/HCPCS: 77063; 77067

== ENCOUNTER → 2025-08-14 | Outpatient (CLI) | payer OTHER, SELFPAY ==
[2025-08-14 10:25] LABS: Hematocrit 39.4 % (37-47); Hemoglobin 13.3 g/dL (12.0-15.0); Immature Granulocytes Count 0.020 X10^3/uL (0.0-0.0); Mean Corp Hgb Conc 33.8 g/dL (32-36); Mean Corpuscular Volume 87.2 fL (81-99); Mean Platelet Vol. 10.4 fl (6.2-12.0); NRBC Flagged by Analyzer 0 % (0-5); Platelet Count 310 K/mm3 (150-450); RBC Distribution Width CV 12.5 % (11.6-14.6); RBC Distribution Width SD 39.8 fl (35.1-43.9); Red Blood Count 4.52 M/mm3 (4.2-5.4); White Blood Count 7.6 K/mm3 (4.4-11.0)
[2025-08-14 11:01] LABS: AST(SGOT) 28 U/L (<=31); Alanine Aminotransfer ALT/SGPT 30 U/L (<=34); Albumin, Serum 4.1 g/dL (3.4-4.8); Alkaline Phosphatase 90 U/L (35-104); Anion Gap 9 (5-15); BUN 12 mg/dL (4-19); BUN/Creat Ratio 18.2 RATIO (10-20); Calcium,Total 9.5 mg/dL (7.6-11.0); Carbon Dioxide 28.1 mmol/L (21.0-32.0); Chloride 104 mmol/L (98-108); Globulin 2.7 g/dL (2.2-4.2); Glucose 97 mg/dL (70-99); Potassium 4.2 mmol/L (3.3-5.1); Vitamin D,25 Hydroxy 23.3 ng/mL (30-100)
== END | disposition home or self-care (01) ==
LOC: MTLAB 07:38
PROVIDERS: PCP Internal Medicine; Referring Provider Internal Medicine; Visit Provider Internal Medicine
DX: E55.9 Vitamin D deficiency, unspecified (principal); R53.83 Other fatigue; Z13.29 Encounter for screening for other suspected endocrine disorder
CPT/HCPCS: 36415; 80053; 82306; 84443; 85025

== ENCOUNTER → 2025-08-21 | Outpatient (CLI) | payer OTHER, SELFPAY ==
[2025-08-21 11:08] LABS: Cholesterol 228 mg/dL (<=200); Low Density Lipoprotein Calc. 144 mg/dL; Triglycerides 71 mg/dL; Very Low Density Lipoprotein 14 mg/dL (5-40); Vitamin D,25 Hydroxy 24.3 ng/mL (30-100); cholesterol:hdl ratio screen 3.18
== END | disposition home or self-care (01) ==
LOC: MTLAB 07:17
PROVIDERS: PCP Internal Medicine; Referring Provider Internal Medicine; Visit Provider Internal Medicine
DX: Z13.220 Encounter for screening for lipoid disorders (principal)
CPT/HCPCS: 36415; 80061; 82306